=== PATIENT | female | born 1970 | race Caucasian/White ===

== ENCOUNTER → 2017-05-31 15:00 | Outpatient (CLI) | payer BC, SELFPAY ==
--- NOTE | 2017-05-31 15:09 | RAD_ITS ---
STUDY: X-RAY - PELVIS AND BILATERAL HIPS REASON FOR EXAM: Bilateral hip pain. TECHNIQUE: Radiological exam, hip, bilateral, with pelvis when performed; minimum of 5 views COMPARISON: None. FINDINGS: There are pelvic phleboliths. There is enthesopathy of the iliac wings bilaterally. Normal bilateral superior and inferior pubic rami. Normal pubic symphysis. Normal bilateral ischial tuberosities. Normal visualized right femoral head. Normal right acetabulum. Normal right hip joint. Normal visualized left femoral head. Normal left acetabulum. Normal left hip joint. RAD/Hips B/L min 2 views w/ Pelvis IMPRESSION: Pelvic enthesopathy. Otherwise, unremarkable x-ray examination of the pelvis and bilateral hips. Electronically Signed: Carlos Bowie MD at 15:22 EDT Tel , Service support ,
== END ==
PROVIDERS: Family Provider Family Medicine; PCP Family Medicine; Visit Provider Family Medicine
DX: M25.551 Pain in right hip (principal); M25.552 Pain in left hip
CPT/HCPCS: 73521

== ENCOUNTER → 2017-06-01 08:55 | Outpatient (CLI) | payer BC, SELFPAY ==
[2017-06-01 10:07] LABS: Anion Gap 7 (5-15); BUN 11 mg/dL (7-18); BUN/Creat Ratio 18.7 RATIO (10-20); Calcium,Total 8.5 mg/dL (8.5-10.1); Chloride 108 mmol/L (98-107); Cholesterol 165 mg/dL (200); Creatinine, Serum 0.59 mg/dL (0.55-1.02); EST Glomerular Filtration Rate 117 mL/min (>60); Est Glom Filt Rate - Afr Amer 141 mL/min (>60); Glucose 94 mg/dL (74-106); High Density Lipoprotein 35 mg/dL; Potassium 4.1 mmol/L (3.5-5.1); Sodium Level 141 mmol/L (136-145); Triglycerides 96 mg/dL; Very Low Density Lipoprotein 19 mg/dL (5-40)
[2017-06-01 10:27] LABS: Microalbumin:Creatinine Ratio 53.6 mg/g CRE (<30 mg/g CRE)
== END ==
PROVIDERS: Family Provider Family Medicine; PCP Family Medicine; Visit Provider Family Medicine
DX: E11.9 Type 2 diabetes mellitus without complications (principal)
CPT/HCPCS: 36415; 80048; 80061; 82043; 82570

== ENCOUNTER → 2017-08-30 15:18 | Outpatient (CLI) | payer BC, SELFPAY ==
[2017-08-30 19:24] LABS: Microalbumin:Creatinine Ratio 156.2 mg/g CRE (<30 mg/g CRE)
[2017-08-30 22:47] LABS: AST(SGOT) 16 U/L (15-37); Alanine Aminotransfer ALT/SGPT 29 U/L (13-56); Albumin, Serum 3.3 g/dL (3.2-5.0); Alkaline Phosphatase 81 U/L (45-117); Anion Gap 9 (5-15); BUN 11 mg/dL (7-18); BUN/Creat Ratio 15.8 RATIO (10-20); Bilirubin, Direct 0.07 mg/dL (0.00-0.30); Calcium,Total 8.8 mg/dL (8.5-10.1); Chloride 106 mmol/L (98-107); Cholesterol 149 mg/dL (200); EST Glomerular Filtration Rate 96 mL/min (>60); Est Glom Filt Rate - Afr Amer 116 mL/min (>60); Globulin 3.8 g/dL (2.2-4.2); Glucose 281 mg/dL (74-106); High Density Lipoprotein 28 mg/dL; Potassium 3.8 mmol/L (3.5-5.1); Protein, Total 7.1 g/dL (6.4-8.2); Sodium Level 139 mmol/L (136-145); Triglycerides 196 mg/dL; Very Low Density Lipoprotein 39 mg/dL (5-40)
== END ==
PROVIDERS: Family Provider Family Medicine; PCP Family Medicine; Visit Provider Family Medicine
DX: E11.9 Type 2 diabetes mellitus without complications (principal)
CPT/HCPCS: 36415; 80048; 80061; 80076; 82043; 82570

== ENCOUNTER 2017-12-13 08:24 | Observation (INO) | payer BC, SELFPAY ==
[2017-12-13] VITALS (13 sets, daily range): BP systolic 126–200; BP diastolic 72–95; PULSE 75–97; RESP 16–28; TEMP 36.6–37.1; O2SAT 96–100; BMI 31.7; BMI 31.6
--- NOTE | 2017-12-13 08:28 | NURSING ---
NO OLD EKGS
--- NOTE | 2017-12-13 08:33 | EKG12_ITS ---
Test Reason : CHEST PAIN Blood Pressure : / mmHG Vent. Rate : 097 BPM Atrial Rate : 097 BPM P-R Int : 148 ms QRS Dur : 100 ms QT Int : 394 ms P-R-T Axes : 076 034 074 degrees QTc Int : 500 ms Normal sinus rhythm Right atrial enlargement Prolonged QT Abnormal ECG Confirmed by GAYLA BRENNER, SADIQ ([id number]), communications editor POLLO BALLARD ([id number]) on 12/20/2017 2:04:40 PM Referred By: EMANUEL Confirmed By:SADIQ SHUKLA MD
--- NOTE | 2017-12-13 08:35 | RAD_ITS ---
STUDY: X-RAY CHEST REASON FOR EXAM: Female, 47 years old. Chest pain. TECHNIQUE: Single AP portable view of the chest. COMPARISON: None. FINDINGS: EKG electrodes are seen. Scattered calcified granuloma. The lungs are clear. There is no demonstrated pleural abnormality. Normal size heart. Normal mediastinum and jonathan. Normal visualized pulmonary arteries. Normal visualized aortic arch and descending thoracic aorta. Normal visualized thoracic spine. Normal visualized ribs, clavicles, and shoulders. There is a 1.6 cm rounded calcification in the right upper quadrant. This may represent a gallstone. RAD/Chest 1 View (Portable) IMPRESSION: Scattered calcified granulomas. The lungs are otherwise clear. Questionable calcified gallstone. Electronically Signed: Lex Haji MD at 8:49 EDT Tel [phone], Service support ,
[2017-12-13] MEDS: Aspirin 81 MG TAB.CHEW 324 MG PO (08:40)
--- NOTE | 2017-12-13 08:40 | ED.VISSUMM ---
- ER Visit Summary Date of Service: 12/13/17 Chief Complaint: Midsternal chest dullness aching with radiation to the left upper extremity associated with nausea and diaphoresis. History of Present Illness: The patient is a 47 F who presents with midsternal chest discomfort with radiation to left upper extremity associated with nausea and diaphoresis. Onset at 0800 while at work. She states she was sitting when this occurred. She denies prior episode. She is a smoker approximate 1 pack/day. 5 years ago she smoked 2 packs/day. She has history of diabetes and hypertension. She does report symptoms consistent with claudication after walking 1.5 blocks. She states she has not shaved her legs for approximately 1 year due to lack of hair growth. She states she is compliant with her hypertensive medication and diabetic medication. She has not been compliant with her antihypertensive because of cost. She denies fever, chills night sweats. She denies headache, anesthesia, paresthesia or motor weakness. She denies ocular, visual auditory symptoms. She denies history of peptic ulcer disease or GERD. She denies black or maroon stool. Physical Examination: Vital signs noted and blood pressure is elevated at 163/86. HEENT exam is remarkable for her being edentulous. Heart is regular without murmur, gallop or rub. Lungs are clear to auscultation with good move air bilaterally. Abdomen is soft nontender with no palpable cell mass or abdominal bruit. Patient has no hair noted on her legs or toes and her DP and PT pulses are absent bilaterally. Neuro exam is nonfocal. Test Results: EKG reveals a sinus rhythm with a ventricular rate of 97. There is evidence of cor pulmonale. QT interval is prolonged. MI interval is normal. QRS duration is 100 luis-seconds. There are no acute ischemic changes noted. Single view portable chest x-ray interpreted by me as negative for acute pathology. Cardiac silhouette normal. Mid sternum normal. There are chronic changes noted lung parenchyma. Osseous structures are normal. CBC is normal. Basic metabolic panel is remarkable for a glucose of 335 with a normal CO2 and anion gap. First troponin is less than 0.015. Emergency Department Course and Treatment: Concern patient's chest discomfort represents cardiac etiology. She was treated with aspirin and nitroglycerin sublingual since she is currently having substernal discomfort. EKG was obtained, chest x-ray and appropriate blood work. Will speak with cardiology regarding patient. Patient was reassessed at 0920. Patient reports she has minimal discomfort if any at this time. She reported marked improvement with the nitroglycerin. Dr. Dominguez has been paged to discuss case and determine if patient to be admitted to his service or hospitalist and if patient should have a cardiac cath versus stress test. Treatment Plan: Pending discussion with Dr. Dominguez Disposition: PCU Impression: 1. Midsternal chest pain 2. Hyperglycemia and type II diabetic new 3. Hypertension in patient with hypertension 4. Claudication after 1.5 blocks 5. Tobacco use This note was generated with [employer] dictation software. It may contain incorrect words, spelling, and punctuation that were not noted in review of the chart prior to signing ED Disposition - Plan for ED Patient: Chief Complaint: Chest Pain Referrals: Panfilo Mirza MD [Primary Care Provider] -
[2017-12-13 08:45] LABS: Absolute Lymphocyte Count 2.65 X10^3/ul (0.83-4.51); Basophil# 0.03 X10^3/uL; Basophil% 0.4 % (0-1); Eosinophil# 0.14 X10^3/uL; Eosinophils% 1.9 % (0-5); Lymphocyte # 2.65 X10^3/ul (4.0); Mean Corp Hgb Conc 34.1 g/gl (32-36); Mean Corpuscular Hgb 29.5 pg (27.0-32.0); Mean Corpuscular Volume 86.4 fL (81-99); Mean Platelet Vol. 11.6 fl (6.2-12.0); Monocyte# 0.59 X10^3/uL; Neutrophil # 3.95 X10^3/uL (2.7-7.7); Neutrophil % 53.6 % (47-70); POSITIVE COUNT NO; POSITIVE DIFFERENTIAL NO; POSITIVE MORPHOLOGY NO; Platelet Count 175 K/mm3 (150-450); RBC Distribution Width CV 12.9 % (11.6-14.6); RBC Distribution Width SD 39.8 fl (35.1-43.9); Red Blood Count 5.09 M/mm3 (4.2-5.4); White Blood Count 7.4 K/mm3 (4.4-11.0)
[2017-12-13 09:04] LABS: Anion Gap 9 (5-15); BUN 8 mg/dL (7-18); BUN/Creat Ratio 10.9 RATIO (10-20); Calcium,Total 8.7 mg/dL (8.5-10.1); Chloride 100 mmol/L (98-107); Creatinine, Serum 0.74 mg/dL (0.55-1.02); EST Glomerular Filtration Rate 90 mL/min (>60); Est Glom Filt Rate - Afr Amer 108 mL/min (>60); Estimated Creatinine Clearance 81.16 ml/min; Glucose 335 mg/dL (74-106); Potassium 3.6 mmol/L (3.5-5.1); Sodium Level 135 mmol/L (136-145)
--- NOTE | 2017-12-13 09:59 | NURSING ---
PCU OBS DAMIAN CP, HYPERGLYCEMIA, HYPERTENSION
--- NOTE | 2017-12-13 10:32 | EKG12_ITS ---
Test Reason : AM EKG Blood Pressure : / mmHG Vent. Rate : 075 BPM Atrial Rate : 075 BPM P-R Int : 170 ms QRS Dur : 104 ms QT Int : 436 ms P-R-T Axes : 070 027 051 degrees QTc Int : 486 ms Normal sinus rhythm Prolonged QT Abnormal ECG When compared with ECG of 13-DEC-2017 11:09, MANUAL COMPARISON REQUIRED, DATA IS UNCONFIRMED Confirmed by GAYLA BRENNER, SADIQ ([id number]), assignment desk editor POLLO BALLARD ([id number]) on 12/20/2017 2:32:35 PM Referred By: DAMIAN Confirmed By:SADIQ SHUKLA MD
--- NOTE | 2017-12-13 11:10 | PCM.HP.STD ---
Problem List (1) Chest pain Status: Acute Qualifiers: Chest pain type: chest pain due to myocardial ischemia Ischemic chest pain type: unstable angina pectoris Qualified Code(s): I20.0 - Unstable angina History of Present Illness Date of Admission: 12/13/17 Chief Complaint: chest pain The patient is a 47 year old F who was at work today in her normal state of both. 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 Chest pain was across her chest but radiated to her shoulders, down her left arm. It was associated with diaphoresis and headache, nausea and shortness of breath. Patient presented to the emergency room and received nitroglycerin that seemed to have abated the vast majority of this pain and discomfort. Patient is never had anything like this before. Patient being brought in for further chest pain evaluation. 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 Denies: Edema Respiratory: Reports: Shortness of Breath. Denies: Cough Gastrointestinal: Reports: Nausea. Denies: Vomiting Genitourinary: Denies: Dysuria Gynecological: Reports: - - LMP 1 month ago Musculoskeletal: Reports: Arm Pain - left arm, Shoulder Pain Skin: Denies: Rash, Wounds Neurological: Denies: Blurred vision, Double vision, Focal weakness, Numbness, Tingling Psychiatric: Reports: Depression. Denies: Anxiety Endocrine: Denies: Change in Body Habitus, Heat/ Cold Intolerance Hematologic/ Lymphatic: Denies: Easy Bruising, Easy Bleeding, Hx of blood clot VTE Information - Inpt Only VTE Present on Admission: No VTE Pharm Prophylaxis ordered?: Yes Patient Problems: Active and Suspected Problems (Last Updated 12/13/17 @ 11:21 by Boom Hansen DO) Chest pain (Acute) - Physical Exam General: Alert, Cooperative, No apparent distress HEENT: Atraumatic, Normocephalic Oral: Moist Mucosa, No Gingival or Mucosal Lesions/ Ulcerations Neck: No Nodes, Thyroid Normal Size and Texture Lungs: Clear to auscultation, Normal air movement, No rhonchi, No wheeze Cardiovascular: Regular rate, Regular Rhythm, Normal S1, Normal S2, No murmurs Abdomen: Bowel Sounds Present, Soft, Non Tender, Non-Distended, No Hepato-splenomegaly Extremities: No edema, No Calf Tenderness Skin: No rashes, No breakdown Musculoskeletal: No Tenderness to Palpation of Joints or Extremities, No Muscle Wasting Neurological: Neuro grossly intact, Sensory exam intact to light touch and pain Psych/Mental Status: Normal Affect, Appropriate Vital Signs Temp Pulse Resp BP Pulse Ox 36.6 C 78 16 126/72 H 100 12/13/17 10:57 12/13/17 10:57 12/13/17 10:57 12/13/17 10:57 12/13/17 10:57 Oxygen Flow Rate (L/min) 2 Oxygen Delivery Method Nasal Cannula Weight: 83.7 kg Body Mass Index (BMI) 31.6 Laboratory Tests Past 24 Hrs 12/13/17 12/13/17 08:36 08:36 WBC 7.4 RBC 5.09 Hgb 15.0 Hct 44.0 MCV 86.4 MCH 29.5 MCHC 34.1 RDW 12.9 RDW Differential 39.8 Plt Count 175 MPV 11.6 Immature Gran % (Auto) 0.100 Neut % (Auto) 53.6 Lymph % (Auto) 36.0 [place] % (Auto) 8.0 Eos % (Auto) 1.9 Baso % (Auto) 0.4 Absolute Neuts (auto) 4.0 Absolute Lymphs (auto) 2.65 Total Counted Not Reportable Sodium 135 L Potassium 3.6 Chloride 100 Carbon Dioxide 26.0 Anion Gap 9 BUN 8 Creatinine 0.74 Estim Creat Clear Calc 81.16 Est GFR (MDRD) Af Amer 108 Est GFR (MDRD) Non-Af 90 BUN/Creatinine Ratio 10.9 Glucose 335 H Calcium 8.7 Troponin I < 0.015 Assessment/Plan All Active Problems (Last Updated 12/13/17 @ 11:21 by Boom Hansen DO) Chest pain (Acute) 1. chest pain YASIR 2 KATE 72 check an additional troponin, if negative, then stress echocardiogram if stress negative, then DC home. If positive, then consult cardiology DW Dr. Dominguez, hold consult unless positive stress test Continue with ASA, PRN NTG 2. DM2 uncontrolled check an A1c SSI for now 3. Depression: continue Buspar 4. HTN stable, continue lisinopril 5. DVT proph: LMWH. Code Visit OBSV E&M: 95465 Initial observation care L3
--- NOTE | 2017-12-13 11:19 | HP.PCM_ITS ---
Problem List (1) Chest pain Status: Acute Qualifiers: Chest pain type: chest pain due to myocardial ischemia Ischemic chest pain type: unstable angina pectoris Qualified Code(s): I20.0 - Unstable angina History of Present Illness Date of Admission: 12/13/17 Chief Complaint: chest pain The patient is a 47 year old F who was at work today in her normal state of both. 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 Chest pain was across her chest but radiated to her shoulders, down her left arm. It was associated with diaphoresis and headache, nausea and shortness of breath. Patient presented to the emergency room and received nitroglycerin that seemed to have abated the vast majority of this pain and discomfort. Patient is never had anything like this before. Patient being brought in for further chest pain evaluation. [] Past Medical History Medical History: Medical History (Last Updated 12/13/17 @ 11:21 by Boom Hansen DO) DM2 (diabetes mellitus, type 2) E11.9 Depression F32.9 HTN (hypertension) I10 Allergies Penicillins [PCN] Allergy (Verified 12/13/17 08:28) Other INTENSIVIES WHAT IT IS SUPPOSED TO BE TREATING Home Medications: Ambulatory Orders Medication Instructions Recorded Bupropion HCl [Bupropion HCl Sr] 150 mg PO BID 12/13/17 Lisinopril [Zestril] 2.5 mg PO DAILY 12/13/17 Psychiatric History: Depression MEDICAID SPECIALIST History: No pertinent MEDICAID SPECIALIST history Smoking Status: Heavy Smoker (>10/day) Tobacco Use: Cigarettes Alcohol: None Drugs: None - *Family History Maternal History Items: Heart Disease Review of Systems Constitutional: Denies: Anorexia, Chills, Fever, Malaise, Weakness Eyes: Denies: Blurred vision, Double vision HEENT: Denies: Head Aches, Sinus Congestion, Sinus Drainage Cardiovascular: Reports: Chest Pain. Denies: Edema Respiratory: Reports: Shortness of Breath. Denies: Cough Gastrointestinal: Reports: Nausea. Denies: Vomiting Genitourinary: Denies: Dysuria Gynecological: Reports: - - LMP 1 month ago Musculoskeletal: Reports: Arm Pain - left arm, Shoulder Pain Skin: Denies: Rash, Wounds Neurological: Denies: Blurred vision, Double vision, Focal weakness, Numbness, Tingling Psychiatric: Reports: Depression. Denies: Anxiety Endocrine: Denies: Change in Body Habitus, Heat/ Cold Intolerance Hematologic/ Lymphatic: Denies: Easy Bruising, Easy Bleeding, Hx of blood clot VTE Information - Inpt Only VTE Present on Admission: No VTE Pharm Prophylaxis ordered?: Yes Patient Problems: Active and Suspected Problems (Last Updated 12/13/17 @ 11:21 by Boom Hansen DO) Chest pain (Acute) - Physical Exam General: Alert, Cooperative, No apparent distress HEENT: Atraumatic, Normocephalic Oral: Moist Mucosa, No Gingival or Mucosal Lesions/ Ulcerations Neck: No Nodes, Thyroid Normal Size and Texture Lungs: Clear to auscultation, Normal air movement, No rhonchi, No wheeze Cardiovascular: Regular rate, Regular Rhythm, Normal S1, Normal S2, No murmurs Abdomen: Bowel Sounds Present, Soft, Non Tender, Non-Distended, No Hepato- splenomegaly Extremities: No edema, No Calf Tenderness Skin: No rashes, No breakdown Musculoskeletal: No Tenderness to Palpation of Joints or Extremities, No Muscle Wasting Neurological: Neuro grossly intact, Sensory exam intact to light touch and pain Psych/Mental Status: Normal Affect, Appropriate Vital Signs Temp Pulse Resp BP Pulse Ox 36.6 C 78 16 126/72 H 100 12/13/17 10:57 12/13/17 10:57 12/13/17 10:57 12/13/17 10:57 12/13/17 10:57 Oxygen Flow Rate (L/min) 2 Oxygen Delivery Method Nasal Cannula Weight: 83.7 kg Body Mass Index (BMI) 31.6 Laboratory Tests Past 24 Hrs 12/13/17 12/13/17 08:36 08:36 WBC 7.4 RBC 5.09 Hgb 15.0 Hct 44.0 MCV 86.4 MCH 29.5 MCHC 34.1 RDW 12.9 RDW Differential 39.8 Plt Count 175 MPV 11.6 Immature Gran % (Auto) 0.100 Neut % (Auto) 53.6 Lymph % (Auto) 36.0 [place] % (Auto) 8.0 Eos % (Auto) 1.9 Baso % (Auto) 0.4 Absolute Neuts (auto) 4.0 Absolute Lymphs (auto) 2.65 Total Counted Not Reportable Sodium 135 L Potassium 3.6 Chloride 100 Carbon Dioxide 26.0 Anion Gap 9 BUN 8 Creatinine 0.74 Estim Creat Clear Calc 81.16 Est GFR (MDRD) Af Amer 108 Est GFR (MDRD) Non-Af 90 BUN/Creatinine Ratio 10.9 Glucose 335 H Calcium 8.7 Troponin I < 0.015 Assessment/Plan All Active Problems (Last Updated 12/13/17 @ 11:21 by Boom Hansen DO) Chest pain (Acute) 1. chest pain * YASIR 2 * KATE 72 * check an additional troponin, if negative, then stress echocardiogram * if stress negative, then DC home. If positive, then consult cardiology * DW Dr. Dominguez, hold consult unless positive stress test * Continue with ASA, PRN NTG 2. DM2 * uncontrolled * check an A1c * SSI for now 3. Depression: * continue Buspar 4. HTN * stable, continue lisinopril 5. DVT proph: LMWH. Code Visit OBSV E&M: 02502 Initial observation care L3
[2017-12-13 11:55] LABS: Bedside Glucose 270 mg/dL (70-110)
[2017-12-13] MEDS: Insulin Lispro 100 UNIT/ML INSULN.PEN SQ ×2 (12:07→15:48)
[2017-12-13 12:56] LABS: Hemoglobin A1c 9.5 % (4.2-6.3)
--- NOTE | 2017-12-13 13:06 | ECHOD_ITS ---
Reason For Study: chest pain Procedure This was a 2D Doppler, Color Flow transthoracic echocardiogram. Exam performed portable in patient room. Left Ventricle Normal size and thickness. Mild concentric left ventricular hypertrophy. Left ventricular systolic function is normal. The estimated ejection fraction is 70 %. Stage 1 diastolic dysfunction. No regional wall motion abnormalities noted. Right Ventricle Normal size and thickness. Normal systolic function. Atria Normal left atrium. Normal right atrium. Mitral Valve Normal mitral valve. Tricuspid Valve Normal tricuspid valve. Mild tricuspid valve insufficiency. Pulmonary artery systolic pressure is 28 mmHg. Aortic Valve Normal aortic valve. Trisinus/trileaflet aortic valve. Pulmonic Valve Normal pulmonic valve. Great Vessels Normal aortic root. The pulmonary artery is normal size. Normal inferior vena cava. Pericardium/Pleural No pericardial effusion. MMode/2D Measurements & Calculations LVIDd: 4.2 cm IVSd: 1.3 cm Ao root diam: 3.0 cm LVIDs: 2.8 cm LVPWd: 1.4 cm RVDd: 2.8 cm FS: 34.0 % LAV(MOD-bp): 45.1 ml LA A4 area: 15.7 cm2 LA dimension(2D): 3.9 cm LAV(MOD-bp) Indexed: 24.2 ml/m2 LAV(MOD-sp2): 43.4 ml LAV(MOD-sp4): 44.5 ml RA A4 area: 12.6 cm2 Doppler Measurements & Calculations MV E max negrito: 71.8 cm/sec Lat Peak E' Negrito: 10.4 cm/sec Med Peak E' Negrito: 6.6 cm/sec MV A max negrito: 85.8 cm/sec E/E' lat: 6.9 E/E' med: 10.8 MV E/A: 0.84 Ao V2 max: 161.0 cm/sec LV V1 max: 122.7 cm/sec PA V2 max: 110.6 cm/sec Ao max P.4 mmHg LV V1 max P.0 mmHg TR max negrito: 239.6 cm/sec TR max P.0 mmHg Interpretation Summary Normal size and thickness. Mild concentric left ventricular hypertrophy. Left ventricular systolic function is normal. The estimated ejection fraction is 70 %. Stage 1 diastolic dysfunction. Ordering Physician: Aditya Dominguez MD Referring Physician: Panfilo Mirza Performed By: Regina Mohan, ALEXANDRE, RVT
[2017-12-13 13:52] LABS: Internal QC Validated? YES +Cl - CLEAR BKGD; Pregnancy, Urine Negative Negative
[2017-12-13] MEDS: Clopidogrel Bisulfate 300 MG Tablet PO (14:57)
[2017-12-13 16:16] LABS: Bedside Glucose 368 mg/dL (70-110)
--- NOTE | 2017-12-13 17:25 | PCM.CONS.C ---
Reason for Consult Date of Consultation: 12/13/17 Reason for Consultation: Chest pressure History of Present Illness: The patient is a 47 year old F with a past medical history significant for hypertension and diabetes mellitus who presented to the emergency room after experiencing chest pressure. She described this as a tightness across her chest associated with nausea or diaphoresis and and vomiting. She presented to the emergency room was evaluated and given sublingual nitroglycerin with improvement in the discomfort. She says that there was associated heaviness in her left arm. It occurred at rest with minimal exertion. She does have a history of tobacco use. An electrocardiogram was done which did not demonstrate any significant abnormalities. Initially we had planned on performing a stress test but his second troponin came back mildly abnormal and therefore it was decided to reevaluate her. 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 Denies: Shortness of Breath, Orthopnea, PND, Peripheral Edema, Palpitations, Lightheadedness, Dizziness, Near Syncope, Syncope Respiratory: Denies: Cough, Sputum Production, Hemoptysis Gastrointestinal: Denies: Abdominal Discomfort, Hematemesis, Hematochezia, Melena Genitourinary: Denies: Dysuria, Hematuria Muscoloskeletal: Denies: Myalgias, Muscle Weakness Skin: Denies: Rash Neurological: Denies: Dizziness Psychiatric: Denies: Anxiety Endocrine: Denies: Heat Intolerance Hematologic/ Lymphatic: Denies: Anemia, Easy Brusing Subjectve: Pleasant lady in no apparent distress at this time Objective: Vital Signs Temp Pulse Resp BP Pulse Ox 98.1 F 87 18 134/78 H 97 12/13/17 16:50 12/13/17 16:50 12/13/17 16:50 12/13/17 16:50 12/13/17 16:50 Oxygen Flow Rate (L/min) 2 Oxygen Delivery Method Room Air Weight: 184 lb 8.43 oz Body Mass Index (BMI) 31.6 Intake and Output for Last 24 Hours 12/11/17 12/12/17 12/13/17 23:59 23:59 23:59 Intake Total 600 / 600 Balance 600 / 600 General: Awake, Alert, Oriented x 3 HEENT: PERRL, EOMI, Sclera Non Icteric Neck: Supple, Good ROM, No Lymph Node Enlargement Lungs: Clear to auscultation Cardiovascular: Regular Rhythm, Normal S1, Normal S2, No Murmurs, No Rubs, No Gallops Vascular: No Carotid Bruits, Normal Femoral Pulses, Normal Radial Pulses, Normal Dorsalis Pedal Pulse, Normal Posterior Tibial Pulses Abdomen: Bowel Sounds Present, Soft, Non Tender, No HSM, No Organomegaly Extremities: No Cyanosis, No Clubbing, No edema Neurological: No Focal Motor or Sensory Deficit 12/13/17 08:36: WBC 7.4, RBC 5.09, Hgb 15.0, Hct 44.0, MCV 86.4, MCH 29.5, MCHC 34.1, RDW 12.9, RDW Differential 39.8, Plt Count 175, MPV 11.6, Immature Gran % (Auto) 0.100, Neut % (Auto) 53.6, Lymph % (Auto) 36.0, [place] % (Auto) 8.0, Eos % (Auto) 1.9, Baso % (Auto) 0.4, Absolute Neuts (auto) 4.0, Total Counted Not Reportable 12/13/17 08:36: Sodium 135 L, Potassium 3.6, Chloride 100, Carbon Dioxide 26.0, Anion Gap 9, BUN 8, Creatinine 0.74, Est GFR (MDRD) Af Amer 108, Est GFR (MDRD) Non-Af 90, BUN/Creatinine Ratio 10.9, Glucose 335 H, Calcium 8.7, Troponin I < 0.015 12/13/17 11:55: Hemoglobin A1c 9.5 H 12/13/17 11:55: Troponin I 0.027 10/31/18 14:25: Troponin I 0.045 Rhythm: EKG: Normal sinus rhythm with no acute changes ECHO: Pending Assessment/Plan 1. Chest pain Patient presents with chest and arm pain which is somewhat concerning for angina. In light of the mildly abnormal troponin my recommendation would be for us to proceed with a left heart catheterization. The risk benefits and alternatives have been explained to her she understands and agrees to proceed. In the meantime we would institute the following medications. Aspirin 81 mg a day Metoprolol 25 mg twice a day Clopidogrel 300 mg now and 75 mg daily High intensity statin 2. Hypertension Pressure appears to be under decent control and will continue current medical therapy as noted above. Thank you for allowing me to participate in the care of your patient. Please don't hesitate to call if any issues arise
--- NOTE | 2017-12-13 17:29 | CON.PCM_ITS ---
Reason for Consult Date of Consultation: 12/13/17 Reason for Consultation: Chest pressure History of Present Illness: The patient is a 47 year old F with a past medical history significant for hypertension and diabetes mellitus who presented to the emergency room after experiencing chest pressure. She described this as a tightness across her chest associated with nausea or diaphoresis and and vomiting. She presented to the emergency room was evaluated and given sublingual nitroglycerin with improvement in the discomfort. She says that there was associated heaviness in her left arm. It occurred at rest with minimal exertion. She does have a history of tobacco use. An electrocardiogram was done which did not demonstrate any significant abnormalities. Initially we had planned on performing a stress test but his second troponin came back mildly abnormal and therefore it was decided to reevaluate her. 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 Denies: Shortness of Breath, Orthopnea, PND, Peripheral Edema, Palpitations, Lightheadedness, Dizziness, Near Syncope, Syncope Respiratory: Denies: Cough, Sputum Production, Hemoptysis Gastrointestinal: Denies: Abdominal Discomfort, Hematemesis, Hematochezia, Melena Genitourinary: Denies: Dysuria, Hematuria Muscoloskeletal: Denies: Myalgias, Muscle Weakness Skin: Denies: Rash Neurological: Denies: Dizziness Psychiatric: Denies: Anxiety Endocrine: Denies: Heat Intolerance Hematologic/ Lymphatic: Denies: Anemia, Easy Brusing Subjectve: Pleasant lady in no apparent distress at this time Objective: Vital Signs Temp Pulse Resp BP Pulse Ox 98.1 F 87 18 134/78 H 97 12/13/17 16:50 12/13/17 16:50 12/13/17 16:50 12/13/17 16:50 12/13/17 16:50 Oxygen Flow Rate (L/min) 2 Oxygen Delivery Method Room Air Weight: 184 lb 8.43 oz Body Mass Index (BMI) 31.6 Intake and Output for Last 24 Hours 12/11/17 12/12/17 12/13/17 23:59 23:59 23:59 Intake Total 600 / 600 Balance 600 / 600 General: Awake, Alert, Oriented x 3 HEENT: PERRL, EOMI, Sclera Non Icteric Neck: Supple, Good ROM, No Lymph Node Enlargement Lungs: Clear to auscultation Cardiovascular: Regular Rhythm, Normal S1, Normal S2, No Murmurs, No Rubs, No Gallops Vascular: No Carotid Bruits, Normal Femoral Pulses, Normal Radial Pulses, Normal Dorsalis Pedal Pulse, Normal Posterior Tibial Pulses Abdomen: Bowel Sounds Present, Soft, Non Tender, No HSM, No Organomegaly Extremities: No Cyanosis, No Clubbing, No edema Neurological: No Focal Motor or Sensory Deficit 12/13/17 08:36: WBC 7.4, RBC 5.09, Hgb 15.0, Hct 44.0, MCV 86.4, MCH 29.5, MCHC 34.1, RDW 12.9, RDW Differential 39.8, Plt Count 175, MPV 11.6, Immature Gran % (Auto) 0.100, Neut % (Auto) 53.6, Lymph % (Auto) 36.0, [place] % (Auto) 8.0, Eos % (Auto) 1.9, Baso % (Auto) 0.4, Absolute Neuts (auto) 4.0, Total Counted Not Reportable 12/13/17 08:36: Sodium 135 L, Potassium 3.6, Chloride 100, Carbon Dioxide 26.0, Anion Gap 9, BUN 8, Creatinine 0.74, Est GFR (MDRD) Af Amer 108, Est GFR (MDRD) Non-Af 90, BUN/Creatinine Ratio 10.9, Glucose 335 H, Calcium 8.7, Troponin I < 0.015 12/13/17 11:55: Hemoglobin A1c 9.5 H 12/13/17 11:55: Troponin I 0.027 12/13/17 14:25: Troponin I 0.045 Rhythm: EKG: Normal sinus rhythm with no acute changes ECHO: Pending Assessment/Plan 1. Chest pain * Patient presents with chest and arm pain which is somewhat concerning for angina. In light of the mildly abnormal troponin my recommendation would be for us to proceed with a left heart catheterization. The risk benefits and alternatives have been explained to her she understands and agrees to proceed. In the meantime we would institute the following medications. * Aspirin 81 mg a day * Metoprolol 25 mg twice a day * Clopidogrel 300 mg now and 75 mg daily * High intensity statin * 2. Hypertension * Pressure appears to be under decent control and will continue current medical therapy as noted above. * * Thank you for allowing me to participate in the care of your patient. Please don't hesitate to call if any issues arise
[2017-12-13] MEDS: Metoprolol Tartrate 25 MG Tablet PO (22:35)
[2017-12-13] MEDS: buPROPion (SR) 150 MG Tablet.SA PO (22:36)
[2017-12-13 22:46] LABS: Bedside Glucose 265 mg/dL (70-110)
[2017-12-14] VITALS (38 sets, daily range): BP systolic 104–204; BP diastolic 52–90; PULSE 62–106; RESP 10–29; TEMP 36.4–36.8; O2SAT 94–100
[2017-12-14] MEDS: Aspirin E.C. 81 MG Tablet PO (05:18)
--- NOTE | 2017-12-14 05:30 | EKG12_ITS ---
Test Reason : CP REPEAT Blood Pressure : / mmHG Vent. Rate : 072 BPM Atrial Rate : 072 BPM P-R Int : 146 ms QRS Dur : 100 ms QT Int : 442 ms P-R-T Axes : 062 045 069 degrees QTc Int : 483 ms Normal sinus rhythm Prolonged QT Abnormal ECG When compared with ECG of 13-DEC-2017 08:30, MANUAL COMPARISON REQUIRED, DATA IS UNCONFIRMED Confirmed by GAYLA BRENNER, SADIQ ([id number]), editor managing director POLLO BALLARD ([id number]) on 12/20/2017 2:33:53 PM Referred By: CLARISSE Confirmed By:SADIQ SHUKLA MD
[2017-12-14 06:48] LABS: Hematocrit 39.5 % (37-47); Hemoglobin 13.5 g/dl (12.0-15.0); Mean Corp Hgb Conc 34.2 g/gl (32-36); Mean Corpuscular Hgb 29.8 pg (27.0-32.0); Mean Corpuscular Volume 87.2 fL (81-99); Mean Platelet Vol. 12.2 fl (6.2-12.0); Platelet Count 171 K/mm3 (150-450); RBC Distribution Width CV 12.9 % (11.6-14.6); RBC Distribution Width SD 39.9 fl (35.1-43.9); Red Blood Count 4.53 M/mm3 (4.2-5.4); White Blood Count 8.4 K/mm3 (4.4-11.0)
[2017-12-14 06:54] LABS: Prothrombin Time (Protime)PT. 13.5 SECONDS (11.7-14.9)
[2017-12-14 06:55] LABS: Partial Thromboplast Time 27.3 Seconds (24.1-36.2)
[2017-12-14 07:08] LABS: BUN 12 mg/dL (7-18); Creatinine, Serum 0.56 mg/dL (0.55-1.02); Estimated Creatinine Clearance 107.24 ml/min; Glucose 274 mg/dL (74-106)
[2017-12-14 07:09] LABS: Anion Gap 8 (5-15); BUN/Creat Ratio 21.5 RATIO (10-20); Calcium,Total 8.4 mg/dL (8.5-10.1); Chloride 106 mmol/L (98-107); EST Glomerular Filtration Rate 123 mL/min (>60); Est Glom Filt Rate - Afr Amer 149 mL/min (>60); Potassium 3.9 mmol/L (3.5-5.1); Sodium Level 137 mmol/L (136-145)
[2017-12-14 07:11] LABS: Scan Indicated on CBC? Y/N NO
[2017-12-14 07:20] LABS: Bedside Glucose 271 mg/dL (70-110)
[2017-12-14] MEDS: Clopidogrel Bisulfate 75 MG Tablet PO (07:31)
[2017-12-14] MEDS: Metoprolol Tartrate 25 MG Tablet PO ×2 (07:31→21:30)
[2017-12-14] MEDS: Lisinopril 2.5 MG Tablet PO (07:31)
[2017-12-14] MEDS: Insulin Lispro 100 UNIT/ML INSULN.PEN SQ ×3 (07:33→18:06)
[2017-12-14 08:07] LABS: Cholesterol 149 mg/dL (200); High Density Lipoprotein 27 mg/dL; Triglycerides 161 mg/dL; Very Low Density Lipoprotein 32 mg/dL (5-40)
--- NOTE | 2017-12-14 09:04 | PN.CARD_ITS ---
Subjectve: Patient seen and evaluated. Objective: Vital Signs Temp Pulse Resp BP Pulse Ox 98.2 F 73 20 H 140/76 H 96 12/14/17 07:26 12/14/17 07:31 12/14/17 07:26 12/14/17 07:31 12/14/17 07:26 Oxygen Flow Rate (L/min) 2 Oxygen Delivery Method Room Air Weight: 184 lb 8.43 oz Body Mass Index (BMI) 31.6 Intake and Output for Last 24 Hours 12/12/17 12/13/17 12/14/17 23:59 23:59 23:59 Intake Total 720 / 720 50 / 50 Balance 720 / 720 50 / 50 General: Awake, Alert, Oriented x 3 HEENT: PERRL, EOMI, Sclera Non Icteric Neck: Supple, Good ROM, No Lymph Node Enlargement Lungs: Clear to auscultation Cardiovascular: Regular Rhythm, Normal S1, Normal S2, No Murmurs, No Rubs, No Gallops Vascular: No Carotid Bruits, Normal Femoral Pulses, Normal Radial Pulses, Normal Dorsalis Pedal Pulse, Normal Posterior Tibial Pulses Abdomen: Bowel Sounds Present, Soft, Non Tender, No HSM, No Organomegaly Extremities: No Cyanosis, No Clubbing, No edema Neurological: No Focal Motor or Sensory Deficit 12/13/17 08:36: Sodium 135 L, Potassium 3.6, Chloride 100, Carbon Dioxide 26.0, Anion Gap 9, BUN 8, Creatinine 0.74, Est GFR (MDRD) Af Amer 108, Est GFR (MDRD) Non-Af 90, BUN/Creatinine Ratio 10.9, Glucose 335 H, Calcium 8.7, Troponin I < 0.015 12/13/17 11:55: Hemoglobin A1c 9.5 H 12/13/17 11:55: Troponin I 0.027 12/13/17 14:25: Troponin I 0.045 12/14/17 06:12: Triglycerides 161, Cholesterol 149, LDL Cholesterol 90, VLDL Cholesterol 32, HDL Cholesterol 27 L 12/14/17 06:12: WBC 8.4, RBC 4.53, Hgb 13.5, Hct 39.5, MCV 87.2, MCH 29.8, MCHC 34.2, RDW 12.9, RDW Differential 39.9, Plt Count 171, MPV 12.2 H 12/14/17 06:12: PT 13.5, INR 1.0, APTT 27.3 12/14/17 06:12: Sodium 137, Potassium 3.9, Chloride 106, Carbon Dioxide 23.0, Anion Gap 8, BUN 12, Creatinine 0.56, Est GFR (MDRD) Af Amer 149, Est GFR (MDRD) Non-Af 123, BUN/Creatinine Ratio 21.5 H, Glucose 274 H, Calcium 8.4 L Rhythm: EKG: ECHO: Stress Test: Cardiac Cath: PCI: CT Surgery: Holter monitor: EPS: PPM: CXR: Chest CT Scan: Medical Necessity - Tobacco Use Smoking Status: Heavy Smoker (>10/day) Tobacco Use: Cigarettes Assessment/Plan 1. Chest pain * Patient presents with chest and arm pain which is somewhat concerning for angina. In light of the mildly abnormal troponin my recommendation would be for us to proceed with a left heart catheterization. * She underwent a cardiac catheterization today which demonstrated the following: Normal left main coronary artery. Left anterior descending artery with no significant disease. Left circumflex artery which is codominant with no significant stenosis. First obtuse marginal branch with proximal 50% stenosis. Codominant right coronary artery with ostial 95% stenosis. Preserved left ventricular systolic function. Based on the above angiographic findings the patient will be considered for angioplasty of the right coronary artery. * 2. Hypertension * Pressure appears to be under decent control and will continue current medical therapy as noted above. * * Thank you for allowing me to participate in the care of your patient. Please don't hesitate to call if any issues arise
--- NOTE | 2017-12-14 09:10 | CL.D_ITS ---
Patient Name: WILDER BALDERAS Study Date: 12/14/2017 Performing: Aditya Dominguez MD Ht: 64.17 inches 163 cm : 1970 Wt: 185.19 lbs 84 kg Age: 47 Gender: female BSA: 1.9 PROCEDURE(S) PERFORMED OC95-FVM/COR/LV CLINICAL PROFILE AND INDICATIONS Indications: ACS <= 24 hrs Heart Failure: None Stress/Imaging Stress/Image Study Performed: No Angina Classification Anginal Classification w/in 2 Weeks: CCS III CAD Presentations: Unstable angina. CONCLUSIONS ostial RCA stenosis 95% RECOMMENDATIONS Referred for immediate PCI DESCRIPTION OF PROCEDURE The patient arrived to the procedure lab. The risks and benefits of the procedure as well as a full d escription of our services here and current unavailability of surgical backup were fully explained to the patient and/or their significant other prior to the catheterization. The Timeout was completed, verifying the correct patient and procedure. The patient's procedural site was prepped and draped in the usual fashion. Local anesthetic was given subcutaneously to right radial region with Lidocaine 2% . Using a modified Seldinger technique, arterial access was obtained via the right radial artery, a 6 Fr sheath was inserted. Right Coronary Artery selective angiography was then performed in multiple v iews using a 5 Fr. 4.0 Van Wert catheter. Left Coronary Artery selective angiography was performed in mu ltiple views using a 5 Fr. 4.0 [place] Wert catheter. Left Ventriculography was performed in MATTHEWS projection using a 5 Fr. Pigtail catheter. LV to AO pullback pressures were then recorded. CORONARY ANGIOGRAPHY DOMINANCE: Co- Dominant LEFT HEART ASSESSMENT Left Ventricular Ejection Fraction: by LV Gram 55 % Normal Left Ventricular systolic function LEFT MAIN: Angiographically normal LEFT ANTERIOR DECENDING ARTERY: Mild luminal irregularities CIRCUMFLEX ARTERY: Mild luminal irregularities OM 1: Ostial - Moderate luminal irregularities up to 50% RIGHT CORONARY ARTERY: Mild luminal irregularities OSTIAL RCA: 95 % Stenosis COMPLICATIONS PROCEDURE MEDICATIONS Fentanyl 50 mcg IV Versed 1 mg IV Versed 1 mg IV Oxygen: 2 L/min via nasal cannula Heparin diluted in 23cc Heparinized saline. Patient given 10cc IA of this solution. 12/14/2017 08:04: 36 Heparin 7000 unit(s) IV 12/14/2017 08:55:37 Heparin 2000 unit(s) IV 12/14/2017 09:09:11 Nitro 200 mcg IC 12/14/2017 09:05:31 Verapamil 2.5mg, Ntg 100mcgs, 2000 units of Heparin diluted in 23cc Heparinized saline. Patient give n 10cc IA of this solution. 12/14/2017 08:04:36 IV Bolus: .9 NaCl 250 ml total 12/14/2017 08:08:07 IV Bolus: .9 NaCl 500 ml total 12/14/2017 09:05:57 IV Fluids: .9 NaCl IV started @ 150 ml/hr 12/14/2017 08:23:12 SUMMARY OF HEMODYNAMIC DATA Time AIR REST ECG 07:48:31 AO 107/65 (83) SA 08:06:18 AO 91/58 (73) 08:08:15 LV 135/-2, 5 08:25:57 LV 118/0, 8 08:26:03 LV 144/-12, 10 08:27:18 LVp 149/-12, 11 08:27:23 AOp 152/58 (92) 08:27:28 AO 163/78 (109) 09:03:22 Signed By Aditya Dominguez MD On 12/14/2017 09:09:54 Aditya Dominguez MD
--- NOTE | 2017-12-14 09:30 | EKG12_ITS ---
Test Reason : POST PCI Blood Pressure : / mmHG Vent. Rate : 064 BPM Atrial Rate : 064 BPM P-R Int : 158 ms QRS Dur : 108 ms QT Int : 456 ms P-R-T Axes : 058 035 059 degrees QTc Int : 470 ms Normal sinus rhythm Normal ECG When compared with ECG of 14-DEC-2017 04:03, MANUAL COMPARISON REQUIRED, DATA IS UNCONFIRMED Confirmed by GAYLA BRENNER, SADIQ ([id number]), editor news POLLO BALLARD ([id number]) on 12/21/2017 4:15:22 PM Referred By: KUNAL Confirmed By:SADIQ SHUKLA MD
--- NOTE | 2017-12-14 10:01 | CRPHASE1 ---
Patient Data/Charges Phase II Referral:: [facility] Start Phase II:: FOLLOWING CARDIOLOGY OFFICE VISIT Risk Factors/Lifestyle Smoking Status: Heavy Smoker (>10/day) Hx Hypertension: Yes Hx Diabetes Mellitus Type 2: Yes Hx Metabolic Disorders: Yes Hx Dyslipidemia: Yes Hx Obesity: Yes Height: 5 ft 4 in - BMI 31.7 Post-Menopausal: No Stress: Home/Family Risk Factor for Sedentary Lifestyle: Moderate Risk Laboratory Values: Cardiac Rehab Phase I Labs Hemoglobin A1c 9.5 % (4.2-6.3) H 12/13/17 11:55 Triglycerides 161 mg/dL (-199) 12/14/17 06:12 Cholesterol 149 mg/dL (200) 12/14/17 06:12 LDL Cholesterol 90 mg/dL (0-130) 12/14/17 06:12 HDL Cholesterol 27 mg/dL (40-) L 12/14/17 06:12 Phase I Education Given On:: [place], Nutrition, Antiplatelet medication, Smoking cessation, Diabetes - Type II Issues Affecting Care:: None Knowledge of Condition:: Yes Learning Preferences: Verbal, Written Hospital Course Presenting Symptoms:: CHEST PAIN Medical/Surgical History [place]:: No Diabetes Type II:: Yes - a1c 9.5 Hypertension:: Yes Dyslipidemia:: Yes Discharge/Home/Social Eval Discharge Disposition: Home
--- NOTE | 2017-12-14 10:04 | CRPHASE1_ITS ---
Patient Data/Charges Phase II Referral:: [facility] Start Phase II:: FOLLOWING CARDIOLOGY OFFICE VISIT Risk Factors/Lifestyle Smoking Status: Heavy Smoker (>10/day) Hx Hypertension: Yes Hx Diabetes Mellitus Type 2: Yes Hx Metabolic Disorders: Yes Hx Dyslipidemia: Yes Hx Obesity: Yes Height: 5 ft 4 in - BMI 31.7 Post-Menopausal: No Stress: Home/Family Risk Factor for Sedentary Lifestyle: Moderate Risk Laboratory Values: Cardiac Rehab Phase I Labs Hemoglobin A1c 9.5 % (4.2-6.3) H 12/13/17 11:55 Triglycerides 161 mg/dL (-199) 12/14/17 06:12 Cholesterol 149 mg/dL (200) 12/14/17 06:12 LDL Cholesterol 90 mg/dL (0-130) 12/14/17 06:12 HDL Cholesterol 27 mg/dL (40-) L 12/14/17 06:12 Phase I Education Given On:: [place], Nutrition, Antiplatelet medication, Smoking cessation, Diabetes - Type II Issues Affecting Care:: None Knowledge of Condition:: Yes Learning Preferences: Verbal, Written Hospital Course Presenting Symptoms:: CHEST PAIN Medical/Surgical History [place]:: No Diabetes Type II:: Yes - a1c 9.5 Hypertension:: Yes Dyslipidemia:: Yes Discharge/Home/Social Eval Discharge Disposition: Home
--- NOTE | 2017-12-14 10:04 | CRPH1.INSTRU ---
General Education CAD and cardiac anatomy and function:: Patient communicates acknowledgment Explanation of diagnoses and procedures:: Patient communicates acknowledgment Sign/Symptoms of [place]:: Patient communicates acknowledgment Antiplatelet therapy: Patient communicates acknowledgment Proper use of NTG-SL: Patient communicates acknowledgment Emergency procedures and activation of EMS: Patient communicates acknowledgment Compliance of all prescribed medications: Patient communicates acknowledgment Smoking Patient Nicotine/Smoking Risk Factors Are:: Cigarettes Recommendations Include:: Second-hand smoke recommendation, Participation in a smoking cessation program Nicotine/Smoking Response Code:: Patient communicates acknowledgment Dyslipidemia Patient Dyslipidemia Risk Factors Are:: Total Cholesterol, Triglycerides, HDL, LDL Recommendations Include:: Lipid profile provided, Reviewed NCEP/ATP guidelines, Therapeutic Lifestyle Change dietary guidelines Dyslipidemia Response Code:: Patient communicates acknowledgment Overweight/Obesity Patient Overweight/Obesity Risk Factors Are:: Obesity - > or = 30 Recommendations Include:: Weight loss of 5-10%, Reduced calorie diet, Exercise 5-7 times/week Overweight/Obesity:: Patient communicates acknowledgment Hypertension Recommendations Include:: BP <130/80 if diabetic, DASH dietary guidelines, Decrease/maintain normal body weight, Moderation of ETOH Hypertension:: Patient communicates acknowledgment Diabetes Patient Diabetes Risk Factors Are:: Elevated blood sugars Recommendations Include:: Maintain fasting blood sugars 70-110 md/dL, Maintain HgbA1c of 6% or less, Monitor blood sugar as prescribed, Diabetic dietary guidelines, Decrease/maintain body weight Diabetes:: Patient communicates acknowledgment Metabolic Syndrome Patient Metabolic Syndrome Risk Factors Are [3 of 5]:: Fasting blood sugar > 100 mg/dL, Waist circumference > 35 [female] or 40 [male], High triglyceride >150, Hypertension, Low HDL <40 [male] or < 50 [female] Recommendations Include:: Reinforce compliance to risk factor modifications, Patient is diabetic, Encouraged follow-up with Primary Care Physician Metabolic Syndrome Response Code:: Patient communicates acknowledgment Sedentary Patient Sedentary Risk Factors Are:: Lack of regular exercise Recommendations Include:: Aerobic exercise 5-7 times/week for 20-30 minutes continuously, Benefits of regular exercise, Discussed home walking program, Monitored Outpatient Cardiac Rehab Sedentary Response Code:: Patient communicates acknowledgment Stress Recommendations Include:: Identification of stressors, and assessment of coping skills, Stress management techniques Stress Response Code:: Patient communicates acknowledgment
[2017-12-14] MEDS: 0.9% Normal Saline 1,000 ML 100 ML IV (10:25)
[2017-12-14] MEDS: buPROPion (SR) 150 MG Tablet.SA PO ×2 (10:26→21:31)
[2017-12-14 10:56] LABS: ACT Activated Clotting Time 224 sec (74-137)
[2017-12-14 10:56] LABS: ACT Activated Clotting Time 202 sec (74-137)
--- NOTE | 2017-12-14 11:06 | CL.I_ITS ---
Patient Name: WILDER BALDERAS Study Date: 12/14/2017 Performing: Alisa Martinez MD Ht: 64.17 inches 163 cm : 1970 Wt: 185.19 lbs 84 kg Age: 47 Gender: female BSA: 1.9 PROCEDURE(S) PERFORMED [id number] W OR WO PTCA, SINGLE CORONARY ARTERY CLINICAL PROFILE AND CO-MORBIDITIES Indications: ACS <= 24 hrs Heart Failure: None Stress/Imaging Stress/Image Study Performed: No Angina Classification Anginal Classification w/in 2 Weeks: CCS III CAD Presentations: Unstable angina. CONCLUSIONS Successful PTCA/SUHAIL ostial RCA using Resolute Integrity 2.5x8 mm, post-dilated using 2.75 mm balloon RECOMMENDATIONS ASA Indefinitley Plavix for at least 12 months INTERVENTION INFORMATION LESION SITE: RCA (Ostial) Lesion Complexity: Non-High/Non-C, culprit lesion: Yes Pre Stenosis: 95 % Pre intervention YASIR flow: 3 PROCEDURE: Drug Eluting Stent with pre and post dilatation Post Stenosis: 0 % Post intervention YASIR flow: 3 Lesion Devices: Cordis 6 Fr JR4 100cm Guide Catheter Terumo .014 Runthrough Extra Floppy 180cm straight [employer] EMERGE MR 2.50x12 BALLOON [employer] Resolute RX SUHAIL 2.5x08 [employer] [place] EMERGE MR 2.75x08 [place]ALL[place] COMPLICATIONS No Complications PROCEDURE MEDICATIONS Fentanyl 50 mcg IV Versed 1 mg IV Versed 1 mg IV Oxygen: 2 L/min via nasal cannula Heparin diluted in 23cc Heparinized saline. Patient given 10cc IA of this solution. 12/14/2017 08:04: 36 Heparin 7000 unit(s) IV 12/14/2017 08:55:37 Heparin 2000 unit(s) IV 12/14/2017 09:09:11 Heparin 2000 unit(s) IV 12/14/2017 09:31:12 Nitro 200 mcg IC 12/14/2017 09:05:31 Nitro 200 mcg IC 12/14/2017 09:05:31 Verapamil 2.5mg, Ntg 100mcgs, 2000 units of Heparin diluted in 23cc Heparinized saline. Patient give n 10cc IA of this solution. 12/14/2017 08:04:36 IV Bolus: .9 NaCl 250 ml total 12/14/2017 08:08:07 IV Bolus: .9 NaCl 500 ml total 12/14/2017 09:05:57 IV Fluids: .9 NaCl IV started @ 150 ml/hr 12/14/2017 08:23:12 SUMMARY OF HEMODYNAMIC DATA Time AIR REST ECG 07:48:31 AO 107/65 (83) SA 08:06:18 AO 91/58 (73) 08:08:15 LV 135/-2, 5 08:25:57 LV 118/0, 8 08:26:03 LV 144/-12, 10 08:27:18 LVp 149/-12, 11 08:27:23 AOp 152/58 (92) 08:27:28 AO 163/78 (109) 09:03:22 Signed By Alisa Martinez MD On 12/14/2017 11:06:03 AM Alisa Martinez MD
[2017-12-14 11:45] LABS: Bedside Glucose 233 mg/dL (70-110)
--- NOTE | 2017-12-14 13:22 | PCM.PN.HOSP ---
Patient Problems: Active and Suspected Problems (Last Updated 12/13/17 @ 11:21 by Boom Hansen DO) Chest pain (Acute) Subjective: Some wrist pain, post cath. Vitals/I&O's: Vital Signs Temp Pulse Resp BP Pulse Ox 36.7 C 70 24 H 140/69 H 99 12/14/17 12:00 12/14/17 12:00 12/14/17 12:00 12/14/17 12:00 12/14/17 12:00 Oxygen Flow Rate (L/min) 2 Oxygen Delivery Method Room Air Weight: 83.7 kg Body Mass Index (BMI) 31.6 Intake and Output for Last 24 Hours 12/12/17 12/13/17 12/14/17 23:59 23:59 23:59 Intake Total 720 / 720 250 / 250 Balance 720 / 720 250 / 250 General: Alert, No apparent distress HEENT: Atraumatic, Normocephalic Oral: Moist Mucosa, No Gingival or Mucosal Lesions/ Ulcerations Neck: No Nodes, Thyroid Normal Size and Texture Lungs: Clear to auscultation, Normal air movement, No rhonchi, No wheeze Cardiovascular: Regular rate, Regular Rhythm, Normal S1, Normal S2, No murmurs Abdomen: Bowel Sounds Present, Soft, Non Tender, Non-Distended, No Hepato-splenomegaly Extremities: No edema, No Calf Tenderness Skin: No rashes, No breakdown Psych/Mental Status: Normal Affect, Appropriate Laboratory Results 12/13/17 13:38: Urine Test Negative 12/13/17 14:25: Troponin I 0.045 12/13/17 15:46: POC Glucose 368 H 12/13/17 22:32: POC Glucose 265 H 12/14/17 06:12: Triglycerides 161, Cholesterol 149, LDL Cholesterol 90, VLDL Cholesterol 32, HDL Cholesterol 27 L 12/14/17 06:12: WBC 8.4, RBC 4.53, Hgb 13.5, Hct 39.5, MCV 87.2, MCH 29.8, MCHC 34.2, RDW 12.9, RDW Differential 39.9, Plt Count 171, MPV 12.2 H 12/14/17 06:12: PT 13.5, INR 1.0, APTT 27.3 12/14/17 06:12: Sodium 137, Potassium 3.9, Chloride 106, Carbon Dioxide 23.0, Anion Gap 8, BUN 12, Creatinine 0.56, Estim Creat Clear Calc 107.24, Est GFR (MDRD) Af Amer 149, Est GFR (MDRD) Non-Af 123, BUN/Creatinine Ratio 21.5 H, Glucose 274 H, Calcium 8.4 L 12/14/17 07:03: POC Glucose 271 H 12/14/17 09:01: Activated Clotting Time 224 H 12/14/17 09:27: Activated Clotting Time 202 H 12/14/17 11:35: POC Glucose 233 H Current Medications Acetaminophen (Tylenol) 650 mg PO Q6H PRN PRN PRN Reason: Mild Pain (1-3)/Temp > 100.7 F Aspirin (Ecotrin) 81 mg PO DAILY@0800 [facility] Last Admin: 12/14/17 05:18 Dose: 81 mg Atropine Sulfate () 0.5 mg IV UD PRN PRN Reason: HR <50 bpm Bupropion HCl (Wellbutrin Sr (150mg Tablets)) 150 mg PO BID [facility] Last Admin: 12/14/17 10:26 Dose: 150 mg Clopidogrel Bisulfate (Plavix) 75 mg PO DAILY [facility] Last Admin: 12/14/17 07:31 Dose: 75 mg Dextrose (D50w Syringe) 0 gm IV X1 PRN; Protocol PRN Reason: Hypoglycemia Enoxaparin Sodium (Lovenox) 40 mg SC DAILY@1000 [facility] Last Admin: 12/14/17 10:26 Dose: Not Given Glucagon () 1 mg IM .X1 PRN PRN Reason: Hypoglycemia Sodium Chloride () 1,000 mls @ 100 mls/hr IV .Q10H [facility] Stop: 12/14/17 19:27 Last Admin: 12/14/17 10:25 Dose: 100 mls/hr Insulin Human Lispro (Humalog Kwikpen (Bkc)) 0 unit SQ TIDAC [facility]; Protocol Last Admin: 12/14/17 11:39 Dose: 3 u Lisinopril (Zestril) 2.5 mg PO DAILY [facility] Last Admin: 12/14/17 07:31 Dose: 2.5 mg Magnesium Hydroxide (Milk Of Magnesia) 30 ml PO DAILY PRN PRN Reason: Constipation Metoprolol Tartrate (Lopressor (Beta Chinyere)) 25 mg PO BID [facility] Last Admin: 12/14/17 07:31 Dose: 25 mg Nitroglycerin (Nitrostat) 0.4 mg SUBLINGUAL Q5M PRN PRN Reason: CHEST PAIN Nystatin (Mycostatin Powder) 1 applic TOPICAL TID [facility]; Protocol Last Admin: 12/14/17 05:16 Dose: Not Given Ondansetron HCl (Zofran) 4 mg IV Q8H PRN PRN PRN Reason: NAUSEA Oxycodone HCl (Oxyir) 5 - 10 mg PO Q4H PRN PRN PRN Reason: MOD-SEVERE PAIN (4-10/10) Sodium Chloride () 5 - 30 ml IV UD PRN PRN Reason: SALINE FLUSH Sodium Chloride () 500 ml IV BOLUS PRN PRN Reason: VASO-VAGAL PROTOCOL Medical Necessity - Tobacco Use Smoking Status: Heavy Smoker (>10/day) Tobacco Use: Cigarettes Assessment/Plan All Active Problems (Last Updated 12/13/17 @ 11:21 by Boom Hansen DO) Chest pain (Acute) 1. unstable angina YASIR 2 KATE 72 s/p PCI to RCA check an additional troponin, if negative, then stress echocardiogram on DAPT, high intensity statin 2. DM2 uncontrolled check an A1c SSI for now resume glimepiride 3. Depression: continue Buspar 4. HTN stable, continue lisinopril 5. DVT proph: LMWH. Code Visit Inpatient E&M: 75486 Subs Hosp L2
--- NOTE | 2017-12-14 13:34 | PN_ITS ---
Patient Problems: Active and Suspected Problems (Last Updated 12/13/17 @ 11:21 by Boom Hansen DO) Chest pain (Acute) Subjective: Some wrist pain, post cath. Vitals/I&O's: Vital Signs Temp Pulse Resp BP Pulse Ox 36.7 C 70 24 H 140/69 H 99 12/14/17 12:00 12/14/17 12:00 12/14/17 12:00 12/14/17 12:00 12/14/17 12:00 Oxygen Flow Rate (L/min) 2 Oxygen Delivery Method Room Air Weight: 83.7 kg Body Mass Index (BMI) 31.6 Intake and Output for Last 24 Hours 12/12/17 12/13/17 12/14/17 23:59 23:59 23:59 Intake Total 720 / 720 250 / 250 Balance 720 / 720 250 / 250 General: Alert, No apparent distress HEENT: Atraumatic, Normocephalic Oral: Moist Mucosa, No Gingival or Mucosal Lesions/ Ulcerations Neck: No Nodes, Thyroid Normal Size and Texture Lungs: Clear to auscultation, Normal air movement, No rhonchi, No wheeze Cardiovascular: Regular rate, Regular Rhythm, Normal S1, Normal S2, No murmurs Abdomen: Bowel Sounds Present, Soft, Non Tender, Non-Distended, No Hepato- splenomegaly Extremities: No edema, No Calf Tenderness Skin: No rashes, No breakdown Psych/Mental Status: Normal Affect, Appropriate Laboratory Results 12/13/17 13:38: Urine Test Negative 12/13/17 14:25: Troponin I 0.045 12/13/17 15:46: POC Glucose 368 H 12/13/17 22:32: POC Glucose 265 H 12/14/17 06:12: Triglycerides 161, Cholesterol 149, LDL Cholesterol 90, VLDL Cholesterol 32, HDL Cholesterol 27 L 12/14/17 06:12: WBC 8.4, RBC 4.53, Hgb 13.5, Hct 39.5, MCV 87.2, MCH 29.8, MCHC 34.2, RDW 12.9, RDW Differential 39.9, Plt Count 171, MPV 12.2 H 12/14/17 06:12: PT 13.5, INR 1.0, APTT 27.3 12/14/17 06:12: Sodium 137, Potassium 3.9, Chloride 106, Carbon Dioxide 23.0, Anion Gap 8, BUN 12, Creatinine 0.56, Estim Creat Clear Calc 107.24, Est GFR (MDRD) Af Amer 149, Est GFR (MDRD) Non-Af 123, BUN/Creatinine Ratio 21.5 H, Glucose 274 H, Calcium 8.4 L 12/14/17 07:03: POC Glucose 271 H 12/14/17 09:01: Activated Clotting Time 224 H 12/14/17 09:27: Activated Clotting Time 202 H 12/14/17 11:35: POC Glucose 233 H Current Medications Acetaminophen (Tylenol) 650 mg PO Q6H PRN PRN PRN Reason: Mild Pain (1-3)/Temp > 100.7 F Aspirin (Ecotrin) 81 mg PO DAILY@0800 [facility] Last Admin: 12/14/17 05:18 Dose: 81 mg Atropine Sulfate () 0.5 mg IV UD PRN PRN Reason: HR <50 bpm Bupropion HCl (Wellbutrin Sr (150mg Tablets)) 150 mg PO BID [facility] Last Admin: 12/14/17 10:26 Dose: 150 mg Clopidogrel Bisulfate (Plavix) 75 mg PO DAILY [facility] Last Admin: 12/14/17 07:31 Dose: 75 mg Dextrose (D50w Syringe) 0 gm IV X1 PRN; Protocol PRN Reason: Hypoglycemia Enoxaparin Sodium (Lovenox) 40 mg SC DAILY@1000 [facility] Last Admin: 12/14/17 10:26 Dose: Not Given Glucagon () 1 mg IM .X1 PRN PRN Reason: Hypoglycemia Sodium Chloride () 1,000 mls @ 100 mls/hr IV .Q10H [facility] Stop: 12/14/17 19:27 Last Admin: 12/14/17 10:25 Dose: 100 mls/hr Insulin Human Lispro (Humalog Kwikpen (Bkc)) 0 unit SQ TIDAC [facility]; Protocol Last Admin: 12/14/17 11:39 Dose: 3 u Lisinopril (Zestril) 2.5 mg PO DAILY [facility] Last Admin: 12/14/17 07:31 Dose: 2.5 mg Magnesium Hydroxide (Milk Of Magnesia) 30 ml PO DAILY PRN PRN Reason: Constipation Metoprolol Tartrate (Lopressor (Beta Chinyere)) 25 mg PO BID [facility] Last Admin: 12/14/17 07:31 Dose: 25 mg Nitroglycerin (Nitrostat) 0.4 mg SUBLINGUAL Q5M PRN PRN Reason: CHEST PAIN Nystatin (Mycostatin Powder) 1 applic TOPICAL TID [facility]; Protocol Last Admin: 12/14/17 05:16 Dose: Not Given Ondansetron HCl (Zofran) 4 mg IV Q8H PRN PRN PRN Reason: NAUSEA Oxycodone HCl (Oxyir) 5 - 10 mg PO Q4H PRN PRN PRN Reason: MOD-SEVERE PAIN (4-10/10) Sodium Chloride () 5 - 30 ml IV UD PRN PRN Reason: SALINE FLUSH Sodium Chloride () 500 ml IV BOLUS PRN PRN Reason: VASO-VAGAL PROTOCOL Medical Necessity - Tobacco Use Smoking Status: Heavy Smoker (>10/day) Tobacco Use: Cigarettes Assessment/Plan All Active Problems (Last Updated 12/13/17 @ 11:21 by Boom Hansen DO) Chest pain (Acute) 1. unstable angina * YASIR 2 * KATE 72 * s/p PCI to RCA check an additional troponin, if negative, then stress echocardiogram * on DAPT, high intensity statin 2. DM2 * uncontrolled * check an A1c * SSI for now * resume glimepiride 3. Depression: * continue Buspar 4. HTN * stable, continue lisinopril 5. DVT proph: LMWH. Code Visit Inpatient E&M: 20591 Subs Hosp L2
[2017-12-14] MEDS: Glimepiride 4 MG Tablet PO (14:13)
[2017-12-14 16:25] LABS: Bedside Glucose 240 mg/dL (70-110)
[2017-12-14] MEDS: amLODIPine 10 MG Tablet PO (18:05)
[2017-12-14] MEDS: oxyCODONE 5 MG Tablet PO (18:08)
--- NOTE | 2017-12-14 18:12 | NURSING ---
dr garcia here aware of elevated bp orders received, also updated on rt radial cath site tr band remains intact
[2017-12-14] MEDS: Ondansetron 4 MG/2 ML Vial IV (19:21)
[2017-12-14] MEDS: Atorvastatin Calcium 80 MG Tablet PO (21:31)
[2017-12-15] VITALS (16 sets, daily range): BP systolic 114–158; BP diastolic 46–79; PULSE 63–75; RESP 13–22; TEMP 36.3–36.6; O2SAT 92–98
[2017-12-15] MEDS: 0.9% NaCl Peripheral Flush Adult/Peds IV (04:19)
[2017-12-15 04:34] LABS: Hematocrit 38.1 % (37-47); Hemoglobin 12.6 g/dl (12.0-15.0); Mean Corp Hgb Conc 33.1 g/gl (32-36); Mean Corpuscular Volume 87.8 fL (81-99); Mean Platelet Vol. 11.3 fl (6.2-12.0); Platelet Count 161 K/mm3 (150-450); RBC Distribution Width CV 12.9 % (11.6-14.6); RBC Distribution Width SD 41.7 fl (35.1-43.9); Red Blood Count 4.34 M/mm3 (4.2-5.4); White Blood Count 8.3 K/mm3 (4.4-11.0)
[2017-12-15 04:44] LABS: Scan Indicated on CBC? Y/N NO
[2017-12-15 04:54] LABS: Anion Gap 7 (5-15); BUN 10 mg/dL (7-18); BUN/Creat Ratio 19.9 RATIO (10-20); Calcium,Total 7.9 mg/dL (8.5-10.1); Chloride 109 mmol/L (98-107); EST Glomerular Filtration Rate 139 mL/min (>60); Est Glom Filt Rate - Afr Amer 168 mL/min (>60); Estimated Creatinine Clearance 120.11 ml/min; Glucose 193 mg/dL (74-106); Sodium Level 139 mmol/L (136-145)
[2017-12-15 06:41] LABS: Bedside Glucose 206 mg/dL (70-110)
--- NOTE | 2017-12-15 07:25 | PN.CARD_ITS ---
Subjectve: Patient seen and evaluated. Appears to be doing well. Had uneventful night. Objective: Vital Signs Temp Pulse Resp BP Pulse Ox 97.4 F L 68 14 138/69 H 98 12/15/17 04:00 12/15/17 07:00 12/15/17 07:00 12/15/17 07:00 12/15/17 07:00 Oxygen Flow Rate (L/min) 2 Oxygen Delivery Method Room Air Weight: 184 lb 8.43 oz Body Mass Index (BMI) 31.6 Intake and Output for Last 24 Hours 12/13/17 12/14/17 12/15/17 23:59 23:59 23:59 Intake Total 720 / 720 1563 / 1563 542 / 542 Output Total 550 / 550 500 / 500 Balance 720 / 720 1013 / 1013 42 / 42 General: Awake, Alert, Oriented x 3 HEENT: PERRL, EOMI, Sclera Non Icteric Neck: Supple, Good ROM, No Lymph Node Enlargement Lungs: Clear to auscultation Cardiovascular: Regular Rhythm, Normal S1, Normal S2, No Murmurs, No Rubs, No Gallops Vascular: No Carotid Bruits, Normal Femoral Pulses, Normal Radial Pulses, Normal Dorsalis Pedal Pulse, Normal Posterior Tibial Pulses Abdomen: Bowel Sounds Present, Soft, Non Tender, No HSM, No Organomegaly Extremities: No Cyanosis, No Clubbing, No edema Neurological: No Focal Motor or Sensory Deficit 12/14/17 06:12: Triglycerides 161, Cholesterol 149, LDL Cholesterol 90, VLDL Cholesterol 32, HDL Cholesterol 27 L 12/15/17 04:25: WBC 8.3, RBC 4.34, Hgb 12.6, Hct 38.1, MCV 87.8, MCH 29.0, MCHC 33.1, RDW 12.9, RDW Differential 41.7, Plt Count 161, MPV 11.3 12/15/17 04:25: Sodium 139, Potassium 4.0, Chloride 109 H, Carbon Dioxide 23.0, Anion Gap 7, BUN 10, Creatinine 0.50 L, Est GFR (MDRD) Af Amer 168, Est GFR (MDRD) Non-Af 139, BUN/Creatinine Ratio 19.9, Glucose 193 H, Calcium 7.9 L Rhythm: EKG: ECHO: Stress Test: Cardiac Cath: PCI: CT Surgery: Holter monitor: EPS: PPM: CXR: Chest CT Scan: Medical Necessity - Tobacco Use Smoking Status: Heavy Smoker (>10/day) Tobacco Use: Cigarettes Assessment/Plan 1. Chest pain * Patient presented with chest and arm pain which was somewhat concerning for angina. * She underwent a cardiac catheterization which demonstrated the following: Normal left main coronary artery. Left anterior descending artery with no significant disease. Left circumflex artery which is codominant with no significant stenosis. First obtuse marginal branch with proximal 50% stenosis. Codominant right coronary artery with ostial 95% stenosis. Preserved left ventricular systolic function. Based on the above angiographic findings the patient underwent a successful angioplasty of the right coronary artery. EKG this morning is unremarkable. * 2. Hypertension * Pressure appears to be under decent control and will continue current medical therapy as noted above. * Will recommend increasing her lisinopril to 20 mg a day. * Thank you for allowing me to participate in the care of your patient. Please don't hesitate to call if any issues arise * Will recommend discharge today for outpatient follow-up in my office in 2-4 weeks.
[2017-12-15] MEDS: Aspirin E.C. 81 MG Tablet PO (08:13)
[2017-12-15] MEDS: Glimepiride 4 MG Tablet PO (08:13)
[2017-12-15] MEDS: Insulin Lispro 100 UNIT/ML INSULN.PEN SQ (08:13)
[2017-12-15 08:21] LABS: Bedside Glucose 219 mg/dL (70-110)
--- NOTE | 2017-12-15 09:10 | PCM.DC ---
- Discharge Diagnoses Current Active Problems: Current Active and Chronic Problems (Last Updated 12/13/17 @ 11:21 by Boom Hansen DO) Chest pain (Acute) You will use the following diet at home:: Calorie/Carbohydrate Controlled (specify 1200, 1400, etc) - 1800 kcal/day Your food should be the consistency of: Regular Your liquids should be the consistency of: Regular/Thin Discharge Activity: Return to Normal Activity Return to work on:: 12/18/17 May resume sexual activity in: No Restrictions Call your doctor if you observe: Fever of 101 or Higher, Shortness of breath, Chest pain Instructions: ED Chest Pain NonCardiac, What Is Angina?, What Is Type 2 Diabetes?, How to Check Your Blood Sugar, Oral Medications for Type 2 Diabetes, Eating Out When You Have Diabetes, Diabetes: Keeping Feet Healthy, Diabetes: Sick-Day Plan, Recognizing a Heart Attack or Angina, Diabetes: Getting Started with Exercise, Discharge Instructions for Angina, Understanding Type 2 Diabetes, Warning Signs of a Heart Attack Allergies/Adverse Reactions: Allergies Penicillins [PCN] Allergy (Verified 12/13/17 08:28) Other INTENSIVIES WHAT IT IS SUPPOSED TO BE TREATING Medications to take at Discharge Bupropion HCl [Bupropion HCl Sr] 150 mg PO BID 12/13/17 Fluoxetine HCl 60 mg PO DAILY 12/13/17 Glimepiride [Amaryl] 4 mg PO DAILY 12/13/17 Aspirin E.C. [Ecotrin] 81 mg PO DAILY@0800 tablet 12/15/17 Atorvastatin Calcium [Lipitor] 80 mg PO QHS #30 tablet 12/15/17 Clopidogrel Bisulfate [Plavix] 75 mg PO DAILY #30 tablet 12/15/17 Lancets/Blood Glucose Strips [Fora [id number] Strp-Lnct] 1 each MC DAILY #100 combo..pkg 12/15/17 Lisinopril [Zestril] 20 mg PO DAILY #30 tablet 12/15/17 Metoprolol Tartrate [Lopressor (beta kiel)] 25 mg PO BID #60 tablet 12/15/17 Sitagliptin Phosphate [Januvia] 100 mg PO DAILY #30 tablet 12/15/17 The following prescriptions were given: Atorvastatin Calcium [Lipitor] 80 mg PO QHS #30 tablet Clopidogrel Bisulfate [Plavix] 75 mg PO DAILY #30 tablet Lancets/Blood Glucose Strips [Fora [id number] [facility]-Lnct] 1 each MC DAILY #100 combo..pkg Lisinopril [Zestril] 20 mg PO DAILY #30 tablet Sitagliptin Phosphate [Januvia] 100 mg PO DAILY #30 tablet Metoprolol Tartrate [Lopressor (beta kiel)] 25 mg PO BID #60 tablet Primary Care Physician: Panfilo Mirza MD [Primary Care Provider] - Within 2 Weeks Test Results: Test results from this visit will be discussed in further detail at your follow-up appointment, if applicable. Please Follow Up With: Aditya Dominguez MD When: 2-4 weeks Proposed Discharge Date: 12/15/17
--- NOTE | 2017-12-15 09:13 | DCINST_ITS ---
- Discharge Diagnoses Current Active Problems: Current Active and Chronic Problems (Last Updated 12/13/17 @ 11:21 by Boom Hansen DO) Chest pain (Acute) You will use the following diet at home:: Calorie/Carbohydrate Controlled (specify 1200, 1400, etc) - 1800 kcal/day Your food should be the consistency of: Regular Your liquids should be the consistency of: Regular/Thin Discharge Activity: Return to Normal Activity Return to work on:: 12/18/17 May resume sexual activity in: No Restrictions Call your doctor if you observe: Fever of 101 or Higher, Shortness of breath, Chest pain Instructions: ED Chest Pain NonCardiac, What Is Angina?, What Is Type 2 Diabetes?, How to Check Your Blood Sugar, Oral Medications for Type 2 Diabetes, Eating Out When You Have Diabetes, Diabetes: Keeping Feet Healthy, Diabetes: Sick-Day Plan, Recognizing a Heart Attack or Angina, Diabetes: Getting Started with Exercise, Discharge Instructions for Angina, Understanding Type 2 Diabetes, Warning Signs of a Heart Attack Allergies/Adverse Reactions: Allergies Penicillins [PCN] Allergy (Verified 12/13/17 08:28) Other INTENSIVIES WHAT IT IS SUPPOSED TO BE TREATING Medications to take at Discharge Bupropion HCl [Bupropion HCl Sr] 150 mg PO BID 12/13/17 Fluoxetine HCl 60 mg PO DAILY 12/13/17 Glimepiride [Amaryl] 4 mg PO DAILY 12/13/17 Aspirin E.C. [Ecotrin] 81 mg PO DAILY@0800 tablet 12/15/17 Atorvastatin Calcium [Lipitor] 80 mg PO QHS #30 tablet 12/15/17 Clopidogrel Bisulfate [Plavix] 75 mg PO DAILY #30 tablet 12/15/17 Lancets/Blood Glucose Strips [Fora [id number] Strp-Lnct] 1 each MC DAILY #100 combo..pkg 12/15/17 Lisinopril [Zestril] 20 mg PO DAILY #30 tablet 12/15/17 Metoprolol Tartrate [Lopressor (beta kiel)] 25 mg PO BID #60 tablet 12/15/17 Sitagliptin Phosphate [Januvia] 100 mg PO DAILY #30 tablet 12/15/17 The following prescriptions were given: Atorvastatin Calcium [Lipitor] 80 mg PO QHS #30 tablet Clopidogrel Bisulfate [Plavix] 75 mg PO DAILY #30 tablet Lancets/Blood Glucose Strips [Fora [id number] [facility]-Lnct] 1 each MC DAILY #100 combo..pkg Lisinopril [Zestril] 20 mg PO DAILY #30 tablet Sitagliptin Phosphate [Januvia] 100 mg PO DAILY #30 tablet Metoprolol Tartrate [Lopressor (beta kiel)] 25 mg PO BID #60 tablet Primary Care Physician: Panfilo Mirza MD [Primary Care Provider] - Within 2 Weeks Test Results: Test results from this visit will be discussed in further detail at your follow- up appointment, if applicable. Please Follow Up With: Aditya Dominguez MD When: 2-4 weeks Proposed Discharge Date: 12/15/17
--- NOTE | 2017-12-15 09:13 | PCM.DC.SUM ---
Discharge Date and Diagnosis - Problem List Patient Problems: Active and Suspected Problems (Last Updated 12/13/17 @ 11:21 by Boom Hansen DO) Stented coronary artery (Acute) CAD (coronary artery disease) (Acute) Unstable angina (Acute) Date of Admission: 12/13/17 Date of Discharge: 12/15/17 - Primary Discharge Diagnosis Active and Suspected Problems (Last Updated 12/13/17 @ 11:21 by Boom Hansen DO) Stented coronary artery (Acute) CAD (coronary artery disease) (Acute) Unstable angina (Acute) 1. unstable angina YASIR 2 KATE 72 s/p PCI to RCA check an additional troponin, if negative, then stress echocardiogram on DAPT, high intensity statin 2. DM2 uncontrolled check an A1c SSI for now resume glimepiride add Januvia GI upset with metformin patient will need to check MBS daily states she needs a refill on testing strips and lancets. 3. Depression: continue Buspar 4. HTN stable, continue lisinopril - Secondary Discharge Diagnosis Chronic Problems (Last Updated 12/13/17 @ 11:21 by Boom Hansen DO) DM2 (diabetes mellitus, type 2) (Chronic) Hospital Course and Treatment Imaging Results: Clinical Impression(s) from Imaging Studies Chest X-Ray 12/13/17 08:35 IMPRESSION: Scattered calcified granulomas. The lungs are otherwise clear. Questionable calcified gallstone. Electronically Signed: Lex Haji MD at 8:49 EDT Tel [phone], Service support , Aditya Dominguez MD--Cardiology. Operations: None Procedures: Cardiac catheterization Summary of Care Provided: The patient is a 47 year old F is with chest pain while at work. Patient's troponins remain normal but did go up slightly so patient was taken to left heart catheterization on December 14. Patient underwent via radial approach, left heart catheterization and was noted to have 95% stenosis of the right coronary artery. Patient received a drug-eluting stent. Patient is on dual antiplatelet therapy with Plavix and aspirin plus a high intensity statin with atorvastatin. Patient also started on metoprolol as well as lisinopril. Patient does have risk factors, including smoking, which she has been advised to quit. Also diabetes. Diabetes has been uncontrolled with blood sugars in the 200s this is with her being on her glimepiride, which she takes at home. Patient will be started on Januvia to help with diabetes control. Patient has tried metformin in the past but had GI upset with that. [] Patient Problems: Active and Suspected Problems (Last Updated 12/13/17 @ 11:21 by Boom Hansen DO) Stented coronary artery (Acute) CAD (coronary artery disease) (Acute) Unstable angina (Acute) - Physical Exam General: Alert, Cooperative, No apparent distress HEENT: Atraumatic, Normocephalic Oral: Moist Mucosa, No Gingival or Mucosal Lesions/ Ulcerations Extremities: No clubbing, No cyanosis, - - right fingers with normal cap refil. Neurological: - - right fingers with normal sensation. Vital Signs Temp Pulse Resp BP Pulse Ox 36.3 C L 70 16 158/60 H 96 12/15/17 08:00 12/15/17 08:00 12/15/17 08:00 12/15/17 08:00 12/15/17 08:00 Oxygen Flow Rate (L/min) 2 Oxygen Delivery Method Room Air Weight: 83.7 kg Body Mass Index (BMI) 31.6 Intake and Output for Last 24 Hours 12/13/17 12/14/17 12/15/17 23:59 23:59 23:59 Intake Total 720 / 720 1563 / 1563 542 / 542 Output Total 550 / 550 500 / 500 Balance 720 / 720 1013 / 1013 42 / 42 Laboratory Tests Past 24 Hrs 12/14/17 12/14/17 12/15/17 09:01 09:27 04:25 WBC 8.3 RBC 4.34 Hgb 12.6 Hct 38.1 MCV 87.8 MCH 29.0 MCHC 33.1 RDW 12.9 RDW Differential 41.7 Plt Count 161 MPV 11.3 Activated Clotting Time 224 H 202 H Sodium Potassium Chloride Carbon Dioxide Anion Gap BUN Creatinine Estim Creat Clear Calc Est GFR (MDRD) Af Amer Est GFR (MDRD) Non-Af BUN/Creatinine Ratio Glucose Calcium 12/15/17 04:25 WBC RBC Hgb Hct MCV MCH MCHC RDW RDW Differential Plt Count MPV Activated Clotting Time Sodium 139 Potassium 4.0 Chloride 109 H Carbon Dioxide 23.0 Anion Gap 7 BUN 10 Creatinine 0.50 L Estim Creat Clear Calc 120.11 Est GFR (MDRD) Af Amer 168 Est GFR (MDRD) Non-Af 139 BUN/Creatinine Ratio 19.9 Glucose 193 H Calcium 7.9 L POC Glucose 12/15/17 12/15/17 12/14/17 08:10 06:32 16:22 POC Glucose 219 H 206 H 240 H 12/14/17 11:35 POC Glucose 233 H Discharge Diet: Low fat/ Low Cholesterol, 1800 Calorie Control Diet Discharge Activity: Return to Normal Activity Return to work on:: 12/18/17 May resume sexual activity in: No Restrictions Call your doctor if you observe: Fever of 101 or Higher, Shortness of breath, Chest pain Home Medications: Medications to take at Discharge Bupropion HCl [Bupropion HCl Sr] 150 mg PO BID 12/13/17 Fluoxetine HCl 60 mg PO DAILY 12/13/17 Glimepiride [Amaryl] 4 mg PO DAILY 12/13/17 Aspirin E.C. [Ecotrin] 81 mg PO DAILY@0800 tablet 12/15/17 Atorvastatin Calcium [Lipitor] 80 mg PO QHS #30 tablet 12/15/17 Clopidogrel Bisulfate [Plavix] 75 mg PO DAILY #30 tablet 12/15/17 Lancets/Blood Glucose Strips [Fora [id number] Strp-Lnct] 1 each MC DAILY #100 combo..pkg 12/15/17 Lisinopril [Zestril] 20 mg PO DAILY #30 tablet 12/15/17 Metoprolol Tartrate [Lopressor (beta kiel)] 25 mg PO BID #60 tablet 12/15/17 Sitagliptin Phosphate [Januvia] 100 mg PO DAILY #30 tablet 12/15/17 Following Prescrptions Were Given to Patient: Atorvastatin Calcium [Lipitor] 80 mg PO QHS #30 tablet Clopidogrel Bisulfate [Plavix] 75 mg PO DAILY #30 tablet Lancets/Blood Glucose Strips [Fora [id number] Strp-Lnct] 1 each MC DAILY #100 combo..pkg Lisinopril [Zestril] 20 mg PO DAILY #30 tablet Sitagliptin Phosphate [Januvia] 100 mg PO DAILY #30 tablet Metoprolol Tartrate [Lopressor (beta kiel)] 25 mg PO BID #60 tablet Primary Care Physician: Panfilo Mirza MD [Primary Care Provider] - Within 2 Weeks Please Follow Up With: Aditya Dominguez MD When: 2-4 weeks Patient Instructions: What Is Angina?, What Is Type 2 Diabetes?, How to Check Your Blood Sugar, Oral Medications for Type 2 Diabetes, Eating Out When You Have Diabetes, Diabetes: Keeping Feet Healthy, Diabetes: Sick-Day Plan, Recognizing a Heart Attack or Angina, Diabetes: Getting Started with Exercise, Discharge Instructions for Angina, Understanding Type 2 Diabetes, Warning Signs of a Heart Attack, ED Chest Pain NonCardiac Disposition: Home Minutes spent on discharge:: 35 Patient Condition:: Good Medical Necessity - Tobacco Use Smoking Status: Heavy Smoker (>10/day) Tobacco Use: Cigarettes Meaningful Use Info Meaningful Use Diagnoses (Choose all that apply): None applicable Code Visit Inpatient E&M: 75759 Disch Hosp
--- NOTE | 2017-12-15 09:17 | DS.PCM_ITS ---
Discharge Date and Diagnosis - Problem List Patient Problems: Active and Suspected Problems (Last Updated 12/13/17 @ 11:21 by Boom Hansen DO) Stented coronary artery (Acute) CAD (coronary artery disease) (Acute) Unstable angina (Acute) Date of Admission: 12/13/17 Date of Discharge: 12/15/17 - Primary Discharge Diagnosis Active and Suspected Problems (Last Updated 12/13/17 @ 11:21 by Boom Hansen DO) Stented coronary artery (Acute) CAD (coronary artery disease) (Acute) Unstable angina (Acute) 1. unstable angina * YASIR 2 * KATE 72 * s/p PCI to RCA check an additional troponin, if negative, then stress echocardiogram * on DAPT, high intensity statin 2. DM2 * uncontrolled * check an A1c * SSI for now * resume glimepiride * add Januvia * GI upset with metformin * patient will need to check MBS daily * states she needs a refill on testing strips and lancets. 3. Depression: * continue Buspar 4. HTN * stable, continue lisinopril - Secondary Discharge Diagnosis Chronic Problems (Last Updated 12/13/17 @ 11:21 by Boom Hansen DO) DM2 (diabetes mellitus, type 2) (Chronic) Hospital Course and Treatment Imaging Results: Clinical Impression(s) from Imaging Studies Chest X-Ray 12/13/17 08:35 IMPRESSION: Scattered calcified granulomas. The lungs are otherwise clear. Questionable calcified gallstone. Electronically Signed: Lex Haji MD at 8:49 EDT Tel [phone], Service support , Aditya Dominguez MD--Cardiology. Operations: None Procedures: Cardiac catheterization Summary of Care Provided: The patient is a 47 year old F is with chest pain while at work. Patient's troponins remain normal but did go up slightly so patient was taken to left heart catheterization on December 14. Patient underwent via radial approach, left heart catheterization and was noted to have 95% stenosis of the right coronary artery. Patient received a drug-eluting stent. Patient is on dual antiplatelet therapy with Plavix and aspirin plus a high intensity statin with atorvastatin. Patient also started on metoprolol as well as lisinopril. Patient does have risk factors, including smoking, which she has been advised to quit. Also diabetes. Diabetes has been uncontrolled with blood sugars in the 200s this is with her being on her glimepiride, which she takes at home. Patient will be started on Januvia to help with diabetes control. Patient has tried metformin in the past but had GI upset with that. [] Patient Problems: Active and Suspected Problems (Last Updated 12/13/17 @ 11:21 by Boom Hansen DO) Stented coronary artery (Acute) CAD (coronary artery disease) (Acute) Unstable angina (Acute) - Physical Exam General: Alert, Cooperative, No apparent distress HEENT: Atraumatic, Normocephalic Oral: Moist Mucosa, No Gingival or Mucosal Lesions/ Ulcerations Extremities: No clubbing, No cyanosis, - - right fingers with normal cap refil. Neurological: - - right fingers with normal sensation. Vital Signs Temp Pulse Resp BP Pulse Ox 36.3 C L 70 16 158/60 H 96 12/15/17 08:00 12/15/17 08:00 12/15/17 08:00 12/15/17 08:00 12/15/17 08:00 Oxygen Flow Rate (L/min) 2 Oxygen Delivery Method Room Air Weight: 83.7 kg Body Mass Index (BMI) 31.6 Intake and Output for Last 24 Hours 12/13/17 12/14/17 12/15/17 23:59 23:59 23:59 Intake Total 720 / 720 1563 / 1563 542 / 542 Output Total 550 / 550 500 / 500 Balance 720 / 720 1013 / 1013 42 / 42 Laboratory Tests Past 24 Hrs 12/14/17 12/14/17 12/15/17 09:01 09:27 04:25 WBC 8.3 RBC 4.34 Hgb 12.6 Hct 38.1 MCV 87.8 MCH 29.0 MCHC 33.1 RDW 12.9 RDW Differential 41.7 Plt Count 161 MPV 11.3 Activated Clotting Time 224 H 202 H Sodium Potassium Chloride Carbon Dioxide Anion Gap BUN Creatinine Estim Creat Clear Calc Est GFR (MDRD) Af Amer Est GFR (MDRD) Non-Af BUN/Creatinine Ratio Glucose Calcium 12/15/17 04:25 WBC RBC Hgb Hct MCV MCH MCHC RDW RDW Differential Plt Count MPV Activated Clotting Time Sodium 139 Potassium 4.0 Chloride 109 H Carbon Dioxide 23.0 Anion Gap 7 BUN 10 Creatinine 0.50 L Estim Creat Clear Calc 120.11 Est GFR (MDRD) Af Amer 168 Est GFR (MDRD) Non-Af 139 BUN/Creatinine Ratio 19.9 Glucose 193 H Calcium 7.9 L POC Glucose 12/15/17 12/15/17 12/14/17 08:10 06:32 16:22 POC Glucose 219 H 206 H 240 H 12/14/17 11:35 POC Glucose 233 H Discharge Diet: Low fat/ Low Cholesterol, 1800 Calorie Control Diet Discharge Activity: Return to Normal Activity Return to work on:: 12/18/17 May resume sexual activity in: No Restrictions Call your doctor if you observe: Fever of 101 or Higher, Shortness of breath, Chest pain Home Medications: Medications to take at Discharge Bupropion HCl [Bupropion HCl Sr] 150 mg PO BID 12/13/17 Fluoxetine HCl 60 mg PO DAILY 12/13/17 Glimepiride [Amaryl] 4 mg PO DAILY 12/13/17 Aspirin E.C. [Ecotrin] 81 mg PO DAILY@0800 tablet 12/15/17 Atorvastatin Calcium [Lipitor] 80 mg PO QHS #30 tablet 12/15/17 Clopidogrel Bisulfate [Plavix] 75 mg PO DAILY #30 tablet 12/15/17 Lancets/Blood Glucose Strips [Fora [id number] Strp-Lnct] 1 each MC DAILY #100 combo..pkg 12/15/17 Lisinopril [Zestril] 20 mg PO DAILY #30 tablet 12/15/17 Metoprolol Tartrate [Lopressor (beta kiel)] 25 mg PO BID #60 tablet 12/15/17 Sitagliptin Phosphate [Januvia] 100 mg PO DAILY #30 tablet 12/15/17 Following Prescrptions Were Given to Patient: Atorvastatin Calcium [Lipitor] 80 mg PO QHS #30 tablet Clopidogrel Bisulfate [Plavix] 75 mg PO DAILY #30 tablet Lancets/Blood Glucose Strips [Fora [id number] Strp-Lnct] 1 each MC DAILY #100 combo..pkg Lisinopril [Zestril] 20 mg PO DAILY #30 tablet Sitagliptin Phosphate [Januvia] 100 mg PO DAILY #30 tablet Metoprolol Tartrate [Lopressor (beta kiel)] 25 mg PO BID #60 tablet Primary Care Physician: Panfilo Mirza MD [Primary Care Provider] - Within 2 Weeks Please Follow Up With: Aditya Dominguez MD When: 2-4 weeks Patient Instructions: What Is Angina?, What Is Type 2 Diabetes?, How to Check Your Blood Sugar, Oral Medications for Type 2 Diabetes, Eating Out When You Have Diabetes, Diabetes: Keeping Feet Healthy, Diabetes: Sick-Day Plan, Recognizing a Heart Attack or Angina, Diabetes: Getting Started with Exercise, Discharge Instructions for Angina, Understanding Type 2 Diabetes, Warning Signs of a Heart Attack, ED Chest Pain NonCardiac Disposition: Home Minutes spent on discharge:: 35 Patient Condition:: Good Medical Necessity - Tobacco Use Smoking Status: Heavy Smoker (>10/day) Tobacco Use: Cigarettes Meaningful Use Info Meaningful Use Diagnoses (Choose all that apply): None applicable Code Visit Inpatient E&M: 93203 Disch Hosp
--- NOTE | 2017-12-15 09:30 | EKG12_ITS ---
Test Reason : AM EKG Blood Pressure : / mmHG Vent. Rate : 070 BPM Atrial Rate : 070 BPM P-R Int : 178 ms QRS Dur : 108 ms QT Int : 428 ms P-R-T Axes : 073 032 063 degrees QTc Int : 462 ms Normal sinus rhythm Normal ECG When compared with ECG of 14-DEC-2017 09:50, MANUAL COMPARISON REQUIRED, DATA IS UNCONFIRMED Confirmed by GAYLA BRENNER, SADIQ ([id number]), technical editor POLLO BALLARD ([id number]) on 12/21/2017 4:14:45 PM Referred By: DAMIAN Confirmed By:SADIQ SHUKLA MD
[2017-12-15] MEDS: buPROPion (SR) 150 MG Tablet.SA PO (10:10)
[2017-12-15] MEDS: Clopidogrel Bisulfate 75 MG Tablet PO (10:10)
[2017-12-15] MEDS: Metoprolol Tartrate 25 MG Tablet PO (10:10)
[2017-12-15] MEDS: Lisinopril 20 MG Tablet PO (10:13)
== END 2017-12-15 11:35 | disposition home or self-care (01) ==
LOC: ED 09:24 → PCU 10:08 → ICU 12-14 08:52
PROVIDERS: Internal Medicine Cardiovascular Disease; Emergency Provider Emergency Medicine; Family Provider Family Medicine; PCP Family Medicine
DX: I25.110 Atherosclerotic heart disease of native coronary artery with unstable angina pectoris (principal); Z91.14 Patient's other noncompliance with medication regimen; I10 Essential (primary) hypertension; E11.65 Type 2 diabetes mellitus with hyperglycemia; Z23 Encounter for immunization; Z79.899 Other long term (current) drug therapy; F32.9 Major depressive disorder, single episode, unspecified; F17.210 Nicotine dependence, cigarettes, uncomplicated
CPT/HCPCS: 36415; 71045; 80048; 80061; 81025; 82962; 83036; 84484; 85025; 85027; 85347; 85610; 85730; 92928; 93005; 93306; 93458; 96361; 96374; 99152; 99153; 99218; 99283; 99406; J7030; J7040; Q9967; 90686; A4216; C1725; C1769; C1874; C1887; C1894; C9600; G0378; J2405

== ENCOUNTER → 2018-06-19 | Outpatient (CLI) | payer OTHER, SELFPAY ==
[2018-06-05 15:59] VITALS: BMI 30.1
--- NOTE | 2018-06-19 07:59 | ART_ITS ---
Reason For Study: Claudication Procedure A bilateral lower extremity continuous wave Doppler with analog waveform analysis,segmental pressures,and ankle brachial indexes without exercise. Left Segmental Pressures Left brachial= 133mmHg. Left thigh = 132mmHg. Left calf = 93mmHg. Left posterior tibial artery = 81mmHg. Left dorsalis pedis artery = 74mmHg. Left digit = 38 mmHg. The left dorsalis pedis waveforms are monophasic. The left posterior tibial artery waveforms are monophasic. Right Segmental Pressures Right brachial= 127mmHg. Right thigh = 68mmHg. Right calf = 73mmHg. Right posterior tibial artery = 70mmHg. Right dorsalis pedis artery = 63mmHg. Right digit = 25 mmHg. The right dorsalis pedis waveforms are monophasic. The right posterior tibial artery waveforms are monophasic. Indices The right ankle brachial index by the dorsalis pedis is 0.47. The right ankle brachial index by the posterior tibial artery is 0.53. The right digital-brachial index is 0.19. The left ankle brachial index by the dorsalis pedis is 0.56. The left ankle brachial index by the posterior tibial artery is 0.61. The left digital-brachial index is 0.29. Interpretation Summary 1. Right monophasic flow at ankle and TALIA 0.53. Suggestive iliofemoral disease. 2. Left femoral occlussive disease wth TALIA 0.61 3. Small vessel diseae with dbi 0.19/0.29. Ordering Physician: Aneesh Odonnell Referring Physician: Panfilo Mirza Performed By: Amanda Luna RVT
== END | disposition home or self-care (01) ==
LOC: CVS 07:55
PROVIDERS: Family Provider Family Medicine; PCP Family Medicine; Referring Provider Nurse Practitioner Family; Visit Provider Nurse Practitioner Family
DX: I25.10 Atherosclerotic heart disease of native coronary artery without angina pectoris (principal); I73.9 Peripheral vascular disease, unspecified; F17.210 Nicotine dependence, cigarettes, uncomplicated; E78.5 Hyperlipidemia, unspecified
CPT/HCPCS: 93923

== ENCOUNTER 2019-10-04 08:37 | Emergency (ER) | payer OTHER, SELFPAY ==
[2019-07-23 08:38] VITALS: BMI 28.1
[2019-10-04 08:38] VITALS: BP 84/59; PULSE 71; RESP 14; RESP 16; TEMP 36.1; O2SAT 98; BMI 29.5
[2019-10-04 09:00] VITALS: BP 87/61; PULSE 68; RESP 16; O2SAT 98
--- NOTE | 2019-10-04 09:12 | EKG12_ITS ---
Test Reason : CP Blood Pressure : / mmHG Vent. Rate : 071 BPM Atrial Rate : 071 BPM P-R Int : 174 ms QRS Dur : 106 ms QT Int : 458 ms P-R-T Axes : 059 006 062 degrees QTc Int : 497 ms Normal sinus rhythm Inferior infarct , age undetermined Anterolateral infarct , age undetermined Abnormal ECG Confirmed by LINA BRENNER, MELISSA ([id number]), deputy editor in chief JOO SUERO ([id number]) on 10/11/2019 11:20:40 A M Referred By: DANUTA Confirmed By:ROSA MILLS MD
--- NOTE | 2019-10-04 09:13 | CT_ITS ---
STUDY: CT ABDOMEN AND PELVIS WITHOUT CONTRAST REASON FOR EXAM: Female, 49 years old. EPIGASTRIC PAIN WITH NAUSEA AND VOMITING. TUBIAL LIGATION RADIATION DOSAGE (If Supplied By Facility): CTDIvol = ( 17.05 ) mGy, DLP = ( 1005.26 ) mGycm TECHNIQUE: Transaxial images were obtained from the dome of the diaphragm to the symphysis pubis without oral contrast, and without intravenous contrast. Sagittal and coronal images were reconstructed. Individualized dose optimization techniques were used for this CT. COMPARISON: None. FINDINGS: The visualized lung bases are unremarkable. The visualized portions of the heart are within normal limits. There is borderline enlarged lymph node in the right cardiophrenic angle most likely represent reactive lymphoid hyperplasia. Normal liver. There are multiple gallstones. There is moderate thickening of the gallbladder wall now present chronic cholecystitis or neoplastic process. Normal spleen. Normal pancreas. Normal bilateral adrenal glands. There are bilateral kidney stones the largest measures 3 mm there is no hydronephrosis. Bilateral renal cysts are noted the largest measures 2 cm is in the left kidney. There is scarring in the left kidney. Normal visualized stomach. Normal small intestine. Normal colon. The appendix is visualized and appears normal. There is diffuse atherosclerotic calcification of the abdominal aorta, without a demonstrated aneurysm. Normal inferior vena cava. Normal retroperitoneum. Normal urinary bladder. Normal abdominal wall. Normal osseous structures. CT/Abdomen/Pelvis W IV Cont ONLY IMPRESSION: There are multiple gallstones. There is moderate thickening of the gallbladder wall now present chronic cholecystitis or neoplastic process. Bilateral kidney stones the largest measures 3 mm there is no hydronephrosis. Electronically Signed: Lupillo Swartz, at 10:56 EDT Tel , Service support ,
--- NOTE | 2019-10-04 09:15 | ED.VIS.GEN ---
History of Present Illness <Kye Romero - Last Filed: 10/04/19 15:02> Informant: Patient Onset: Today Context: Sudden Onset Timing: Continuous Quality: Sharp Location: Abdomen diffusely Current Severity: Mild Maximum Severity: Severe Worsened by: Nothing Relieved by: Nothing Associated Symptoms: Lightheadedness Narrative: 49-year-old female with a history of coronary artery disease presents to the emergency department complaining of abdominal pain by squad. Patient was at work. She was standing talking to a coworker. Sudden onset of sharp diffuse abdominal pain that doubled her over. She also felt lightheaded. She was not diaphoretic she was nauseated she did not have any chest pain or shortness of breath she denies any weakness or paresthesias of her upper or lower extremities or back pain. Prior similar symptoms: No Recent Illness/Hospitalization: No <Skyler Cueto - Last Filed: 10/04/19 15:51> Chief Complaint: General Illness Past Medical History - Family History Maternal Family History: Family History (Last Reviewed 03/21/19 @ 16:[address] Aditya Dominguez MD) Mother Heart disease <Kye Romero - Last Filed: 10/04/19 15:02> Prior records reviewed: Yes Past Medical History: - - Coronary artery disease Surgical History: angioplasty Smoking Status: Current every day smoker Alcohol: Occasional Drugs: None - Family History Maternal Family History: Family History (Last Reviewed 03/21/19 @ 16:[address] Aditya Dominguez MD) Mother Heart disease Family History: Reports: Heart Disease <Skyler Cueto - Last Filed: 10/04/19 15:51> - Allergies and Home Meds Allergies/Adverse Reactions: Allergies Penicillins [PCN] Allergy (Verified 10/04/19 08:38) Other INTENSIVIES WHAT IT IS SUPPOSED TO BE TREATING Primary Care Physician: Care Physician,No Primary [Primary Care Provider] - Review of Systems All systems negative except as indicated General: Denies: Chills, Fever, Sweats Eyes: Denies: Visual changes - bilaterally, Blurred Vision - bilaterally, Diplopia ENT: Denies: Rhinorrhea, Sore throat Cardiovascular: Denies: Chest pain, Palpitations Respiratory: Denies: Dyspnea, Cough, Dyspnea on exertion Gastrointestinal: Reports: Abdominal pain, Nausea. Denies: Vomiting, Diarrhea, Constipation, Melena, Hematochezia Genitourinary: Denies: Dysuria, Hematuria, Frequency Musculoskeletal: Denies: Back pain, Extremity Pain Skin: Denies: Rash, Wounds Neurological: Denies: Headache, Weakness, Parasthesia, Numbness Allergy: Denies: Uticaria, Swelling of the mouth, Swelling of the tongue <Skyler Cueto - Last Filed: 10/04/19 15:51> Physical Exam Vital Signs/Narrative: Vital Signs Temp Pulse Resp BP Pulse Ox 10/04/19 12:06 97.9 F 86 13 116/75 97 10/04/19 10:43 76 16 102/67 98 <Kye Romero - Last Filed: 10/04/19 15:02> Vital Signs/Narrative: Vital Signs Temp Pulse Resp BP Pulse Ox 10/04/19 09:00 68 16 87/61 L 98 10/04/19 08:38 96.9 F L 71 14 84/59 L 98 Inital Vital Signs reviewed: Yes General: Well nourished, Well developed, No Acute Distress Head: Normocephalic, Atraumatic Eyes: Perrl, EOMI ENT: Moist mucous membranes, No rhinorrhea Neck: Supple, Nontender Cardiovascular: Regular rate, Regular rhythm, No murmurs Respiratory: No distress, CTA bilaterally, Chest nontender Abdomen: Soft, Nondistended, Normal bowel sounds, Tender. Negative for: Guarding, Rebound tenderness Back: Nontender, Normal Inspection. Negative for: CVA tenderness Extremities: Nontender, No edema, - - Normal active range of motion of all 4 extremities. Normal palpable peripheral pulses of all 4 extremities that are symmetrical. . Negative for: Tenderness, Edema, Calf Tenderness Skin: Normal color, No rash Neurological: Alert, Oriented x3, Cranial nerves II-XII grossly intact, Normal Strength, Normal Sensation Psychological: Normal affect, Normal Mood <Skyler Cueto - Last Filed: 10/04/19 15:51> Diagnostic/Tx/Re-eval - Medical Decision Making I performed a history and physical examination of the patient and discussed management plan with the physician malt specifications control assistant. I reviewed the physician malt specifications control assistant's note and agree with the documented findings and plan of care. It with a near apparent vasovagal syncope due to abdominal pains while at work this morning. Patient states she has been having some upper abdominal pain intermittently. CT was concerning for gallbladder disease. Basic labs are normal. Gallbladder ultrasound demonstrates cholelithiasis and wall thickening. Patient continues to have pain in the upper abdomen. Dr. James is on for surgery and will be down to evaluate the patient. After evaluating the patient and looking at imaging surgery feels this is a potential high risk procedure. There is concerned that calcification may be enveloping the bile duct. He recommends transfer to tertiary care. Patient's been accepted to [facility]. Kye Romero DO, <Kye Romero - Last Filed: 10/04/19 15:02> Chest X-Ray - ED: 2 View, Read by ED Physician, Read by Radiologist - Rhythm Strip Rhythm Strip: Sinus Rhythm Rate: 70 Ectopy: None - EKG Initial EKG Interpretation: Sinus Rhythm, No Acute Injury Pattern Prior: Unchanged <Skyler Cueto - Last Filed: 10/04/19 15:51> ED Disposition <Kye Romero - Last Filed: 10/04/19 15:02> <Skyler Cueto - Last Filed: 10/04/19 15:51> - Plan for ED Patient: Disposition: [facility] Diagnosis: Acute abdominal pain, Vasovagal near syncope, Acute cholecystitis Referrals: Care Physician,No Primary [Primary Care Provider] -
[2019-10-04 09:18] LABS: Absolute Lymphocyte Count 2.02 X10^3/uL (0.83-4.51); Absolute Neutrophil Count 5.3 X10^3/uL (2.0-7.7); Basophil# 0.04 X10^3/uL; Basophil% 0.5 % (0-1); Eosinophils% 2.4 % (0-5); Hematocrit 38.3 % (37-47); Hemoglobin 12.9 g/dL (12.0-15.0); Lymphocyte # 2.02 X10^3/ul (4.0); Lymphocyte % 24.6 % (19-41); Mean Corp Hgb Conc 33.7 g/dL (32-36); Mean Corpuscular Hgb 29.9 pg (27.0-32.0); Mean Corpuscular Volume 88.9 fL (81-99); Mean Platelet Vol. 11.5 fl (6.2-12.0); Monocyte# 0.65 X10^3/uL; Monocyte% 7.9 % (0-10); NRBC Flagged by Analyzer 0 % (0-5); Neutrophil # 5.25 X10^3/uL (2.7-7.7); Neutrophil % 64.1 % (47-70); Platelet Count 196 K/mm3 (150-450); RBC Distribution Width CV 12.5 % (11.6-14.6); RBC Distribution Width SD 39.8 fl (35.1-43.9); Red Blood Count 4.31 M/mm3 (4.2-5.4); White Blood Count 8.2 K/mm3 (4.4-11.0)
[2019-10-04] MEDS: 0.9% Normal Saline 1,000 ML 1000 ML IV (09:21)
[2019-10-04 09:46] LABS: ALB/GLOB Ratio 0.9 RATIO (0.9-2.4); AST(SGOT) 11 U/L (15-37); Alanine Aminotransfer ALT/SGPT 18 U/L (13-56); Alkaline Phosphatase 76 U/L (45-117); Anion Gap 5 (5-15); BUN 10 mg/dL (7-18); BUN/Creat Ratio 11.5 RATIO (10-20); Chloride 106 mmol/L (98-107); Creatinine, Serum 0.87 mg/dL (0.55-1.02); EST Glomerular Filtration Rate 74 mL/min (>60); Est Glom Filt Rate - Afr Amer 89 mL/min (>60); Estimated Creatinine Clearance 67.55 ml/min; Globulin 3.2 g/dL (2.2-4.2); Glucose 346 mg/dL (74-106); Lipase 120 U/L (73-393); Potassium 4.2 mmol/L (3.5-5.1); Protein, Total 6.2 g/dL (6.4-8.2); Sodium Level 136 mmol/L (136-145)
[2019-10-04 09:50] LABS: Bacteria 0 SEEN /hpf (None Seen); Mucous, Urine 0 SEEN /hpf (<or=2+); Red Blood Cells-Urine 0 SEEN /hpf (0-5)
--- NOTE | 2019-10-04 10:02 | RAD_ITS ---
STUDY: X-RAY CHEST REASON FOR EXAM: Female, 49 years old. GENERAL ILLNESS AND LIGHTHEADED. ABDOMEN PAINS AND INTERMITTENT CHEST PAINS BELOW LEFT BREAST. TECHNIQUE: Frontal and lateral views of the chest. COMPARISON: None. FINDINGS: The lungs are clear and expanded. There is no demonstrated pleural abnormality. Normal size heart. Normal mediastinum and jonathan. Normal visualized pulmonary arteries. Normal visualized aortic arch and descending thoracic aorta. Normal visualized thoracic spine. Normal visualized ribs, clavicles, and shoulders. There is no demonstrated abnormality of the visualized soft tissue structures of the upper abdomen. RAD/Chest PA and Lateral IMPRESSION: Normal x-ray examination of the chest. Electronically Signed: Lupillo Swartz, at 10:43 EDT Tel , Service support ,
[2019-10-04 10:17] LABS: Color, Urine Yellow (Yellow); Glucose, Dipstick 1000 mg/dl (Normal); Ketone-Dipstick 5 mg/dl (Negative); Leukocyte Esterase-Dipstick 25 /ul (Negative); Nitrite-Dipstick Negative (Negative); Occult Blood-Urine 10 /ul (Negative); Protein-Dipstick 100 mg/dl (Negative); Specific Gravity, Urine 1.015 (1.002-1.030); Urine Bilirubin Dipstick Negative (Negative); Urine Clarity Clear (Clear); Urine Urobilinogen Normal (Normal)
[2019-10-04 10:20] LABS: Hyaline Cast 0-5 SEEN /lpf (0-5); Squamous Epithelial Cells - UA 0-5 SEEN /hpf (5-10); White Blood Cells 0-5 SEEN /hpf (0-5)
[2019-10-04 10:43] VITALS: BP 102/67; PULSE 76; RESP 16; O2SAT 98
--- NOTE | 2019-10-04 10:59 | US_ITS ---
STUDY: ULTRASOUND GALLBLADDER REASON FOR VISIT: Female, 49 years old. ABD PAIN, NAUSEA, VOMITING X TODAY TECHNIQUE: Ultrasound evaluation of the gallbladder was performed with real-time and static cody-scale imaging. TECHNICAL QUALITY: Adequate. COMPARISON: None. FINDINGS: Gallbladder: Normal distended gallbladder. The gallbladder wall measures 6 mm. There is a negative sonographic Olson''s sign. There is no pericholecystic fluid. There are multiple echogenic structures within the gallbladder, consistent with multiple gallstones. There is irregular thickening of the gallbladder wall maybe due to chronic cholecystitis or neoplastic process. Common Bile Duct (C.B.D.): The common bile duct measures 6 mm. US/Gallbladder IMPRESSION: Cholelithiasis. There is irregular thickening of the gallbladder wall maybe due to chronic cholecystitis or neoplastic process. Electronically Signed: Lupillo Swartz, at 12:13 EDT Tel , Service support ,
[2019-10-04 12:06] VITALS: BP 116/75; PULSE 86; RESP 13; TEMP 36.6; O2SAT 97
[2019-10-04] MEDS: Morphine 4 MG/ML Syringe IV (12:24)
[2019-10-04] MEDS: Ondansetron 4 MG/2 ML Vial IV (12:24)
--- NOTE | 2019-10-04 14:19 | PCM.CONS.GEN ---
Problem List (1) Thickening of wall of gallbladder Status: Acute Reason for Consult Date of Consultation: 10/04/19 History of Present Illness: The patient is a 49 year old F who presents with vasovagal symptoms as well as pain. Patient reports that this morning she felt very dizzy and her eyes begin dim and she had pain on the left side of her neck. Patient reports her pain is umbilical and radiates down toward her suprapubic region. She denies any nausea or vomiting. Past Medical History Past Medical History (Chronic Problems): Chronic Problems (Last Reviewed 03/21/19 @ 16:[address] Aditya Dominguez MD) Atherosclerosis of coronary artery of [place] heart without angina pectoris (Chronic) HSS-PLY-Ssrkaw RCA w/ 2.5 x 8 mm Resolute Integrity Stent 12/14/17 History of coronary artery stent placement (Chronic 12/14/17) RSA-EMG-Uewspt RCA w/ 2.5 x 8 mm Resolute Integrity Stent 12/14/17 Essential (primary) hypertension (Chronic) Hyperlipidemia (Chronic) Claudication (Chronic) Nicotine dependence (Chronic) Medical History: Medical History (Last Reviewed 03/21/19 @ 16:[address] Aditya Dominguez MD) Atherosclerosis of coronary artery of [place] heart without angina pectoris (Chronic) I25.10 SAL-STY-Guwftp RCA w/ 2.5 x 8 mm Resolute Integrity Stent 12/14/17 Essential (primary) hypertension (Chronic) I10 Hyperlipidemia (Chronic) E78.5 Claudication (Chronic) I73.9 Nicotine dependence (Chronic) F17.200 Depression F32.9 Type 2 diabetes mellitus E11.9 Allergies Penicillins [PCN] Allergy (Verified 10/04/19 08:38) Other INTENSIVIES WHAT IT IS SUPPOSED TO BE TREATING Home Medications: Ambulatory Orders Medication Instructions Recorded Aspirin E.C. [Ecotrin] 81 mg PO DAILY@0800 tab 12/15/17 atorvastatin 80 mg tablet 80 mg PO QHS #90 tab 07/23/19 clopidogrel 75 mg tablet 75 mg PO DAILY #90 tab 07/23/19 lisinopril 20 mg tablet 20 mg PO DAILY #90 tab 07/23/19 metoprolol tartrate 25 mg tablet 25 mg PO BID #180 tab 07/23/19 isosorbide mononitrate 60 mg 60 mg PO DAILY #90 tab 08/05/19 tablet,extended release 24 hr Surgical History: Surgical History (Last Reviewed 03/21/19 @ 16:[address] 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 Aditya Dominguez MD) Mother Heart disease History Items: Heart Disease Review of Systems Constitutional: Denies: Anorexia, Fever Eyes: Reports: Vision Change HEENT: Denies: Difficulty Swallowing Cardiovascular: Denies: Chest Pain Respiratory: Denies: Cough, Shortness of Breath Gastrointestinal: Reports: Abdominal Pain. Denies: Nausea, Vomiting Musculoskeletal: Denies: Joint Tenderness Skin: Denies: Jaundice Neurological: Denies: Balance problems Hematologic/ Lymphatic: Denies: Anemia Patient Problems: Active and Suspected Problems (Last Reviewed 03/21/19 @ 16:[address] Aditya Dominguez MD) Thickening of wall of gallbladder (Acute) - Physical Exam Vitals/I&O's: Vital Signs Temp Pulse Resp BP Pulse Ox 97.9 F 86 13 116/75 97 10/04/19 12:06 10/04/19 12:06 10/04/19 12:06 10/04/19 12:06 10/04/19 12:06 Oxygen Delivery Method Room Air Weight: 171 lb 15.369 oz Body Mass Index (BMI) 29.5 Intake and Output for Last 24 Hours 10/02/19 10/03/19 10/04/19 23:59 23:59 23:59 Intake Total 1000 / 1000 Balance 1000 / 1000 General: Alert, Oriented x3 Neck: No JVD Lungs: Normal air movement Cardiovascular: Regular rate, Regular Rhythm Abdomen: Soft, Non-Distended, Tender - Tender in the right lower abdomen Extremities: No clubbing Musculoskeletal: No Muscle Wasting Neurological: Cranial nerves II-XII grossly intact Psych/Mental Status: Normal Affect Laboratory Results 10/04/19 08:52: WBC 8.2, RBC 4.31, Hgb 12.9, Hct 38.3, MCV 88.9, MCH 29.9, MCHC 33.7, RDW Std Deviation 39.8, RDW Coeff of Maria R 12.5, Plt Count 196, MPV 11.5, Immature Gran % (Auto) 0.500, Neut % (Auto) 64.1, Lymph % (Auto) 24.6, [facility] % (Auto) 7.9, Eos % (Auto) 2.4, Baso % (Auto) 0.5, Absolute Neuts (auto) 5.3, Absolute Lymphs (auto) 2.02, Nucleated RBC % 0 10/04/19 08:52: Sodium 136, Potassium 4.2, Chloride 106, Carbon Dioxide 25.0, Anion Gap 5, BUN 10, Creatinine 0.87, Estim Creat Clear Calc 67.55, Est GFR (MDRD) Af Amer 89, Est GFR (MDRD) Non-Af 74, BUN/Creatinine Ratio 11.5, Glucose 346 H, Calcium 8.0 L, Total Bilirubin 0.40, AST 11 L, ALT 18, Alkaline Phosphatase 76, Troponin I < 0.015, Total Protein 6.2 L, Albumin 3.0 L, Globulin 3.2, Albumin/Globulin Ratio 0.9, Lipase 120 10/04/19 09:45: Urine Color Yellow, Urine Clarity Clear, Urine pH 6.0, Ur Specific [place] 1.015, Urine Protein 100 H, Urine Glucose (UA) 1000 H, Urine Ketones 5 H, Urine Occult Blood 10 H, Urine Nitrite Negative, Urine Bilirubin Negative, Urine Urobilinogen Normal, Ur Leukocyte Esterase 25 H, Urine RBC 0 SEEN, Urine WBC 0-5 SEEN, Ur Squamous Epith Cells 0-5 SEEN, Urine Bacteria 0 SEEN, Hyaline Casts 0-5 SEEN, Urine Mucus 0 SEEN Clinical Impression(s) from Imaging Studies Abdomen/Pelvis CT 10/04/19 09:13 IMPRESSION: There are multiple gallstones. There is moderate thickening of the gallbladder wall now present chronic cholecystitis or neoplastic process. Bilateral kidney stones the largest measures 3 mm there is no hydronephrosis. Electronically Signed: Lupillo Swartz, at 10:56 EDT Tel , Service support , Chest X-Ray 10/04/19 10:02 IMPRESSION: Normal x-ray examination of the chest. Electronically Signed: Lupillo Swartz, at 10:43 EDT Tel , Service support , Gallbladder Ultrasound 10/04/19 10:59 IMPRESSION: Cholelithiasis. There is irregular thickening of the gallbladder wall maybe due to chronic cholecystitis or neoplastic process. Electronically Signed: Lupillo Swartz, at 12:13 EDT Tel , Service support , Assessment/Plan All Active Problems (Last Reviewed 03/21/19 @ 16:[address] Aditya Dominguez MD) Thickening of wall of gallbladder (Acute) Exertional angina (Acute) Chest pain (Resolved) Unstable angina (Resolved) 49-year-old female with thickening of gallbladder wall 1. The patient has a large calcified area in the gallbladder. Unsure if this is malignancy or a large irregular gallstone. It appears contour around the common bile duct. Patient also has irregular thickening of the gallbladder wall which is chronic cholecystitis versus malignancy. With this large calcified area very close to the common bile duct and even contour around it I believe there is a very high risk of common bile duct injury associated with surgery. I would recommend the patient be transferred to a tertiary care center with a biliary surgeon available. I discussed this with the patient and she is in agreement. Skyler James MD Pager: [facility] [address] [place] [address], [address] [place] [address] Office:
[2019-10-04 14:21] VITALS: BP 120/71; PULSE 70; RESP 13; O2SAT 98
[2019-10-04] MEDS: metroNIDAZOLE 500 MG/100 ML BAG 100 MG IV (16:20)
[2019-10-04 16:34] VITALS: BP 102/67; PULSE 76; RESP 16; O2SAT 98
== END 2019-10-04 18:07 | disposition short-term general hospital (02) ==
PROVIDERS: Emergency Provider Physician Assistant Medical
DX: K80.00 Calculus of gallbladder with acute cholecystitis without obstruction (principal); R55 Syncope and collapse; I25.10 Atherosclerotic heart disease of native coronary artery without angina pectoris; E11.51 Type 2 diabetes mellitus with diabetic peripheral angiopathy without gangrene; I10 Essential (primary) hypertension; E78.5 Hyperlipidemia, unspecified; F32.9 Major depressive disorder, single episode, unspecified; F17.200 Nicotine dependence, unspecified, uncomplicated; Z79.82 Long term (current) use of aspirin; Z95.5 Presence of coronary angioplasty implant and graft
CPT/HCPCS: 71046; 74177; 76705; 80053; 81001; 83690; 84484; 85025; 93005; 96361; 96365; 96366; 96375; 99285; J7050; Q9967; A4216; J2405

== ENCOUNTER 2020-03-18 18:12 | Inpatient (IN) | payer OTHER, SELFPAY ==
[2020-03-18] VITALS (17 sets, daily range): BP systolic 82–138; BP diastolic 46–89; PULSE 79–101; RESP 10–22; TEMP 36.4–36.8; O2SAT 93–100; BMI 28.1; BMI 27.6
--- NOTE | 2020-03-18 18:36 | EKG12_ITS ---
Test Reason : CHEST PAIN Blood Pressure : / mmHG Vent. Rate : 092 BPM Atrial Rate : 092 BPM P-R Int : 156 ms QRS Dur : 106 ms QT Int : 462 ms P-R-T Axes : 071 021 102 degrees QTc Int : 571 ms AGE AND GENDER SPECIFIC ECG ANALYSIS Normal sinus rhythm Right atrial enlargement Inferior infarct , possibly acute Anterolateral infarct , age undetermined Prolonged QT ACUTE AL / STEMI Consider right ventricular involvement in acute inferior infarct Abnormal ECG Confirmed by MORENA BRENNER, JOSE ([id number]), marketing editor KINZA THIBODEAUX ([id number]) on 03/20/2020 11:10:01 AM Referred By: ES Confirmed By:JOSE BERG MD
[2020-03-18] MEDS: TICAGRELOR 90 MG TABLET 180 MG PO (18:39)
[2020-03-18] MEDS: Aspirin 81 MG TAB.CHEW 324 MG PO (18:40)
--- NOTE | 2020-03-18 18:42 | ED.DCSUM_ITS ---
- ER Visit Summary Date of Service: 03/18/20 Chief Complaint: Chest pain History of Present Illness: The patient is a 50 F who presents with chest pain that began yesterday. Patient states her pain feels like a heaviness across her chest. Patient states it radiates into her back. Patient admits to some nausea but denies any vomiting. Patient admits to some shortness of breath. Patient states nothing makes it worse and nothing makes it better. Patient denies any fevers or chills. Patient denies any cough. Patient denies any lightheadedness. Patient admits to some diaphoresis when the pain began yesterday but denies any further episodes of diaphoresis. Physical Examination: Vital signs are stable. Patient is afebrile. Patient is in no acute distress. Oral mucosa is pink and moist. Neck is supple. Trachea is midline. There is no JVD noted. Heart was regular rate and rhythm. Lungs are clear and equal bilaterally. Abdomen is soft. Bowel sounds are normal. There is no tenderness. There is no rebound or guarding noted. Skin is warm dry. Cranial nerves II through XII are intact. There are no focal motor or sensory deficits noted. Extremities are intact. There is no calf tenderness or edema. Test Results: EKG was obtained. On my interpretation, there is normal sinus rhythm with a rate of 92. There is ST elevation in leads V2 through V5. There is T wave inversion in those leads as well. There are Q waves in the inferior leads. Portable 1 view chest x-ray was obtained. On my interpretation, lung wise are clear. There is normal cardiac silhouette. Bony thorax is normal. There is no acute process noted. Radiologist also interpreted the x-ray and agrees. Emergency Department Course and Treatment: STEMI alert was called. Patient was given aspirin, heparin, Brilinta, and morphine. Case was discussed with Dr. Wolfe, STEMI in flight technician. He will take the patient to the Senior Clinical Project Manager. Case was discussed with the hospitalist, Dr. Saravia. She will admit the patient to her s ervice. Patient understood and was agreeable with the plan. All questions were answered. Disposition: Transfer to Senior Clinical Project Manager, admit to hospital Impression: 1. Acute STEMI Critical care time: 30 minutes. This was time spent obtaining history, performing physical examination, documenting, interpreting test results, discussion with consultants, and determining disposition. This note was generated with [employer] dictation software. It may contain incorrect words, spelling, and punctuation that were not noted in review of the chart prior to signing ED Disposition - Plan for ED Patient: Disposition: Acute Care Hospital [facility] Diagnosis: Acute ST elevation myocardial infarction (STEMI)
--- NOTE | 2020-03-18 18:42 | RAD_ITS ---
STUDY: X-RAY CHEST REASON FOR EXAM: Female, 50 years old. STEMI. CP since yesterday, radiates across chest, back, shoulders, and armpits. also reports N/V/D. TECHNIQUE: Frontal view COMPARISON: 10/04/2019 FINDINGS: The lungs are clear and expanded. There is no demonstrated pleural abnormality. Normal size heart. Normal mediastinum and jonathan. Normal visualized pulmonary arteries. Normal visualized aortic arch and descending thoracic aorta. Normal visualized thoracic spine. Normal visualized ribs, clavicles, and shoulders. There is no demonstrated abnormality of the visualized soft tissue structures of the upper abdomen. RAD/Chest 1 View (Portable) IMPRESSION: Normal x-ray examination of the chest. Electronically Signed: Dionicio Del Angel DO at 19:01 EST Tel [phone], Service support ,
[2020-03-18] MEDS: Heparin Injection (Vial) 5,000 UNIT/ML VIAL 4000 UNIT IV (18:44)
[2020-03-18 18:46] LABS: Absolute Lymphocyte Count 3.88 X10^3/uL (0.83-4.51); Absolute Neutrophil Count 3.8 X10^3/uL (2.0-7.7); Basophil# 0.05 X10^3/uL; Basophil% 0.6 % (0-1); Eosinophil# 0.14 X10^3/uL; Eosinophils% 1.6 % (0-5); Hematocrit 41.7 % (37-47); Hemoglobin 14.2 g/dL (12.0-15.0); Lymphocyte # 3.88 X10^3/ul (4.0); Mean Corp Hgb Conc 34.1 g/dL (32-36); Mean Corpuscular Hgb 28.6 pg (27.0-32.0); Mean Corpuscular Volume 83.9 fL (81-99); Mean Platelet Vol. 11.8 fl (6.2-12.0); Monocyte# 0.69 X10^3/uL; NRBC Flagged by Analyzer 0 % (0-5); Neutrophil # 3.84 X10^3/uL (2.7-7.7); Neutrophil % 44.5 % (47-70); Platelet Count 224 K/mm3 (150-450); RBC Distribution Width CV 12.9 % (11.6-14.6); Red Blood Count 4.97 M/mm3 (4.2-5.4); White Blood Count 8.6 K/mm3 (4.4-11.0)
--- NOTE | 2020-03-18 18:47 | ED.RN ---
This nurse spoke with the patient's aunt Malik to give her an update per the patient request.
--- NOTE | 2020-03-18 18:48 | CM.ED ---
SOCIAL WORK STEMI Alert Responded to STEMI alert. No family present. Nursing has called to update patient's auntMalik per patient's request. This worker to remain available for needs. Juan Steel, STORE RECEIVER, EXTRACTIONS TECHNICIAN
[2020-03-18] MEDS: Morphine 2 MG/ML Syringe IV (18:50)
--- NOTE | 2020-03-18 18:50 | HP.PCM_ITS ---
Problem List (1) STEMI (ST elevation myocardial infarction) Status: Acute History of Present Illness Date of Admission: 03/18/20 Ms Palumbo is a 50 year old WF with a PMH of CAD status post PCI with SUHAIL to ostial RCA in 2018, HTN, HPL, DM-2, and nicotine dependence who presented to the emergency department at [facility] on 03/18/2020 complaining of chest pain. Her EKG showed ST elevations in the inferior leads reciprocal depression and a STEMI alert was called but upon review with program scheduler the patient had already had Q waves present in a STEMI call was canceled, but cardiac catheterization was performed. Per the patient her symptoms have started yesterday and have been waxing and waning in intensity but never were completely gone. She states she comes today after her aunt urged her to present. She drove herself to the emergency department. She states that yesterday she had some nausea with an emesis. She has had pain radiating bilateral arms and into her neck and chest pressure centrally that radiates to her back. Past Medical History Past Medical History (Chronic Problems): Chronic Problems (Last Reviewed 03/21/19 @ 16:[address] Aditya Dominguez MD) Atherosclerosis of coronary artery of [place] heart without angina pectoris (Chronic) WYT-UZK-Hxktfc RCA w/ 2.5 x 8 mm Resolute Integrity Stent 12/14/17 History of coronary artery stent placement (Chronic 12/14/17) YWW-XCH-Yeufaj RCA w/ 2.5 x 8 mm Resolute Integrity Stent 12/14/17 Essential (primary) hypertension (Chronic) Hyperlipidemia (Chronic) Claudication (Chronic) Nicotine dependence (Chronic) Medical History: Medical History (Last Reviewed 03/18/20 @ 19:[address] Elana Saravia DO) Atherosclerosis of coronary artery of [place] heart without angina pectoris (Chronic) I25.10 FNV-VXV-Pndeio RCA w/ 2.5 x 8 mm Resolute Integrity Stent 12/14/17 Essential (primary) hypertension (Chronic) I10 Hyperlipidemia (Chronic) E78.5 Claudication (Chronic) I73.9 Nicotine dependence (Chronic) F17.200 Depression F32.9 Type 2 diabetes mellitus E11.9 Allergies Penicillins [PCN] Allergy (Verified 10/04/19 08:38) Other INTENSIVIES WHAT IT IS SUPPOSED TO BE TREATING Home Medications: Ambulatory Orders Medication Instructions Recorded Aspirin E.C. [Ecotrin] 81 mg PO DAILY@0800 tab 12/15/17 atorvastatin 80 mg tablet 80 mg PO QHS #90 tab 07/23/19 clopidogrel 75 mg tablet 75 mg PO DAILY #90 tab 07/23/19 lisinopril 20 mg tablet 20 mg PO DAILY #90 tab 07/23/19 metoprolol tartrate 25 mg tablet 25 mg PO BID #180 tab 07/23/19 isosorbide mononitrate 60 mg 60 mg PO DAILY #90 tab 08/05/19 tablet,extended release 24 hr Surgical History: Surgical History (Last Reviewed 03/18/20 @ 19:[address] 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 Elana Saravia DO) Mother Heart disease History Items: Heart Disease Review of Systems Constitutional: Reports: Fatigue. Denies: Anorexia, Chills, Fever, Night Sweats, Malaise, Weakness, Weight Change Eyes: Denies: Blurred vision, Cataracts, Conjunctivae Inflammation, Double vision, Drainage, Eyelid Inflammation, Pain, Redness, Vision Change HEENT: Denies: Difficulty Hearing, Difficulty Swallowing, Ear Pain, Eye Pain, Head Aches, Nasal Congestion, Post Nasal Drip, Sinus Congestion, Sinus Drainage, Sore Throat, Visual Changes Cardiovascular: Reports: Chest Pain, Chest Pressure, Chest Tightness, Heaviness. Denies: Claudication, Edema, Light Headedness, Orthopnea, Palpitations, Paroxysmal Noc. Dyspnea, Syncope Respiratory: Reports: Shortness of Breath, Shortness of breath at rest, Shortness of breath upon exertion. Denies: Cough, Hemoptysis, Pleuritic Pain, Sputum production, Wheezing Gastrointestinal: Reports: Nausea, Vomiting. Denies: Abdominal Pain, Constipation, Diarrhea, Dyspepsia, Hematemesis, Hematochezia, Melena Genitourinary: Denies: Dysuria, Frequency, Hematuria, Hesitancy, Incontinence, Nocturia, Retention, Urgency Musculoskeletal: Reports: Arm Pain, Back Pain, Neck Pain - Lateral, Shoulder Pain - Bilateral lateral. Denies: Joint Pain, Joint stiffness, Joint swelling, Joint Tenderness Skin: Denies: Dryness, Jaundice, Lesions, Pruritis, Rash, Skin Changes, Wounds Neurological: Denies: Balance problems, Blurred vision, Double vision, Change in Speech, Slurred speech, Confusion, Difficulty swallowing, Focal weakness, Headaches, Incoordination, Numbness, Tingling, Tremor, Seizures Psychiatric: Denies: Anxiety, Depression Endocrine: Denies: Change in Body Habitus, Heat/ Cold Intolerance, Polydipsia, Polyuria Hematologic/ Lymphatic: Denies: Adenopathy, Anemia, Easy Bruising, Easy Bleeding, Petechiae, Purpura VTE Information - Inpt Only VTE Present on Admission: No VTE Mechan Device Prophylaxis: None VTE Pharm Prophylaxis ordered?: Yes - Physical Exam Vitals/I&O's: Vital Signs Temp Pulse Resp BP Pulse Ox 98.2 F 98 18 101/77 100 03/18/20 18:45 03/18/20 18:45 03/18/20 18:45 03/18/20 18:45 03/18/20 18:45 Oxygen Flow Rate (L/min) 2 Oxygen Delivery Method Nasal Cannula Weight: 74.4 kg Body Mass Index (BMI) 28.1 General: Alert, Oriented x3, Cooperative, No apparent distress, Well developed, Well nourished, - - Middle-aged white female who appears older than stated age, lying in bed, nontoxic-appearing HEENT: Atraumatic, PERRLA, EOMI, Normocephalic, EAC Clear Oral: Moist Mucosa, No Gingival or Mucosal Lesions/ Ulcerations, - - Dentition, Mallampati 2 Neck: Supple, No JVD, Negative Carotid Bruits, Negative Hepatojugular Reflux, No Nodes, No Nuchal Rigidity, Trachea Midline, Thyroid Normal Size and Texture Lungs: No rhonchi - Loosely, No wheeze, No rales, Diminished Cardiovascular: Regular rate, Regular Rhythm, Normal S1, Normal S2, No murmurs, No rub noted, No Gallop, - - Few ectopic beats Abdomen: Bowel Sounds Present, Soft, Non Tender, Non-Distended, Obese Extremities: No clubbing, No cyanosis, No edema, Capillary Refill Less than 3 Se conds, Peripheral Pulses Normal Skin: No rashes, No breakdown, - - Pale, tattoo present on dorsum of left foot Musculoskeletal: No Tenderness to Palpation of Joints or Extremities, No Muscle Wasting, - Lymphatic: No Cervical, Supraclavicular, or Inguinal Adenopathy Neurological: Cranial nerves II-XII grossly intact, Deep Tendon Reflexes 2+/4 and Symmetrical, Neuro grossly intact, Muscle tone normal, Sensory exam intact to light touch and pain, Coordination normal Psych/Mental Status: Normal Affect, Appropriate Laboratory Results 03/18/20 18:30: WBC 8.6, RBC 4.97, Hgb 14.2, Hct 41.7, MCV 83.9, MCH 28.6, MCHC 34.1, RDW Std Deviation 39.0, RDW Coeff of Maria R 12.9, Plt Count 224, MPV 11.8, Immature Gran % (Auto) 0.300, Neut % (Auto) 44.5 L, Lymph % (Auto) 45.0 H, Placer % (Auto) 8.0, Eos % (Auto) 1.6, Baso % (Auto) 0.6, Absolute Neuts (auto) 3.8, Absolute Lymphs (auto) 3.88, Nucleated RBC % 0 03/18/20 18:30: PT Pending, INR Pending, APTT Pending 03/18/20 18:30: Sodium Pending, Potassium Pending, Chloride Pending, Carbon Dioxide Pending, Anion Gap Pending, BUN Pending, Creatinine Pending, Est GFR (MDRD) Af Amer Pending, Est GFR (MDRD) Non-Af Pending, BUN/Creatinine Ratio Pending, Glucose Pending, Calcium Pending, Troponin I Pending Assessment/Plan All Active Problems (Last Reviewed 03/21/19 @ 16:[address] Aditya Dominguez MD) Thickening of wall of gallbladder (Acute) STEMI (ST elevation myocardial infarction) (Acute) Exertional angina (Acute) Chest pain (Resolved) Unstable angina (Resolved) Acute inferior myocardial infarction -Patient was given aspirin 324 mg and Brilinta ED -EKG showed ST depression in the inferior leads with reciprocal depression but Q waves were present already I suspect this is because her acute STEMI happened yesterday -Troponin on arrival was 4.890 -Patient was taken to the Bridal Stylist Sales Consultant -Check a.m. lipids -Check A1c -Continue baby aspirin -Cardiology following Hypertension -BP was stable in the emergency department -Hold isosorbide mononitrate 60 mg daily and lisinopril 20 mg -Use lisinopril 10 mg -Continue metoprolol 25 mg twice daily -Blood pressures and restart home medications as able Hyperlipidemia -Check lipids in a.m. -Continue atorvastatin 80 mg nightly DM-2 -Check A1c -SSI -BG T before meals and at bedtime -Cardiac/carb controlled diet Nicotine dependence -Recommend smoking cessation -Nicotine patch if okay with cardiology DVT prophylaxis -Lovenox 40 mg daily CODE STATUS -Full code Inpatient E&M: 14912 Init Hosp L3
[2020-03-18 18:51] LABS: Prothrombin Time (Protime)PT. 13.1 SECONDS (11.7-14.9)
[2020-03-18 18:52] LABS: Partial Thromboplast Time 26.7 Seconds (24.1-36.2)
[2020-03-18 19:07] LABS: Anion Gap 6 (5-15); BUN 11 mg/dL (7-18); BUN/Creat Ratio 16.3 RATIO (10-20); Calcium,Total 9.1 mg/dL (8.5-10.1); Chloride 107 mmol/L (98-107); Creatinine, Serum 0.67 mg/dL (0.55-1.02); EST Glomerular Filtration Rate 98 mL/min (>60); Est Glom Filt Rate - Afr Amer 119 mL/min (>60); Estimated Creatinine Clearance 86.74 ml/min; Glucose 287 mg/dL (74-106); Potassium 3.5 mmol/L (3.5-5.1); Sodium Level 137 mmol/L (136-145)
--- NOTE | 2020-03-18 20:00 | EKG12_ITS ---
Test Reason : POST STEMI Blood Pressure : / mmHG Vent. Rate : 079 BPM Atrial Rate : 079 BPM P-R Int : 168 ms QRS Dur : 110 ms QT Int : 484 ms P-R-T Axes : 061 021 111 degrees QTc Int : 554 ms AGE AND GENDER SPECIFIC ECG ANALYSIS Normal sinus rhythm Inferior infarct , possibly acute Anterolateral infarct , age undetermined Prolonged QT * ACUTE HI Abnormal ECG Confirmed by MORENA BRENNER, JOSE ([id number]), acquisition editor KINZA THIBODEAUX ([id number]) on 03/20/2020 10:49:53 AM Referred By: ARCHANA Confirmed By:JOSE BERG MD
--- NOTE | 2020-03-18 20:07 | PCI.CARDCATH ---
PCI Cardiac Cath Report PCI Report: Procedure performed; 1. Moderate sedation using intravenous Versed intravenous fentanyl 2. Left heart catheterization, LVEDP measurement. 3. Successful percutaneous coronary intervention of the culprit lesion, pre-PCI occluded LAD with YASIR 0 flow preprocedure Post PCI successful placement of drug-eluting stent 2.5 x 3 mm Synergy stent/drug-eluting stent with 0% stenosis and YASIR-3 flow in the LAD 4. 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 She lives by herself and she had a history of diabetes and currently she is a smoker, she had ongoing symptoms of retrosternal chest pain for the last 2 to 3 days which radiated to the back, her symptoms got worse this evening and she drove herself to the ER where an electrocardiogram was obtained by the ER physician. The electrocardiographic finding revealed clear evidence of old inferior HI with Q waves noted in the inferior lead and also showed recent anterior -lateral HI With clear evidence of Q waves noted in the anterior and lateral leads. Patient was given aspirin, Brilinta, heparin 4000 in the emergency department and was brought over here as an emergency to the Underground Distribution [employer]. The clinical diagnosis is acute coronary syndrome, with non-ST elevation myocardial infarction, she had mildly elevated troponin 4.3 and I review her her current lab which includes a CBC renal function normal. Consent, obtained with explanation of risk and benefit of the procedure. Diagnostic catheter used, we used JL 3.55 [place]e and 5 Senegalese JR4 catheter, regular J-wire. Access obtained from the right radial artery and 6 [place]e sheath placed in the right radial artery a cocktail of 3000 heparin, nitro and 2.5 verapamil was given. Then we proceed with a diagnostic catheter 3.5 JL4 selective angiographic view of the left coronary system were obtained and angiographic views were obtained Following discussed the change for JR4 catheter and noted occlusion of the RCA stent proximally. Following this all angiographic views were restarted and the culprit identified as occluded mid LAD which is recent at least 2 days according to her symptoms and the change in the EKG. Interventional plan and equipment; We used 3.0 EBU guide 6 [place]e, run-through wire x2, regular 2 x 15 mm wire balloon, drug-eluting stent Synergy 2.5 x 32 mm, NC balloon 2.75 x 20. Under fluoroscopic guidance we will proceed with the EBU guide catheter, patient has separate ostia for the LAD and the left circumflex artery We will proceed with the guidewire, run-through across the lesion and the wire placed in the diagonal branch and use another wire which was placed in the LAD, we predilated the lesion using 2 x 15 mm balloon and identified the culprit occluded mid LAD with YASIR 0 flow, will place 2.5 x 32 mm drug-eluting stent Synergy into the mid LAD and postdilated with 2.75 x 20 mm NC balloon and achieved 0% stenosis with YASIR-3 flow in the LAD. Following this we will proceed with JR4 across aortic valve and placed the catheter in the mid ventricle and LVEDP measured. Findings, hemodynamic; LVEDP measured 34 mmHg Patient was given 4 mg of IV Lasix. Findings of coronary angiography; Separate ostia of the LAD with occluded LAD at the midportion, LAD is a large vessel reach all the way to the apex had a very diagonal which is diffusely diseased Abundant septal branches were noted, 30 septal branch is large and following the procedure LAD has no significant atherosclerosis distally. Left circumflex is a large vessel, OM1 at ostial 80% stenosis, distal left circumflex had 90% stenosis. Collaterals were noted from the left circumflex to the distal RCA/posterolateral branch RCA occluded proximally/occluded RCA stent. Conclusion and plan; 1. Patient presented with acute coronary syndrome with non-ST elevation HI in the LAD distribution with occluded LAD and successful PCI as described 2. Patient has significant elevated LVEDP and will be monitored in the intensive care unit and was given Lasix IV. 3. Patient has occluded proximal RCA stent with collaterals from the circumflex to the distal RCA 4. Patient has significant atherosclerosis of the ostial OM1 and the mid to distal left circumflex Recommendation; 1. We will continue on dual antiplatelet low-dose aspirin 81 mg/Brilinta 90 mg twice daily for 1 year and low-dose aspirin indefinitely. 2. Beta-kiel preference will be carvedilol 3.125 mg twice daily 3. ODALIS inhibitor low-dose lisinopril as tolerated 4. Patient to be admitted to the hospitalist with a cardiology consultation statin atorvastatin 40 mg once a day 5. 2D echocardiogram in the morning #6 cardiac rehabilitation program phase 1. 7. Patient will follow-up with the cardiology outpatient for continued of cardiac care plan and to discuss plan of elective PCI of the left circumflex and OM1. Jocelynn Wolfe MD, FACC, [facility] asset manager
--- NOTE | 2020-03-18 20:31 | CON.PCM_ITS ---
Reason for Consult Date of Consultation: 03/18/20 History of Present Illness: The patient is a 50 year old F, patient known to have history of coronary artery disease with prior inferior HI 2 years ago Had a PCI and stent of the RCA at that time. She presented with symptoms of retrosternal chest pain with radiation to the back, this has been ongoing for the last 2 to 3 days and evidently she drove herself to the ER today as her symptoms get worse. When she was seen by the ER physician and showed change in the EKG with old inferior HI and a Q-wave in the inferior lead and she had a recent anterior HI with T wave inversion in the anterior lead and a Q-wave in the lateral leads As well she had clear evidence of acute coronary syndrome with elevated troponins 4.3. Patient was treated in the ER she was given aspirin, Brilinta, heparin and morphine and her symptoms improve gradually and was taken to the [employer] as an emergency as she continues to have symptoms of chest pain With a clinical diagnosis of CAD, non-ST elevation myocardial infarction Cardiac exam essentially S1-S2 regular she been in normal sinus rhythm. Chest exam is clear to auscultation She was alert orientated and was complaining of chest pain is still in the [facility] [employer] [facility]. We will proceed with urgent cardiac catheterization, identified the culprit lesion which is occluded mid LAD underwent successful percutaneous core intervention and placement of a drug-eluting stent 2.5 x 32 mm Synergy stent postdilated with 2.75 and achievement of excellent result with YASIR-3 flow in the LAD Patient had extensive coronary atherosclerosis with occluded RCA proximally/occluded stent with collaterals from the left circumflex to the posterolateral branch of the RCA which is a large and dominant vessel The LAD also is large vessel reaching all the way to the apex and occluded proximally Also patient underwent evaluation by measurement of LVEDP elevated up to 34 mmHg and patient was given Lasix 40 mg. She was given heparin a total of 7000. In addition to the Brilinta on a low- dose aspirin Assessment and plan; We reviewed all her current medication patient will be on dual antiplatelet including Brilinta aspirin She was not starting atorvastatin 40 mg once a day Beta-kiel carvedilol 3.125 twice daily Lisinopril low-dose as tolerated 2.5 mg Also patient will start on cardiac rehab program phase 1 on discharge. Patient advised cessation of smoking and also compliance with dual antiplatelet therapy Echocardiogram will be performed in the morning to assess LV function and to evaluate her valves. [] Past Medical History Allergies/Adverse Reactions: Allergies Penicillins [PCN] Allergy (Verified 10/04/19 08:38) Other INTENSIVIES WHAT IT IS SUPPOSED TO BE TREATING Home Medications: Ambulatory Orders Medication Instructions Recorded Aspirin E.C. [Ecotrin] 81 mg PO DAILY@0800 tab 12/15/17 atorvastatin 80 mg tablet 80 mg PO QHS #90 tab 07/23/19 clopidogrel 75 mg tablet 75 mg PO DAILY #90 tab 07/23/19 lisinopril 20 mg tablet 20 mg PO DAILY #90 tab 07/23/19 metoprolol tartrate 25 mg tablet 25 mg PO BID #180 tab 07/23/19 isosorbide mononitrate 60 mg 60 mg PO DAILY #90 tab 08/05/19 tablet,extended release 24 hr Past Medical History (Chronic Problems): Chronic Problems (Last Reviewed 03/18/20 @ 19:[address] 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 Elana Saravia DO) Mother Heart disease History Items: Heart Disease Lives: With Family Smoking Status: Current every day smoker Tobacco Use: Cigarettes Alcohol: Occasional Drugs: None Objective: Vital Signs Temp Pulse Resp BP Pulse Ox 98.2 F 98 18 101/77 100 03/18/20 18:45 03/18/20 18:45 03/18/20 18:45 03/18/20 18:45 03/18/20 18:45 Oxygen Flow Rate (L/min) 2 Oxygen Delivery Method Nasal Cannula Weight: 164 lb 0.383 oz Body Mass Index (BMI) 28.1 03/18/20 18:30: WBC 8.6, RBC 4.97, Hgb 14.2, Hct 41.7, MCV 83.9, MCH 28.6, MCHC 34.1, Plt Count 224, MPV 11.8, Immature Gran % (Auto) 0.300, Neut % (Auto) 44.5 L, Lymph % (Auto) 45.0 H, D[place] % (Auto) 8.0, Eos % (Auto) 1.6, Baso % (Auto) 0.6, Absolute Neuts (auto) 3.8, Nucleated RBC % 0 03/18/20 18:30: PT 13.1, INR 1.0, APTT 26.7 03/18/20 18:30: Sodium 137, Potassium 3.5, Chloride 107, Carbon Dioxide 24.0, Anion Gap 6, BUN 11, Creatinine 0.67, Est GFR (MDRD) Af Amer 119, Est GFR (MDRD) Non-Af 98, BUN/Creatinine Ratio 16.3, Glucose 287 H, Calcium 9.1, Troponin I 4.890 H* Rhythm: EKG: ECHO: Stress Test: Cardiac Cath: PCI: CT Surgery: Holter monitor: EPS: PPM: CXR: Chest CT Scan:
[2020-03-18] MEDS: 0.9% Normal Saline 1,000 ML 75 ML IV (21:13)
[2020-03-18] MEDS: Ondansetron 4 MG/2 ML Vial IV (21:13)
[2020-03-18] MEDS: Insulin Lispro 100 UNIT/ML INSULN.PEN SC (21:29)
[2020-03-18] MEDS: Atorvastatin Calcium 80 MG Tablet PO (23:00)
[2020-03-18 23:05] LABS: Bedside Glucose 309 mg/dL (70-110)
[2020-03-19] VITALS (25 sets, daily range): BP systolic 87–122; BP diastolic 50–85; PULSE 73–95; RESP 12–20; TEMP 36.2–37.2; O2SAT 95–99
[2020-03-19 04:33] LABS: Hematocrit 37.6 % (37-47); Hemoglobin 12.7 g/dL (12.0-15.0); Mean Corp Hgb Conc 33.8 g/dL (32-36); Mean Corpuscular Hgb 28.5 pg (27.0-32.0); Mean Corpuscular Volume 84.5 fL (81-99); Mean Platelet Vol. 11.5 fl (6.2-12.0); Platelet Count 178 K/mm3 (150-450); RBC Distribution Width SD 39.8 fl (35.1-43.9); Red Blood Count 4.45 M/mm3 (4.2-5.4)
[2020-03-19 05:07] LABS: ALB/GLOB Ratio 0.9 RATIO (0.9-2.4); AST(SGOT) 57 U/L (15-37); Alanine Aminotransfer ALT/SGPT 21 U/L (13-56); Alkaline Phosphatase 68 U/L (45-117); Anion Gap 6 (5-15); BUN 9 mg/dL (7-18); BUN/Creat Ratio 15.5 RATIO (10-20); Calcium,Total 8.6 mg/dL (8.5-10.1); Chloride 108 mmol/L (98-107); Cholesterol 142 mg/dL (200); Creatinine, Serum 0.58 mg/dL (0.55-1.02); EST Glomerular Filtration Rate 117 mL/min (>60); Est Glom Filt Rate - Afr Amer 142 mL/min (>60); Globulin 3.2 g/dL (2.2-4.2); Glucose 281 mg/dL (74-106); High Density Lipoprotein 29 mg/dL; Magnesium 1.7 mg/dL (1.6-2.6); Phosphorus 3.2 mg/dL (2.5-4.9); Potassium 3.4 mmol/L (3.5-5.1); Protein, Total 6.2 g/dL (6.4-8.2); Sodium Level 139 mmol/L (136-145); Thyroid Stim Hormone (TSH) 0.75 uIU/mL (0.358-3.74); Triglycerides 149 mg/dL; Very Low Density Lipoprotein 30 mg/dL (5-40)
--- NOTE | 2020-03-19 05:55 | EKG12_ITS ---
Test Reason : POST PCI Blood Pressure : / mmHG Vent. Rate : 079 BPM Atrial Rate : 079 BPM P-R Int : 164 ms QRS Dur : 112 ms QT Int : 504 ms P-R-T Axes : 066 022 112 degrees QTc Int : 577 ms AGE AND GENDER SPECIFIC ECG ANALYSIS Normal sinus rhythm Inferior infarct , possibly acute Anterolateral infarct , age undetermined Prolonged QT * ACUTE [place] Abnormal ECG Confirmed by MORENA BRENNER, JOSE ([id number]), graphic editor KINZA THIBODEAUX ([id number]) on 03/20/2020 10:51:17 AM Referred By: LINCOLN Confirmed By:JOSE BERG MD
[2020-03-19 07:27] LABS: Hemoglobin A1c 11.1 % (3.8-5.6)
[2020-03-19 07:51] LABS: Bedside Glucose 229 mg/dL (70-110)
[2020-03-19] MEDS: Insulin Lispro 100 UNIT/ML INSULN.PEN SC ×4 (07:53→21:06)
--- NOTE | 2020-03-19 08:00 | ECHOD_ITS ---
Reason For Study: STEMI, LAD stent. Procedure This was a 2D Doppler, Color Flow transthoracic echocardiogram. Exam performed portable in ICU/CCU. Left Ventricle Moderately dilated left ventricle. The estimated ejection fraction is 35-40 %. Septal [place] : Hypokinetic. Right Ventricle Normal right ventricle. Normal systolic function. Atria Normal left atrium. Normal right atrium. Normal atrial septum. Mitral Valve The mitral valve is structurally normal. No prolapse or stenosis seen. Trivial mitral valve insufficiency. Tricuspid Valve Normal tricuspid valve. Unable to estimate RV systolic pressure due to insufficient tricuspid regurgitant envelope. Aortic Valve Normal aortic valve. Pulmonic Valve The pulmonic valve is not well visualized. Great Vessels Normal aortic root. Normal arch. Pericardium/Pleural No pericardial effusion. MMode/2D Measurements & Calculations LVIDd: 4.6 cm IVSd: 1.2 cm Ao root diam: 2.8 cm LVIDs: 3.5 cm LVPWd: 1.2 cm RVDd: 2.7 cm FS: 23.4 % LAV(MOD-bp): 53.3 ml LA A4 area: 16.5 cm2 LA dimension(2D): 3.7 cm LAV(MOD-bp) Indexed: 29.8 ml/m2 LAV(MOD-sp2): 50.6 ml LAV(MOD-sp4): 52.4 ml RA A4 area: 9.6 cm2 Time Measurements MV dec time: 0.20 sec Doppler Measurements & Calculations MV E max negrito: 68.6 cm/sec Lat Peak E' Negrito: 7.7 cm/sec Med Peak E' Negrito: 4.6 cm/sec MV A max negrito: 115.2 cm/sec E/E' lat: 8.9 E/E' med: 15.0 MV E/A: 0.60 Ao V2 max: 129.1 cm/sec LV V1 max: 121.5 cm/sec PA V2 max: 104.8 cm/sec Ao max P.7 mmHg LV V1 max P.9 mmHg Interpretation Summary The estimated ejection fraction is 35-40 %. Moderately dilated left ventricle. Septal [place] : Hypokinetic Trivial mitral valve insufficiency. Unable to estimate RV systolic pressure due to insufficient tricuspid regurgitant envelope. Ordering Physician: Yaneth^Jocelynn^^^ Referring Physician: NO PCP Performed By: Regina Mohan, ALEXANDRE, RVT
[2020-03-19] MEDS: TICAGRELOR 90 MG TABLET PO ×2 (09:19→21:06)
[2020-03-19] MEDS: Aspirin E.C. 81 MG Tablet PO (09:19)
--- NOTE | 2020-03-19 09:36 | CRPHASE1_ITS ---
Patient Communication Former Patient:: Phase I PHII Cardiac Rehab Discussed with Patient:: Yes Guide to Cardiac Rehab Given to Patient:: Yes Cardiac Rehab Facility Choice List Given to Patient:: Yes Choice Program [facility] CR PHII:: Communication Given to CR Choice Program Other:: Communication Given to CR Crm Analyst:: Jocelynn Wolfe Phase II Cardiac Rehab:: Yes Sessions:: 36 sessions - 3 days/wk, 12 weeks Risk Factors/Lifestyle Smoking Status: Current every day smoker Hx Hypertension: Yes Hx Diabetes Mellitus Type 1: No Hx Diabetes Mellitus Type 2: Yes Hx Dyslipidemia: Yes Hx Obesity: No ETOH: No Caffeine: No Family History: Family History (Last Reviewed 03/18/20 @ 19:[address] Elana Saravia, DO) Mother Heart disease Laboratory Values: Cardiac Rehab Phase I Labs Hemoglobin A1c 11.1 % (3.8-5.6) H 03/19/20 04:25 Triglycerides 149 mg/dL (-199) 03/19/20 04:25 Cholesterol 142 mg/dL (200) 03/19/20 04:25 LDL Cholesterol 83 mg/dL (0-130) 03/19/20 04:25 HDL Cholesterol 29 mg/dL (40-) L 03/19/20 04:25 Cardiac Rehabilitation Info Cardiac Rehabilitation Program Information: Cardiac Rehabilitation is important for patients like you who are recovering from a heart problem. Cardiac rehabilitation programs are recognized as integral to the continued care of the patient with coronary heart disease. The cardiac rehabilitation program is designed to optimize a patient's physical, psychological, and social functioning. Health acute care physical therapist work in cardiac rehabilitation programs and assist you with getting the treatments you need to get stronger and healthier - like exercise, healthy eating habits, and medications. Cardiac rehabilitation has been show to help people with heart problems live longer and have better life enjoyment than people who do not go to cardiac rehabilitation. Please contact the Cardiac Rehabilitation Program at [facility] at in two weeks if you have not heard from them.
--- NOTE | 2020-03-19 09:38 | CRPH1.INSTRU ---
General Education CAD and cardiac anatomy and function:: Patient communicates acknowledgment Explanation of diagnoses and procedures:: Patient communicates acknowledgment Sign/Symptoms of [place]:: Patient communicates acknowledgment Antiplatelet therapy: Patient communicates acknowledgment Smoking Patient Nicotine/Smoking Risk Factors Are:: Cigarettes Recommendations Include:: Smoking cessation strategies/Smoking packet, Participation in a smoking cessation program Nicotine/Smoking Response Code:: Patient communicates acknowledgment Dyslipidemia Patient Dyslipidemia Risk Factors Are:: Total Cholesterol, Triglycerides, HDL, LDL Recommendations Include:: Lipid profile provided, Reviewed NCEP/ATP guidelines, Therapeutic Lifestyle Change dietary guidelines Dyslipidemia Response Code:: Patient communicates acknowledgment Overweight/Obesity Patient Overweight/Obesity Risk Factors Are:: Overweight = 26-29 Recommendations Include:: Weight loss of 5-10%, Reduced calorie diet, Exercise 5-7 times/week Overweight/Obesity:: Patient communicates acknowledgment Hypertension Recommendations Include:: BP <130/80 if diabetic, DASH dietary guidelines, Decrease/maintain normal body weight, Moderation of ETOH Hypertension:: Patient communicates acknowledgment Diabetes Patient Diabetes Risk Factors Are:: Elevated blood sugars Recommendations Include:: Maintain fasting blood sugars 70-110 md/dL, Maintain HgbA1c of 6% or less, Monitor blood sugar as prescribed, Diabetic dietary guidelines Diabetes:: Patient communicates acknowledgment Sedentary Patient Sedentary Risk Factors Are:: Lack of regular exercise Recommendations Include:: Aerobic exercise 5-7 times/week for 20-30 minutes continuously, Benefits of regular exercise, Discussed home walking program, Monitored Outpatient Cardiac Rehab Sedentary Response Code:: Patient communicates acknowledgment Stress Patient Stress Risk Factors Are:: Patient denies stress as a risk factor
--- NOTE | 2020-03-19 10:17 | CASEMGMT ---
Addendum entered by Suri Diaz 03/19/20 20:34: 1410: Brilinta has been e-scribed to [facility]. Call placed to pharmacy and spoke w/Jacquelin for a ríos check. Brilinta savings card has been applied per Jacquelin and cost for 30-day fill will be $0. Per Jacquelin, refills will be $412.55 d/t pt has approx $5,000 deductible. Call placed to Terri @ [facility]. She was made aware of the above. She states she will notify Dr Dominguez so pt can be placed on an alternative more affordable medication after the 30-days. Pt made aware of above as well and to f/u with Dr Dominguez at her next appt, which pt states has been scheduled for in a couple of weeks. Pt provided with script for Glucometer at this time as well. Pt provided this RN CM with her aunt Malik's contact #. She states wishes for Malik to be listed as her 1st contact and her friend, Theresa, to be listed as secondary. Call placed to Corinne in Registration who states will update demographics. Original Note: RN CM LAUNDRY ROOM ATTENDANT CM to room to meet with patient for initial transition planning/care coordination assessment. RN CM introduced self and role at [facility]. Pt voices understanding and consents to assessment at this time. Pt resting in bed in no distress at this time. Pt is A/O at this time and answers all questions appropriately. Care providers, pharmacy, and demographics verified/updated at this time. PCP: No PCP--Recommended pt get established with PCP and she was provided with a list of local PCP's. Specialists: Dr Dominguez-cardiology Preferred Pharmacy: [facility] Insurance:[employer] Prescription Benefit: Pt stated, I'm not sure. Call placed to [facility] pharmacy (where pt typically gets her prescriptions from) and they confirm pt does have RX benefits. Pt to go home on Brilinta. Pt made aware Brilinta savings card will be applied for the 1st 30-days. RN CM advised pt to talk with Dr Dominguez if refills are not affordable to discuss other options with him. Financial: Pt became tearful when ZEYNEP COLUNGA discussed Brilinta savings card with her and co-pay for refills. She states she has just enough to get by most months financially but sometimes does not have enough money for groceries. Pt made aware SW can come in to provide resources and she is agreeable. Living Will/HPOA: [facility] does not have LW or HCPOA . Interested in more information but states does not want to talk with SW at this time to complete paperwork. Provided information on advanced directives and given Social Service rac card with number to call if chooses in the future to utilize [facility] social work for advanced directive completion. Educated patient that, if patient so chooses, can come back to [facility] and meet with a SW as an outpatient to complete health care advanced directives. Patient expresses understanding. LNOK: Mother is still living but lives out of state and pt states they do not get along well. Has several siblings. [facility] would like to have her aunt, Malik Lopze, contacted for emergencies but she is not sure what her phone number is. She states her phone is charging and she can provide her phone number to staff once it is charged. Living Arrangements: Lives alone in 1st floor apt. One step to enter. Independent w/ADL's and IADL's. Transportation: Pt drives. Pt states is not sure how she will get home @ discharge and that she plans to call her aunt to check with her to see if she will be available. DME: Denies using any DME and denies needs. She states she may be interested in getting a glucometer at some point. HHC/SNF: No history of either. Pt wishes to return home and states has no concerns with going home at time of discharge. CM to follow for any further discharge planning/needs. Pt voices no further concerns/needs at this time. Advised pt to ask for CM if any further questions/concerns/needs arise. Voices understanding. PLAN: Home SW consult for financial concerns Dacia ENGEL RN CM
[2020-03-19] MEDS: Metoprolol Tartrate 25 MG Tablet 12.5 MG PO ×2 (11:28→21:05)
[2020-03-19] MEDS: Enoxaparin 40 MG/0.4 ML Syringe SC (11:29)
[2020-03-19] MEDS: 0.9% Normal Saline 1,000 ML 75 ML IV (12:12)
[2020-03-19] MEDS: Morphine 2 MG/ML Syringe IV (12:15)
[2020-03-19 12:20] LABS: Bedside Glucose 311 mg/dL (70-110)
--- NOTE | 2020-03-19 12:37 | PN_ITS ---
Patient Problems: Active and Suspected Problems (Last Reviewed 03/18/20 @ 19:[address] Elana Saravia DO) STEMI (ST elevation myocardial infarction) (Acute) Subjective: Doing well, her wrist is little bit sore but otherwise her chest pain is resolved Vitals/I&O's: Vital Signs Temp Pulse Resp BP Pulse Ox 97.6 F L 89 20 H 122/77 H 98 03/19/20 04:00 03/19/20 11:28 03/19/20 09:00 03/19/20 11:28 03/19/20 09:00 Oxygen Flow Rate (L/min) 2 Oxygen Delivery Method Room Air Weight: 162 lb 14.746 oz Body Mass Index (BMI) 27.6 Intake and Output for Last 24 Hours 03/17/20 03/18/20 03/19/20 23:59 23:59 23:59 Intake Total 120 / 120 1220 / 1220 Output Total 1800 / 1800 200 / 200 Balance -1680 / -1680 1020 / 1020 General: Alert, Oriented x3, Cooperative, No apparent distress HEENT: Atraumatic, PERRLA, EOMI, Normocephalic Oral: Moist Mucosa Neck: Supple, No JVD Lungs: Clear to auscultation, Normal air movement, No rhonchi, No wheeze, No rales Cardiovascular: Regular rate, Regular Rhythm, Normal S1, Normal S2, No murmurs Abdomen: Soft, Non Tender, Non-Distended, No Hepato-splenomegaly Extremities: No edema, Capillary Refill Less than 3 Seconds Skin: No rashes, No breakdown Neurological: Neuro grossly intact, Sensory exam intact to light touch and pain Psych/Mental Status: Normal Affect, Appropriate Laboratory Results 03/18/20 18:30: WBC 8.6, RBC 4.97, Hgb 14.2, Hct 41.7, MCV 83.9, MCH 28.6, MCHC 34.1, RDW Std Deviation 39.0, RDW Coeff of Maria R 12.9, Plt Count 224, MPV 11.8, Immature Gran % (Auto) 0.300, Neut % (Auto) 44.5 L, Lymph % (Auto) 45.0 H, Mccone % (Auto) 8.0, Eos % (Auto) 1.6, Baso % (Auto) 0.6, Absolute Neuts (auto) 3.8, Absolute Lymphs (auto) 3.88, Nucleated RBC % 0 03/18/20 18:30: PT 13.1, INR 1.0, APTT 26.7 03/18/20 18:30: Sodium 137, Potassium 3.5, Chloride 107, Carbon Dioxide 24.0, Anion Gap 6, BUN 11, Creatinine 0.67, Estim Creat Clear Calc 86.74, Est GFR (MDRD) Af Amer 119, Est GFR (MDRD) Non-Af 98, BUN/Creatinine Ratio 16.3, Glucose 287 H, Calcium 9.1, Troponin I 4.890 H* 03/18/20 21:10: Troponin I 7.060 H* 03/18/20 21:13: POC Glucose 309 H 03/19/20 00:52: Troponin I 12.500 H* 03/19/20 04:25: WBC 6.0, RBC 4.45, Hgb 12.7, Hct 37.6, MCV 84.5, MCH 28.5, MCHC 33.8, RDW Std Deviation 39.8, RDW Coeff of Maria R 13.0, Plt Count 178, MPV 11.5 03/19/20 04:25: Sodium 139, Potassium 3.4 L, Chloride 108 H, Carbon Dioxide 25.0, Anion Gap 6, BUN 9, Creatinine 0.58, Estim Creat Clear Calc 100.20, Est GFR (MDRD) Af Amer 142, Est GFR (MDRD) Non-Af 117, BUN/Creatinine Ratio 15.5, Glucose 281 H, Calcium 8.6, Phosphorus 3.2, Magnesium 1.7, Total Bilirubin 0.60, AST 57 H, ALT 21, Alkaline Phosphatase 68, Total Protein 6.2 L, Albumin 3.0 L, Globulin 3.2, Albumin/Globulin Ratio 0.9, Triglycerides 149, Cholesterol 142, LDL Cholesterol 83, VLDL Cholesterol 30, HDL Cholesterol 29 L, TSH 0.75 03/19/20 04:25: Hemoglobin A1c 11.1 H 03/19/20 07:46: POC Glucose 229 H 03/19/20 12:15: POC Glucose 311 H Current Medications Acetaminophen (Acetaminophen 325 Mg Tablet) 650 mg PO Q6H PRN PRN PRN Reason: Pain Score 1-10/Temp > 100.7 F Al Hydroxide/Mg Hydroxide (Mag Hydrox/Al Hydrox/Simeth 30 Ml Udc) 30 ml PO Q6H PRN PRN PRN Reason: Gastric Burning Albuterol Sulfate (Albuterol 2.5 Mg/3 Ml Vial.Neb.) 2.5 mg INHALATION Q2H PRN PRN PRN Reason: SOB/Wheezing Aspirin (Aspirin E.C. 81 Mg Tablet) 81 mg PO DAILY@0800 [facility] Last Admin: 03/19/20 09:19 Dose: 81 mg Documented by: Atorvastatin Calcium (Atorvastatin Calcium 80 Mg Tablet) 80 mg PO QHS [facility] Last Admin: 03/18/20 23:00 Dose: 80 mg Documented by: Atropine Sulfate (Atropine Sulfate 1 Mg/10 Ml Syringe) 0.5 mg IV UD PRN PRN Reason: HR <50 bpm Enoxaparin Sodium (Enoxaparin 40 Mg/0.4 Ml Syringe) 40 mg SC DAILY [facility] Last Admin: 03/19/20 11:29 Dose: 40 mg Documented by: Heparin Sodium (Beef Lung) (Heparin Lock 500 Unit/5 Ml In 10 Ml Syringe) 500 unit IV UD PRN PRN Reason: HEPARIN FLUSH Sodium Chloride () 1,000 mls @ 15 mls/hr IV .Q48H [facility] Last Admin: 03/18/20 20:58 Dose: Not Given Documented by: Sodium Chloride () 1,000 mls @ 75 mls/hr IV .[id number] [facility] Stop: 03/20/20 01:29 Last Admin: 03/19/20 12:12 Dose: 75 mls/hr Documented by: Insulin Human Lispro (Insulin Lispro 100 Unit/Ml Insuln.Pen) 0 unit SC [facility]; Protocol Last Admin: 03/19/20 12:16 Dose: 5 u Documented by: Labetalol HCl (Labetalol (Prefilled) 20 Mg/4 Ml) 5 mg IV X1 PRN PRN Reason: SBP >160 when pulling sheath Lisinopril (Lisinopril 10 Mg Tablet) 10 mg PO DAILY [facility] Last Admin: 03/19/20 11:16 Dose: Not Given Documented by: Melatonin (Melatonin 3 Mg Tablet) 3 mg PO QHS PRN PRN PRN Reason: INSOMNIA Metoprolol Tartrate (Metoprolol Tartrate 25 Mg Tablet) 12.5 mg PO BID [facility] Last Admin: 03/19/20 11:28 Dose: 12.5 mg Documented by: Nitroglycerin (Nitroglycerin (Inpatient Use) 0.4 Mg Tab.Subl) 0.4 mg SUBLINGUAL Q5M PRN PRN Reason: CARDIAC/CHEST PAIN Ondansetron HCl (Ondansetron 4 Mg/2 Ml Vial) 4 mg IV Q8H PRN PRN PRN Reason: NAUSEA/VOMITING Last Admin: 03/18/20 21:13 Dose: 4 mg Documented by: Senna/Docusate Sodium (Senna/Docusate Sodium 1 Tablet) 2 tablet PO BID PRN PRN Reason: Constipation Sodium Chloride (0.9% Normal Saline 500 Ml Iv.Soln.) 500 ml IV BOLUS PRN PRN Reason: VASO-VAGAL PROTOCOL Ticagrelor (Ticagrelor 90 Mg Tablet) 90 mg PO BID [facility] Last Admin: 03/19/20 09:19 Dose: 90 mg Documented by: STROKE Vital Signs/Narrative: Vital Signs Pulse Resp BP BP Pulse Ox 03/19/20 11:28 89 122/77 H 03/19/20 09:00 92 20 H 98/50 L 98 Medical Necessity - Tobacco Use Smoking Status: Current every day smoker Tobacco Use: Cigarettes Assessment/Plan All Active Problems (Last Reviewed 03/18/20 @ 19:[address] Elana Saravia, DO) Thickening of wall of gallbladder (Acute) STEMI (ST elevation myocardial infarction) (Acute) Exertional angina (Acute) Chest pain (Resolved) Unstable angina (Resolved) 1. Acute inferior STEMI/HTN/HLD/nicotine dependence/ischemic cardiomyopathy -She was taken to the [facility] on admission and had a stent placed in her LAD -Continue with her home blood pressure medications, appreciate cardiology in medical management -Continue with aspirin and Brilinta, will discontinue her Plavix -Continue with Lipitor at 80 mg nightly -Echo with an EF of 35 to 40% -Discussed tobacco cessation 2. DM 2 -Continue with insulin, she does not appear to be on any home medications and her A1c on admission was 11.1. -We will discharge her likely on Metformin with outpatient follow-up DVT: Lovenox Inpatient E&M: [id number] [facility] Hosp L2
--- NOTE | 2020-03-19 12:58 | PN.CARD_ITS ---
Subjectve: This patient seen and evaluated today at bedside. Post recent anteroseptal and lateral CO A cardiac care plan discussed in detail with the nursing staff She had mild symptoms of chest pain with no significant change in the electrocardiogram from previous Cardiac examination essentially normal. Cardiac telemetry reveals underlying normal sinus Review of the cardiac biomarkers/high sensitive troponin showed mild elevation around 12.5. CBC and renal function remained stable. Assessment and plan;. Patient presented with the ongoing symptoms of chest pain and recent anterior CO with the Q waves noted in the anterolateral lead with T wave inversion Also has old inferior CO with Q waves in the inferior lead The cardiac catheterization revealed occluded proximal RCA stent and she had occluded mid LAD with successful PCI and stent using drug-eluting stent Patient had a lesion in the first OM which is large vessel as well as the mid to distal left circumflex On review of the echocardiogram today LV function ejection fraction around 35 to?40% with anteroapical and distal septal hypokinesia There is no pericardial effusion. Current medication discussed in detail patient will be on dual antiplatelet therapy with low-dose aspirin 81/Brilinta 90 mg twice daily Be on a statin atorvastatin 40 mg Rest of the medication will include a beta-kiel metoprolol low-dose decreased to 12.5 twice daily as well will be on lisinopril as tolerated. Patient will be scheduled for cardiac rehab and if she remains stable plan will be to discharge home tomorrow and she will follow-up with Dr. Dominguez her primary assembler product for continuation of cardiac care plan I discussed the plan with Dr. Dominguez in regard to the PCI of the OM1 and left circumflex which can be set up as an outpatient. Objective: Vital Signs Temp Pulse Resp BP Pulse Ox 97.6 F L 89 20 H 122/77 H 98 03/19/20 04:00 03/19/20 11:28 03/19/20 09:00 03/19/20 11:28 03/19/20 09:00 Oxygen Flow Rate (L/min) 2 Oxygen Delivery Method Room Air Weight: 162 lb 14.746 oz Body Mass Index (BMI) 27.6 Intake and Output for Last 24 Hours 03/17/20 03/18/20 03/19/20 23:59 23:59 23:59 Intake Total 120 / 120 1220 / 1220 Output Total 1800 / 1800 200 / 200 Balance -1680 / -1680 1020 / 1020 03/18/20 18:30: WBC 8.6, RBC 4.97, Hgb 14.2, Hct 41.7, MCV 83.9, MCH 28.6, MCHC 34.1, Plt Count 224, MPV 11.8, Immature Gran % (Auto) 0.300, Neut % (Auto) 44.5 L, Lymph % (Auto) 45.0 H, Winn % (Auto) 8.0, Eos % (Auto) 1.6, Baso % (Auto) 0.6, Absolute Neuts (auto) 3.8, Nucleated RBC % 0 03/18/20 18:30: PT 13.1, INR 1.0, APTT 26.7 03/18/20 18:30: Sodium 137, Potassium 3.5, Chloride 107, Carbon Dioxide 24.0, Anion Gap 6, BUN 11, Creatinine 0.67, Est GFR (MDRD) Af Amer 119, Est GFR (MDRD) Non-Af 98, BUN/Creatinine Ratio 16.3, Glucose 287 H, Calcium 9.1, Troponin I 4.890 H* 03/18/20 21:10: Troponin I 7.060 H* 03/19/20 00:52: Troponin I 12.500 H* 03/19/20 04:25: WBC 6.0, RBC 4.45, Hgb 12.7, Hct 37.6, MCV 84.5, MCH 28.5, MCHC 33.8, Plt Count 178, MPV 11.5 03/19/20 04:25: Sodium 139, Potassium 3.4 L, Chloride 108 H, Carbon Dioxide 25.0, Anion Gap 6, BUN 9, Creatinine 0.58, Est GFR (MDRD) Af Amer 142, Est GFR (MDRD) Non-Af 117, BUN/Creatinine Ratio 15.5, Glucose 281 H, Calcium 8.6, Phosphorus 3.2, Magnesium 1.7, Total Bilirubin 0.60, Triglycerides 149, Cholesterol 142, LDL Cholesterol 83, VLDL Cholesterol 30, HDL Cholesterol 29 L 03/19/20 04:25: Hemoglobin A1c 11.1 H Rhythm: Normal sinus rhythm EKG: Old inferior CO and a recent anterior CO ECHO: Anteroapical and distal septal hypokinesia with ejection fraction in the range of 35-40% Trivial mitral regurgitation, no pericardial effusion Medical Necessity - Tobacco Use Smoking Status: Current every day smoker Tobacco Use: Cigarettes
--- NOTE | 2020-03-19 14:48 | CASEMGMT ---
Social Work SW received a referral from RNCM and Fundraising Director that pt was tearful due to financial concerns. SW met with pt in room and introduced self and role of SW. 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 Pt stating that although she does work, she does not have enough money for groceries and medical bills. SW inquired about SW provided resources for [facility], [employer] and a list of food pantries and organizations in [facility] that provide prepared meals throughout the week. SW encouraged pt to contact [employer] for assessment on assistance and pt refuses stating she knows that they will tell her she makes too much money. SW also spoke with pt about PCP. Pt stating she does not have a PCP and cannot afford to go to PCP although she does have medical insurance. SW provided written information on [facility] Financial Assistance Program as well as [facility]. SW reinforced importance to continue with medical care. Pt tearful throughout conversation when talking about finances and pt also opening up about feelings of frustration and disappointment with current life circumstances. YOLIS inquired if pt has ever seen a counselor. Pt confirms that she did go to [facility] for counseling for a short time but did not find this helpful. SW encouraged pt to try again with a different counselor and pt declined. SW offered emotional support. YOLIS will remain available should other needs arise. ADEBAYO Pérez
[2020-03-19] MEDS: Nitroglycerin (INPATIENT USE) 0.4 MG TAB.SUBL SUBLINGUAL (16:19)
[2020-03-19 16:51] LABS: Bedside Glucose 297 mg/dL (70-110)
[2020-03-19] MEDS: Acetaminophen 325 MG Tablet 650 MG PO (18:54)
[2020-03-19] MEDS: Mag Hydrox/Al Hydrox/Simeth 30 ML UDC PO (18:54)
[2020-03-19] MEDS: Atorvastatin Calcium 80 MG Tablet PO (21:06)
[2020-03-19 21:15] LABS: Bedside Glucose 286 mg/dL (70-110)
--- NOTE | 2020-03-19 22:57 | PCS.PANDOC ---
PANDEMIC DOCUMENTATION INITIATED: Date: 03/18/2020 Time: 2029
[2020-03-20] VITALS (15 sets, daily range): BP systolic 105–136; BP diastolic 59–76; PULSE 71–85; RESP 16–18; TEMP 36.3–36.7; O2SAT 95–100
[2020-03-20 06:00] LABS: Anion Gap 5 (5-15); BUN 13 mg/dL (7-18); BUN/Creat Ratio 24.9 RATIO (10-20); Calcium,Total 8.5 mg/dL (8.5-10.1); Chloride 109 mmol/L (98-107); Creatinine, Serum 0.52 mg/dL (0.55-1.02); EST Glomerular Filtration Rate 132 mL/min (>60); Est Glom Filt Rate - Afr Amer 159 mL/min (>60); Estimated Creatinine Clearance 111.77 ml/min; Glucose 232 mg/dL (74-106); Potassium 4.3 mmol/L (3.5-5.1); Sodium Level 137 mmol/L (136-145)
[2020-03-20] MEDS: Insulin Lispro 100 UNIT/ML INSULN.PEN SC ×4 (07:05→21:54)
[2020-03-20 08:46] LABS: Bedside Glucose 195 mg/dL (70-110)
[2020-03-20] MEDS: TICAGRELOR 90 MG TABLET PO ×2 (09:51→21:48)
[2020-03-20] MEDS: Metoprolol Tartrate 25 MG Tablet 12.5 MG PO ×2 (09:51→21:48)
[2020-03-20] MEDS: Aspirin E.C. 81 MG Tablet PO (09:51)
[2020-03-20] MEDS: Lisinopril 10 MG Tablet PO (09:52)
[2020-03-20] MEDS: 0.9% Saline Lock 10 ML Syringe IV (09:52)
[2020-03-20] MEDS: Enoxaparin 40 MG/0.4 ML Syringe SC (09:52)
--- NOTE | 2020-03-20 10:00 | EKG12_ITS ---
Test Reason : AM EKG Blood Pressure : / mmHG Vent. Rate : 069 BPM Atrial Rate : 069 BPM P-R Int : 146 ms QRS Dur : 108 ms QT Int : 476 ms P-R-T Axes : 058 021 099 degrees QTc Int : 510 ms Normal sinus rhythm Inferior infarct , age undetermined Anterolateral infarct , age undetermined Prolonged QT Abnormal ECG Confirmed by MORENA BRENNER, JOSE ([id number]), video news editor KINZA THIBODEAUX ([id number]) on 03/20/2020 10:52:26 AM Referred By: DR ESTES Confirmed By:JOSE BERG MD
--- NOTE | 2020-03-20 10:02 | EKG12_ITS ---
Test Reason : CHEST PAIN Blood Pressure : / mmHG Vent. Rate : 087 BPM Atrial Rate : 087 BPM P-R Int : 132 ms QRS Dur : 110 ms QT Int : 480 ms P-R-T Axes : 072 046 112 degrees QTc Int : 577 ms AGE AND GENDER SPECIFIC ECG ANALYSIS Normal sinus rhythm Inferior infarct , recent Anterolateral infarct , age undetermined Prolonged QT Confirmed by GAYLA BRENNER, SADIQ ([id number]), fan mail editor JOO SUERO ([id number]) on 03/24/2020 8:34:45 AM Referred By: Confirmed By:SADIQ SHUKLA MD
--- NOTE | 2020-03-20 10:14 | EKG12_ITS ---
Test Reason : CHEST PAINS Blood Pressure : / mmHG Vent. Rate : 080 BPM Atrial Rate : 080 BPM P-R Int : 164 ms QRS Dur : 110 ms QT Int : 446 ms P-R-T Axes : 080 058 107 degrees QTc Int : 514 ms AGE AND GENDER SPECIFIC ECG ANALYSIS Normal sinus rhythm Right atrial enlargement Inferior infarct , possibly acute Anterolateral infarct , age undetermined Confirmed by GAYLA BRENNER, SADIQ ([id number]), videotape editor JOO SUERO ([id number]) on 03/24/2020 8:40:59 AM Referred By: Bola ESTES Confirmed By:SADIQ SHULKA MD
[2020-03-20] MEDS: Nitroglycerin (INPATIENT USE) 0.4 MG TAB.SUBL SUBLINGUAL (10:43)
--- NOTE | 2020-03-20 10:50 | DCINST_ITS ---
- Discharge Diagnoses Current Active Problems: Current Active and Chronic Problems (Last Reviewed 03/18/20 @ 19:[address] Elana Saravia DO) STEMI (ST elevation myocardial infarction) (Acute) You will use the following diet at home:: Cardiac Your food should be the consistency of: Regular Your liquids should be the consistency of: Regular/Thin Discharge Activity: Return to Normal Activity Call your doctor if you observe: Fever of 101 or Higher, Shortness of breath, Dizziness, Fainting spells, Swelling in the ankles, Chest pain, Increased palpitations (irregular heartbeat) Allergies/Adverse Reactions: Allergies Penicillins [PCN] Allergy (Verified 10/04/19 08:38) Other INTENSIVIES WHAT IT IS SUPPOSED TO BE TREATING Medications to take at Discharge Aspirin E.C. [Ecotrin] 81 mg PO DAILY@0800 tab 12/15/17 atorvastatin 80 mg tablet 80 mg PO QHS #90 tab 07/23/19 Ticagrelor [Brilinta] 90 mg PO BID #60 tab 03/19/20 Isosorbide Mononitrate [Isosorbide Mononitrate ER] 60 mg PO DAILY #30 tab.er.24h 03/20/20 Lisinopril 10 mg PO DAILY #90 tab 03/20/20 Metoprolol Tartrate 12.5 mg PO BID #180 tab 03/20/20 The following prescriptions were given: Ticagrelor [Brilinta] 90 mg PO BID #60 tab Transmission Status: Received by [facility] Isosorbide Mononitrate [Isosorbide Mononitrate ER] 60 mg PO DAILY #30 tab.er.24h Primary Care Physician: Care Physician,No Primary [Primary Care Provider] - Please follow up with your Primary Care Physician in: 3-5 days Test Results: Test results from this visit will be discussed in further detail at your follow- up appointment, if applicable. Please Follow Up With: Aditya Dominguez MD When: 2 weeks as scheduled
--- NOTE | 2020-03-20 11:07 | PCM.PN.HOSP ---
Patient Problems: Active and Suspected Problems (Last Reviewed 03/18/20 @ 19:[address] Elana Saravia, DO) STEMI (ST elevation myocardial infarction) (Acute) Subjective: Still with some chest pain which is to be expected secondary to her other vessels I will likely need intervention in the future. EKG obtained by nursing staff was unremarkable compared to previous Vitals/I&O's: Vital Signs Temp Pulse Resp BP Pulse Ox 98.0 F 80 18 136/76 H 100 03/20/20 10:40 03/20/20 10:43 03/20/20 10:40 03/20/20 10:43 03/20/20 10:40 Oxygen Flow Rate (L/min) 2 Oxygen Delivery Method Room Air Weight: 168 lb 6.931 oz Body Mass Index (BMI) 27.6 Intake and Output for Last 24 Hours 03/18/20 03/19/20 03/20/20 23:59 23:59 23:59 Intake Total 120 / 120 1580 / 1580 1400 / 1400 Output Total 1800 / 1800 200 / 200 Balance -1680 / -1680 1380 / 1380 1400 / 1400 General: Alert, Oriented x3, Cooperative, No apparent distress HEENT: Atraumatic, PERRLA, EOMI, Normocephalic Oral: Moist Mucosa Neck: Supple, No JVD Lungs: Clear to auscultation, Normal air movement, No rhonchi, No wheeze, No rales Cardiovascular: Regular rate, Regular Rhythm, Normal S1, Normal S2, No murmurs Abdomen: Soft, Non Tender, Non-Distended, No Hepato-splenomegaly Extremities: No edema, Capillary Refill Less than 3 Seconds Skin: No rashes, No breakdown Neurological: Neuro grossly intact, Sensory exam intact to light touch and pain Psych/Mental Status: Normal Affect, Appropriate Laboratory Results 03/19/20 12:15: POC Glucose 311 H 03/19/20 16:45: POC Glucose 297 H 03/19/20 21:03: POC Glucose 286 H 03/20/20 04:44: Sodium 137, Potassium 4.3, Chloride 109 H, Carbon Dioxide 23.0, Anion Gap 5, BUN 13, Creatinine 0.52 L, Estim Creat Clear Calc 111.77, Est GFR (MDRD) Af Amer 159, Est GFR (MDRD) Non-Af 132, BUN/Creatinine Ratio 24.9 H, Glucose 232 H, Calcium 8.5 03/20/20 07:04: POC Glucose 195 H Current Medications Acetaminophen (Acetaminophen 325 Mg Tablet) 650 mg PO Q6H PRN PRN PRN Reason: Pain Score 1-10/Temp > 100.7 F Last Admin: 03/19/20 18:54 Dose: 650 mg Documented by: Al Hydroxide/Mg Hydroxide (Mag Hydrox/Al Hydrox/Simeth 30 Ml Udc) 30 ml PO Q6H PRN PRN PRN Reason: Gastric Burning Last Admin: 03/19/20 18:54 Dose: 30 ml Documented by: Albuterol Sulfate (Albuterol 2.5 Mg/3 Ml Vial.Neb.) 2.5 mg INHALATION Q2H PRN PRN PRN Reason: SOB/Wheezing Aspirin (Aspirin E.C. 81 Mg Tablet) 81 mg PO DAILY@0800 [facility] Last Admin: 03/20/20 09:51 Dose: 81 mg Documented by: Atorvastatin Calcium (Atorvastatin Calcium 80 Mg Tablet) 80 mg PO QHS [facility] Last Admin: 03/19/20 21:06 Dose: 80 mg Documented by: Atropine Sulfate (Atropine Sulfate 1 Mg/10 Ml Syringe) 0.5 mg IV UD PRN PRN Reason: HR <50 bpm Enoxaparin Sodium (Enoxaparin 40 Mg/0.4 Ml Syringe) 40 mg SC DAILY [facility] Last Admin: 03/20/20 09:52 Dose: 40 mg Documented by: Heparin Sodium (Beef Lung) (Heparin Lock 500 Unit/5 Ml In 10 Ml Syringe) 500 unit IV UD PRN PRN Reason: HEPARIN FLUSH Sodium Chloride () 1,000 mls @ 15 mls/hr IV .Q48H [facility] Last Admin: 03/18/20 20:58 Dose: Not Given Documented by: Insulin Human Lispro (Insulin Lispro 100 Unit/Ml Insuln.Pen) [address] [facility]; Protocol Last Admin: 03/20/20 07:05 Dose: 2 u Documented by: Isosorbide Mononitrate (Isosorbide Mononitrate 30 Mg Tablet) 30 mg PO DAILY [facility] Labetalol HCl (Labetalol (Prefilled) 20 Mg/4 Ml) 5 mg IV X1 PRN PRN Reason: SBP >160 when pulling sheath Lisinopril (Lisinopril 10 Mg Tablet) 10 mg PO DAILY [facility] Last Admin: 03/20/20 09:52 Dose: 10 mg Documented by: Melatonin (Melatonin 3 Mg Tablet) 3 mg PO QHS PRN PRN PRN Reason: INSOMNIA Metoprolol Tartrate (Metoprolol Tartrate 25 Mg Tablet) 12.5 mg PO BID [facility] Last Admin: 03/20/20 09:51 Dose: 12.5 mg Documented by: Morphine Sulfate (Morphine 2 Mg/Ml Syringe) 2 mg IV Q4H PRN PRN PRN Reason: chest pain Nitroglycerin (Nitroglycerin (Inpatient Use) 0.4 Mg Tab.Subl) 0.4 mg SUBLINGUAL Q5M PRN PRN Reason: CARDIAC/CHEST PAIN Last Admin: 03/20/20 10:43 Dose: 0.4 mg Documented by: Ondansetron HCl (Ondansetron 4 Mg/2 Ml Vial) 4 mg IV Q8H PRN PRN PRN Reason: NAUSEA/VOMITING Last Admin: 03/18/20 21:13 Dose: 4 mg Documented by: Senna/Docusate Sodium (Senna/Docusate Sodium 1 Tablet) 2 tablet PO BID PRN PRN Reason: Constipation Sodium Chloride (0.9% Normal Saline 500 Ml Iv.Soln.) 500 ml IV BOLUS PRN PRN Reason: VASO-VAGAL PROTOCOL Sodium Chloride (0.9% Saline Lock 10 Ml Syringe) 10 - 40 ml IV UD PRN PRN Reason: SALINE FLUSH Last Admin: 03/20/20 09:52 Dose: 10 ml Documented by: Ticagrelor (Ticagrelor 90 Mg Tablet) 90 mg PO BID [facility] Last Admin: 03/20/20 09:51 Dose: 90 mg Documented by: STROKE Vital Signs/Narrative: Vital Signs Temp Pulse Resp BP Pulse Ox 03/20/20 10:43 80 136/76 H 03/20/20 10:40 98.0 F 80 18 136/76 H 100 03/20/20 09:51 76 134/73 H 03/20/20 09:35 97.9 F 76 18 134/73 H 97 03/20/20 07:15 95 Medical Necessity - Tobacco Use Smoking Status: Current every day smoker Tobacco Use: Cigarettes Assessment/Plan All Active Problems (Last Reviewed 03/18/20 @ 19:[address] Elana Saravia DO) Thickening of wall of gallbladder (Acute) STEMI (ST elevation myocardial infarction) (Acute) Exertional angina (Acute) Chest pain (Resolved) Unstable angina (Resolved) 1. Acute inferior STEMI/HTN/HLD/nicotine dependence/ischemic cardiomyopathy -She was taken to the [facility] on admission and had a stent placed in her LAD -Continue with her home blood pressure medications, appreciate cardiology in medical management -Continue with aspirin and Brilinta, will discontinue her Plavix. She will be able to take the Brilinta for about a month now-switch back to Plavix secondary to cost -Continue with Lipitor at 80 mg nightly, continue with her blood pressure medications, her lisinopril was at 10 and her metoprolol to 12.5, will restart her Imdur at 60 mg daily. -Because of her continued slight chest pain, will obtain another troponin and keep her overnight -Echo with an EF of 35 to 40% -Discussed tobacco cessation 2. DM 2 -Continue with insulin, she does not appear to be on any home medications and her A1c on admission was 11.1. -We will discharge her likely on Metformin with outpatient follow-up DVT: Juanisnox Inpatient E&M: 67140 Subs Hosp L2
--- NOTE | 2020-03-20 11:08 | PN.CARD_ITS ---
Subjectve: 50-year-old patient, with a recent anterolateral and apical myocardial infarction Underwent PCI and stent of the LAD Today she was seen at bedside along with the nursing staff and she had symptoms of left upper chest discomfort and EKG showed no significant change from prior. Cardiac examination essentially normal Her environmental monitoring specialist showed underlying normal sinus rhythm She lives by herself and she had post GA angina we will treat with medical therapy with the beta-kiel, long-acting nitrate Imdur, dual antiplatelet aspirin Brilinta. I will continue to monitor and follow-up clinically with frequent series of cardiac markers/high sensitive troponin. We will keep over the night on cardiac telemetry and reevaluate Objective: Vital Signs Temp Pulse Resp BP Pulse Ox 98.0 F 80 18 136/76 H 100 03/20/20 10:40 03/20/20 10:43 03/20/20 10:40 03/20/20 10:43 03/20/20 10:40 Oxygen Flow Rate (L/min) 2 Oxygen Delivery Method Room Air Weight: 168 lb 6.931 oz Body Mass Index (BMI) 27.6 Intake and Output for Last 24 Hours 03/18/20 03/19/20 03/20/20 23:59 23:59 23:59 Intake Total 120 / 120 1580 / 1580 1400 / 1400 Output Total 1800 / 1800 200 / 200 Balance -1680 / -1680 1380 / 1380 1400 / 1400 03/20/20 04:44: Sodium 137, Potassium 4.3, Chloride 109 H, Carbon Dioxide 23.0, Anion Gap 5, BUN 13, Creatinine 0.52 L, Est GFR (MDRD) Af Amer 159, Est GFR (MDRD) Non-Af 132, BUN/Creatinine Ratio 24.9 H, Glucose 232 H, Calcium 8.5 Rhythm: Cardiac rhythm is normal sinus rhythm. EKG: Repeat EKG showed evidence of old inferior myocardial infarction with recent anterior GA. ECHO: Echocardiogram this admission showed anteroapical and distal septal hypokinesia with ejection fraction in the range of 35-40% Trivial mitral regurgitation noted. Medical Necessity - Tobacco Use Smoking Status: Current every day smoker Tobacco Use: Cigarettes
[2020-03-20] MEDS: Isosorbide Mononitrate 30 MG Tablet PO (12:15)
[2020-03-20 12:51] LABS: Bedside Glucose 305 mg/dL (70-110)
[2020-03-20 16:46] LABS: Bedside Glucose 340 mg/dL (70-110)
[2020-03-20] MEDS: Atorvastatin Calcium 80 MG Tablet PO (21:48)
[2020-03-20 22:01] LABS: Bedside Glucose 307 mg/dL (70-110)
[2020-03-21 03:00] VITALS: PULSE 73
[2020-03-21 03:30] VITALS: BP 121/75; PULSE 75; RESP 17; TEMP 36.5; O2SAT 97
[2020-03-21] MEDS: Insulin Lispro 100 UNIT/ML INSULN.PEN SC (06:39)
[2020-03-21 06:46] LABS: Bedside Glucose 219 mg/dL (70-110)
[2020-03-21 07:00] VITALS: PULSE 74
[2020-03-21 07:22] VITALS: BP 125/79; PULSE 75; RESP 18; TEMP 36.4; O2SAT 97
[2020-03-21] MEDS: Aspirin E.C. 81 MG Tablet PO (07:31)
[2020-03-21] MEDS: TICAGRELOR 90 MG TABLET PO (07:32)
[2020-03-21 07:40] VITALS: BP 125/79; PULSE 75; RESP 18; TEMP 36.4; O2SAT 97
[2020-03-21] MEDS: Isosorbide Mononitrate 30 MG Tablet PO (07:40)
[2020-03-21 07:41] VITALS: BP 125/79; PULSE 75
[2020-03-21] MEDS: Metoprolol Tartrate 25 MG Tablet 12.5 MG PO (07:41)
[2020-03-21] MEDS: Enoxaparin 40 MG/0.4 ML Syringe SC (07:42)
[2020-03-21] MEDS: Lisinopril 10 MG Tablet PO (07:42)
--- NOTE | 2020-03-21 09:59 | PN.CARD_ITS ---
Objective: Vital Signs Temp Pulse Resp BP Pulse Ox 97.6 F L 75 18 125/79 H 97 03/21/20 07:22 03/21/20 07:41 03/21/20 07:22 03/21/20 07:41 03/21/20 07:22 Oxygen Flow Rate (L/min) 2 Oxygen Delivery Method Room Air Weight: 165 lb 5.547 oz Body Mass Index (BMI) 27.6 Intake and Output for Last 24 Hours 03/19/20 03/20/20 03/21/20 23:59 23:59 23:59 Intake Total 1580 / 1580 2360 / 2360 240 / 240 Output Total 200 / 200 Balance 1380 / 1380 2360 / 2360 240 / 240 General: Awake, Alert, Oriented x 3 HEENT: PERRL, EOMI, Sclera Non Icteric Neck: Supple, Good ROM, No Lymph Node Enlargement Lungs: Clear to auscultation Cardiovascular: Regular Rhythm, Normal S1, Normal S2, No Murmurs, No Rubs, No Gallops Abdomen: Soft, Non Tender, No HSM, No Organomegaly 03/20/20 11:47: Troponin I 6.930 H* Rhythm: Normal sinus rhythm EKG: Old inferior AL and recent anterior AL ECHO: Ejection fraction 35-40% with segmental wall motion abnormality anteroapical/distal septal hypokinesia Medical Necessity - Tobacco Use Smoking Status: Current every day smoker Tobacco Use: Cigarettes Assessment/Plan 50-year-old patient Has recent anterior myocardial infarction with successful PCI and stent of the mid LAD Also patient has post AL angina Today her symptoms of chest pain resolved she had no further episode of chest pain which have been stable clinically. I discussed with the nursing staff regarding cardiac care plan Discussed current medication and lab test Last high sensitive troponin was trending down and on the cardiac telemetry she remained in sinus rhythm and repeated EKG showed no significant change. 1. Patient will be on dual antiplatelet therapy with Brilinta low-dose aspirin. 2. Metoprolol low-dose 3. Lisinopril as tolerated 4. Long-acting nitroglycerin Imdur due to post AL angina 5. Atorvastatin/statin Patient will be scheduled for cardiac rehab phase 1 Patient will follow up with her primary senior mechanical development engineer, continuation of cardiac care plan and also to discuss need for further myocardial revascularization With elective PCI of left circumflex artery/OM1. From cardiac standpoint patient can be discharged home today.
--- NOTE | 2020-03-21 10:00 | EKG12_ITS ---
Test Reason : AM EKG Blood Pressure : / mmHG Vent. Rate : 070 BPM Atrial Rate : 070 BPM P-R Int : 156 ms QRS Dur : 110 ms QT Int : 480 ms P-R-T Axes : 055 029 094 degrees QTc Int : 518 ms Normal sinus rhythm Inferior infarct , age undetermined Anterolateral infarct , age undetermined Prolonged QT Abnormal ECG Confirmed by GAYLA BRENNER, SADIQ ([id number]), scientific editor JOO SUERO ([id number]) on 03/24/2020 8:30:36 AM Referred By: MEERA Confirmed By:SADIQ SHUKLA MD
--- NOTE | 2020-03-21 11:49 | PCM.DC.SUM ---
Discharge Date and Diagnosis - Problem List Patient Problems: Active and Suspected Problems (Last Reviewed 03/18/20 @ 19:[address] Elana Saravia DO) STEMI (ST elevation myocardial infarction) (Acute) Date of Admission: 03/18/20 Date of Discharge: 03/21/20 - Primary Discharge Diagnosis Acute Problems: Active Problems (Last Reviewed 03/18/20 @ 19:[address] Elana Saravia DO) STEMI (ST elevation myocardial infarction) (Acute) - Secondary Discharge Diagnosis Chronic Problems: Chronic Problems (Last Reviewed 03/18/20 @ 19:[address] Elana Saravia DO) Atherosclerosis of coronary artery of [place] heart without angina pectoris (Chronic) [id number] RCA w/ 2.5 x 8 mm Resolute Integrity Stent 12/14/17 History of coronary artery stent placement (Chronic 12/14/17) [id number] RCA w/ 2.5 x 8 mm Resolute Integrity Stent 12/14/17 Essential (primary) hypertension (Chronic) Hyperlipidemia (Chronic) Claudication (Chronic) Nicotine dependence (Chronic) Hospital Course and Treatment Imaging Results: Clinical Impression(s) from Imaging Studies Chest X-Ray 03/18/20 18:42 IMPRESSION: Normal x-ray examination of the chest. Electronically Signed: Dionicio Del Angel DO at 19:01 EST Tel [phone], Service support , Echo: Interpretation Summary The estimated ejection fraction is 35-40 %. Moderately dilated left ventricle. Septal [place] : Hypokinetic Trivial mitral valve insufficiency. Unable to estimate RV systolic pressure due to insufficient tricuspid regurgitant envelope. PCI Cardiac Cath Report PCI Report: Procedure performed; 1. Moderate sedation using intravenous Versed intravenous fentanyl 2. Left heart catheterization, LVEDP measurement. 3. Successful percutaneous coronary intervention of the culprit lesion, pre-PCI occluded LAD with YASIR 0 flow preprocedure Post PCI successful placement of drug-eluting stent 2.5 x 3 mm Synergy stent/drug-eluting stent with 0% stenosis and YASIR-3 flow in the LAD 4. Successful placement of TR band to close arteriotomy site with no complication Consults: Cardiology Operations: None Procedures: 2-D Echocardiogram, Cardiac catheterization Summary of Care Provided: Per HPI: Ms Palumbo is a 50 year old WF with a PMH of CAD status post PCI with SUHAIL to ostial RCA in 2018, HTN, HPL, DM-2, and nicotine dependence who presented to the emergency department at [facility] on 03/18/2020 complaining of chest pain. Her EKG showed ST elevations in the inferior leads reciprocal depression and a STEMI alert was called but upon review with reworker the patient had already had Q waves present in a STEMI call was canceled, but cardiac catheterization was performed. Per the patient her symptoms have started yesterday and have been waxing and waning in intensity but never were completely gone. She states she comes today after her aunt urged her to present. She drove herself to the emergency department. She states that yesterday she had some nausea with an emesis. She has had pain radiating bilateral arms and into her neck and chest pressure centrally that radiates to her back. Hospital Course: 1. Acute inferior STEMI/HTN/HLD/nicotine dependence/ischemic [id number]-[id number]-old female who continues to smoke presented to the hospital with chest pain that has been ongoing going for a day or so. STEMI alert was called and she was seen to the [facility]n House Supervisor where she had a stent placed in the LAD. She does have other lesions that will be evaluated as an outpatient. She states today that her chest pain is significantly improved and is just a dull ache. Repeat troponins demonstrate that it is coming down. Cardiology evaluated her and felt that she was okay for discharge today. She will continue with her Lipitor at 80 mg, and her lisinopril was decreased to 10 mg and her metoprolol was decreased to 12.5 mg. She can continue with her indoor and she will be on aspirin and Brilinta. However the Brilinta is cost prohibitive so after the 1 free month, she should go back to Plavix. I did discuss with her the necessity for discontinuing her tobacco use she expressed understanding but thinks that it will be very hard to quit. She also had an echo which demonstrated an EF of 35 to 40% I discussed with her the plan for discharge today and she expressed understanding the risk and benefits of going home and would like to go home today. 2. Type 2 diabetes-this is a new diagnosis for her, she has been getting insulin while here. Her A1c during her hospitalization was 11.1 and she should ideally be started on insulin therapy however my concern would be for compliance issue given all the new issues she found out she had during his hospitalization. Right now we will start her on 500 extended release of Metformin and [facility] so can be on the $4 list. Discussed with her what and appropriate diet, but she will need follow-up as an outpatient. Patient Problems: Active and Suspected Problems (Last Reviewed 03/18/20 @ 19:[address] Elana Saravia, DO) STEMI (ST elevation myocardial infarction) (Acute) - Physical Exam Vitals/I&O's: Vital Signs Temp Pulse Resp BP Pulse Ox 97.6 F L 75 18 125/79 H 97 03/21/20 07:40 03/21/20 07:41 03/21/20 07:40 03/21/20 07:41 03/21/20 07:40 Oxygen Flow Rate (L/min) 2 Oxygen Delivery Method Room Air Weight: 165 lb 5.547 oz Body Mass Index (BMI) 27.6 Intake and Output for Last 24 Hours 03/19/20 03/20/20 03/21/20 23:59 23:59 23:59 Intake Total 1580 / 1580 2360 / 2360 240 / 240 Output Total 200 / 200 Balance 1380 / 1380 2360 / 2360 240 / 240 General: Alert, Oriented x3, Cooperative, No apparent distress HEENT: Atraumatic, PERRLA, EOMI, Normocephalic Oral: Moist Mucosa Neck: Supple, No JVD Lungs: Clear to auscultation, Normal air movement, No rhonchi, No wheeze, No rales Cardiovascular: Regular rate, Regular Rhythm, Normal S1, Normal S2, No murmurs Abdomen: Soft, Non Tender, Non-Distended, No Hepato-splenomegaly Extremities: No edema, Capillary Refill Less than 3 Seconds Skin: No rashes, No breakdown Neurological: Neuro grossly intact, Sensory exam intact to light touch and pain Psych/Mental Status: Normal Affect, Appropriate Laboratory Results 03/20/20 11:47: Troponin I 6.930 H* 03/20/20 12:09: POC Glucose 305 H 03/20/20 16:17: POC Glucose 340 H 03/20/20 21:53: POC Glucose 307 H 03/21/20 06:37: POC Glucose 219 H Discharge Activity: Return to Normal Activity Call your doctor if you observe: Fever of 101 or Higher, Shortness of breath, Dizziness, Fainting spells, Swelling in the ankles, Chest pain, Increased palpitations (irregular heartbeat) Home Medications: Medications to take at Discharge Aspirin E.C. [Ecotrin] 81 mg PO DAILY@0800 tab 12/15/17 atorvastatin 80 mg tablet 80 mg PO QHS #90 tab 07/23/19 Ticagrelor [Brilinta] 90 mg PO BID #60 tab 03/19/20 Isosorbide Mononitrate [Isosorbide Mononitrate ER] 60 mg PO DAILY #30 tab.er.24h 03/20/20 Lisinopril 10 mg PO DAILY #90 tab 03/20/20 Metoprolol Tartrate 12.5 mg PO BID #180 tab 03/20/20 clopidogrel 300 mg tablet 300 mg PO .COMPLEX #1 tab 03/20/20 clopidogrel 75 mg tablet 75 mg PO DAILY #30 tab 03/20/20 Following Prescriptions Were Given to Patient: Ticagrelor [Brilinta] 90 mg PO BID #60 tab Transmission Status: Received by [facility] Isosorbide Mononitrate [Isosorbide Mononitrate ER] 60 mg PO DAILY #30 tab.er.24h Transmission Status: Received by [facility] Primary Care Physician: Care Physician,No Primary [Primary Care Provider] - Please follow up with your Primary Care Physician in: 3-5 days Please Follow Up With: Aditya Dominguez MD When: 2 weeks as scheduled Disposition: Home Minutes spent on discharge:: 35 Patient Condition:: Stable Medical Necessity - Tobacco Use Smoking Status: Current every day smoker Tobacco Use: Cigarettes Meaningful Use Info Meaningful Use Diagnoses (Choose all that apply): None applicable Inpatient E&M: 39969 Disch Hosp
--- NOTE | 2020-03-24 11:17 | CASEMGMT ---
RN CM Discharge F/U Phone Call LACE: 10 Strata: 3 Discharge date: 03/21/20 Call date: 03/24/20 Call time: [phone] Attempted to reach pt without success at this time, message left for pt to call this RN CM back if/when able. SStaten RN CM Admission dx: Acute NM
--- NOTE | 2020-03-24 11:56 | CASEMGMT ---
ZEYNEP COLUNGA DC PHONE CALL DC DATE: 03/24/20 DC Disposition: Home Diagnosis on Discharge: STEMI LACE/STRATA: 11/15 Intro role of CM to patient via phone. Patient states she is feeling good, no questions re: medications or f/u. She has her Brilinta prescription and an appointment with Dr. Dominguez. no other concerns, and no care improvement suggestions were given. Jeremiah ENGEL RN ACM
== END 2020-03-21 11:04 | disposition home or self-care (01) | DRG 247 ==
LOC: ED 18:37 → ICU 18:59 → PCU 03-19 16:58
PROVIDERS: Internal Medicine Interventional Cardiology; Admitting Provider Internal Medicine; Emergency Provider Emergency Medicine; Visit Provider Family Medicine
DX: I21.19 ST elevation (STEMI) myocardial infarction involving other coronary artery of inferior wall (principal); I23.7 Postinfarction angina; I24.9 Acute ischemic heart disease, unspecified; I25.110 Atherosclerotic heart disease of native coronary artery with unstable angina pectoris; I25.5 Ischemic cardiomyopathy; I10 Essential (primary) hypertension; E11.51 Type 2 diabetes mellitus with diabetic peripheral angiopathy without gangrene; E78.5 Hyperlipidemia, unspecified; F32.9 Major depressive disorder, single episode, unspecified; F17.210 Nicotine dependence, cigarettes, uncomplicated; Z79.84 Long term (current) use of oral hypoglycemic drugs; Z79.02 Long term (current) use of antithrombotics/antiplatelets; Z79.82 Long term (current) use of aspirin; Z79.899 Other long term (current) drug therapy; I25.2 Old myocardial infarction; Z95.5 Presence of coronary angioplasty implant and graft; Z95.1 Presence of aortocoronary bypass graft
CPT/HCPCS: 71045; 80048; 80053; 80061; 82962; 83036; 83735; 84100; 84443; 84484; 85025; 85027; 85610; 85730; 92928; 93005; 93306; 93454; 97802; 99152; 99153; 99251; 99285; J7030; Q9967; A4216; C1725; C1769; C1874; C1887; C1894; C9600; G0463; J1940; J2405

== ENCOUNTER 2020-04-28 08:56 | Day surgery (SDC) | payer OTHER, MEDICAID, SELFPAY ==
[2020-04-17 08:57] VITALS: BMI 26.2
[2020-04-17 11:21] LABS: Absolute Lymphocyte Count 2.44 X10^3/uL (0.83-4.51); Absolute Neutrophil Count 5.1 X10^3/uL (2.0-7.7); Basophil# 0.05 X10^3/uL; Basophil% 0.6 % (0-1); Eosinophil# 0.23 X10^3/uL; Eosinophils% 2.7 % (0-5); Hematocrit 39.9 % (37-47); Lymphocyte # 2.44 X10^3/ul (4.0); Lymphocyte % 29.1 % (19-41); Mean Corp Hgb Conc 35.1 g/dL (32-36); Mean Corpuscular Hgb 30.6 pg (27.0-32.0); Mean Corpuscular Volume 87.1 fL (81-99); Monocyte# 0.53 X10^3/uL; Monocyte% 6.3 % (0-10); NRBC Flagged by Analyzer 0 % (0-5); Neutrophil # 5.11 X10^3/uL (2.7-7.7); Neutrophil % 60.9 % (47-70); Platelet Count 199 K/mm3 (150-450); RBC Distribution Width CV 14.1 % (11.6-14.6); RBC Distribution Width SD 42.1 fl (35.1-43.9); Red Blood Count 4.58 M/mm3 (4.2-5.4); White Blood Count 8.4 K/mm3 (4.4-11.0)
[2020-04-17 11:59] LABS: Anion Gap 4 (5-15); BUN 11 mg/dL (7-18); BUN/Creat Ratio 17.5 RATIO (10-20); Chloride 106 mmol/L (98-107); Creatinine, Serum 0.63 mg/dL (0.55-1.02); EST Glomerular Filtration Rate 107 mL/min (>60); Est Glom Filt Rate - Afr Amer 129 mL/min (>60); Glucose 316 mg/dL (74-106); Potassium 4.2 mmol/L (3.5-5.1); Sodium Level 138 mmol/L (136-145)
[2020-04-24 13:50] VITALS: BMI 26.2
[2020-04-28] VITALS (13 sets, daily range): BP systolic 117–140; BP diastolic 62–74; PULSE 61–77; RESP 16–18; TEMP 36.5–37.1; O2SAT 97–99
--- NOTE | 2020-04-28 07:00 | HP_ITS ---
HPI HPI History of Present Illness Details: Charlie 50-year-old lady who has a history of known coronary artery disease she had a prior myocardial infarction in 2018 and underwent a PCI to the ostium of the right coronary artery with a drug-eluting stent. She presented with a non-ST elevation myocardial infarction in March of this year a cardiac catheterization demonstrated an occluded right coronary artery stent, and occluded mid LAD, 90% left circumflex artery and an 80% diffuse obtuse marginal branch. She also had qzvt-[id number]-tzlxe collaterals. She underwent angioplasty and stenting of the left anterior descending artery. She has done well but has had occasional chest discomfort described as a pressure. She is here to consider angioplasty and stenting of the left circumflex artery. She has had no dizziness or diaphoresis no near syncope or syncope. She has been compliant with all her medications. She cannot afford the Brilinta and so this is being converted to clopidogrel. Her physical exam today is unremarkable her electrocardiogram demonstrates normal sinus rhythm with a rate of 72 bpm. She does have T wave inversions noted in V3 to through V5. Intake Vital Signs 04/17/20 Height 5 ft 5 in 04/17/20 Weight: 158 lb 04/17/20 BMI 26.2 04/17/20 BP 117/76 04/17/20 Respiration 16 04/17/20 Pulse 72 04/17/20 Pulse Oximetry (%) 100 Intake Visit Reasons: d/c PCU 03/21 (we r/s from 03/17 & 04/03) Allergies Penicillins [PCN] Allergy (Verified 04/17/20 09:29) Other Medications Aspirin E.C. [Ecotrin] 81 mg PO DAILY@0800 tab 12/15/17 [Rx Confirmed 04/17/20] atorvastatin 80 mg tablet 80 mg PO QHS #90 tab 07/23/19 [Rx Confirmed 04/17/20] Isosorbide Mononitrate [Isosorbide Mononitrate ER] 60 mg PO DAILY #30 tab.er.24h 03/20/20 [Rx Confirmed 04/17/20] Lisinopril 10 mg PO DAILY #90 tab 03/20/20 [Rx Confirmed 04/17/20] Metoprolol Tartrate 12.5 mg PO BID #180 tab 03/20/20 [Rx Confirmed 04/17/20] Metformin HCl [Metformin HCl ER] 500 mg PO DAILY #30 tab.er.24h 03/21/20 [Rx Confirmed 04/17/20] clopidogrel 75 mg tablet 75 mg PO DAILY #30 tab 03/23/20 [Rx Confirmed 04/17/20] ticagrelor 90 mg tablet 90 mg PO Q12H 04/17/20 [History Confirmed 04/17/20] Ejection fraction %: 35 to 39 PFSH Medical History 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 (Chronic) Old inferior wall myocardial infarction (Chronic) Atherosclerosis of coronary artery of [place] heart without angina pectoris (Chronic) History of non-ST elevation myocardial infarction (NSTEMI) (Resolved 03/18/20) Essential (primary) hypertension (Chronic) Hyperlipidemia (Chronic) Claudication (Chronic) Nicotine dependence (Chronic) Depression (Chronic) Thickening of wall of gallbladder (Chronic) Type 2 diabetes mellitus (Chronic) Surgical History History of coronary artery stent placement (Chronic 03/18/20) Family History Mother Heart disease Social History (Updated 04/17/20 @ 10:[address] Aditya Dominguez MD) Smoking Status: Current every day smoker ROS Const Const: Positive for other (7-8 cigarettes daily); negative for fatigue, weakness, headache(s), frequent falls, difficulty sleeping or excessive sweating Eyes Eyes: Negative for loss of peripheral vision, transient loss of vision, blurry vision, double vision or tunnel vision ENT ENT: Negative for headache(s), dizziness, Nosebleed/epistaxis or balance problems Cardio Chest Pain: Yes (chest pain with activity and c/o substernal epigastric tightness constantly) Frequency: daily, weekly Character: squeezing Onset: exercise Location: epigastric, mid sternal Duration: minutes Exacerbation: activity Relieving: rest Palpitations: No Edema: None Muscle aches with walking: None Resp Respiratory: Positive for SOB with activity (with ambulation); negative for SOB at rest, SOB orthopnea\SOB lying down, Cough or paroxysmal nocturnal dyspnea GI GI: Negative nausea, vomiting, heartburn or black,tarry stools : Negative for hematuria Musc Musc: Negative for muscle aches/ myalgia, muscle weakness, joint pain or balance problems Skin Skin: Negative non-healing lesions, rash or unusual bruising Neuro Neuro: Negative for dizziness, lightheadedness, near syncope, syncope, orthostatic symptoms, frequent falls, headache(s), weakness, blurry vision, double vision or lack of coordination Song Hematologic/Lymphatic: Negative for easy bleeding or easy bruising Endo Endo: Negative for fatigue, excessive sweating or increased thirst/drinking Psych Psych: Negative for anxiety or depression Allergy Allergy/Immunology: Negative for hives, Negative for rash Cardiology Exam Const Appearance: cooperative, healthy appearing, no acute distress, well developed and well groomed Nutritional Appearance: average body habitus and well nourished Orientation: alert, awake and oriented x3 Head Head: normal to inspection, normocephalic and atraumatic Ears: hearing grossly normal bilaterally and external ears normal Nose: external nose normal, nares normal, nasal mucous membranes and turbinates normal, septum normal, no nasal discharge Face and Sinus: face symmetric Mouth: oral mucosae normal, tongue normal, oropharynx normal and moist mucous membranes Teeth and gingiva: dentition normal Throat: posterior oropharynx normal, tonsils normal and uvula midline Eyes General: appearance normal, both eyes and all related structures Eyelids: eyelids normal Conjunctivae: conjunctivae normal Pupils: PERRL, normal by confrontation and accommodation normal EOM: EOM intact bilaterally Neck Neck: normal visual inspection, trachea midline and no JVD JVD: +5 Carotids: normal carotid upstroke and bounding pulses Chest Chest inspection: normal inspection of the chest, symmetric chest movement and normal respiratory effort Auscultation: Bilateral: Clear to Auscultation Cardio Palpation: normal PMI Rate: regular rate Rhythm: regular rhythm Heart sounds: S1 normal, S2 normal and normal, physiologic split S2; negative rub, gallop or murmur GI GI: normal to inspection, soft, no hepatosplenomegaly and bowel sounds present Neuro General: alert, awake, oriented x3, gait normal, moves all extremities and no focal sensory deficit Skin Skin: no rashes or lesions noted Extremities Pulses: Normal: Right Femoral Pulse, Left Femoral Pulse, Right Dorsalis Pedis Pulse, Left Dorsalis Pedis Pulse, Right Posterior Tibial Pulse, Left Posterior Tibial Pulse, Right Radial Pulse, Left Radial Pulse Lower Extremity Edema: None: Bilateral Musculoskel Musculoskeletal: No joint tenderness Psych Psychological: normal affect Assessment & Plan 1. History of non-ST elevation myocardial infarction (NSTEMI) I25.2 Plan She is status post non-ST elevation myocardial infarction in March of this year. She had her LAD stented she does have residual disease in the left circumflex artery and she will be set up to have this done in the next 2 weeks or so. She will switch from the Brilinta to the clopidogrel together with aspirin. She has been instructed on how to have this converted. Orders Orders: 12 Lead EKG performed by [facility] Today 2. History of coronary artery stent placement Z95.5 [id number] RCA w/ 2.5 x 8 mm Resolute Integrity Stent 12/14/17; PCI-SUHAIL-LAD w/ 2.5 x 3.0 Synergy Stent 03/18/20 Plan She is status post angioplasty and stenting of the left anterior descending artery. She will continue with aspirin indefinitely as well as clopidogrel. She would also be on the beta-kiel and high intensity statin. Orders Orders: 12 Lead EKG performed by [facility] Today 3. Essential (primary) hypertension I10 Plan She does have a history of hypertension which is well controlled on the current medical therapy no major changes will be made. Orders Orders: 12 Lead EKG performed by [facility] Today 4. Hyperlipidemia, unspecified hyperlipidemia type E78.5 Plan She does have a history of high hyperlipidemia and she will continue on high intensity statin. Aggressive risk factor modification will be undertaken. Smoking cessation has been emphasized. Orders Orders: 12 Lead EKG performed by [facility] Today 5. Claudication I73.9 Plan She does have peripheral vascular disease likely and has some claudication. She will be scheduled with his vascular surgeon in the coming weeks. Thank you for allowing me to participate in her care. Orders Orders: 12 Lead EKG performed by [facility] Today Plan Detail Other Orders Orders: 12 Lead EKG performed by [facility] Today F17.200, I25.10 Follow Up 3 Months (r) Coding Level of Care Code Off vis,est,level 4 Diagnoses History of non-ST elevation myocardial infarction (NSTEMI) I25.2 History of coronary artery stent placement Z95.5 Essential (primary) hypertension I10 Hyperlipidemia, unspecified hyperlipidemia type E78.5 ??Hyperlipidemia type: unspecified Claudication I73.9 Coding Level of Care Code Off vis,est,level 4 Diagnoses History of non-ST elevation myocardial infarction (NSTEMI) I25.2 History of coronary artery stent placement Z95.5 Essential (primary) hypertension I10 Hyperlipidemia, unspecified hyperlipidemia type E78.5 ??Hyperlipidemia type: unspecified Claudication I73.9 Supplemental Info Supplemental Information Labs LDL Cholesterol 83 mg/dL (0-130) 03/19/20 HDL Cholesterol 29 mg/dL (40-) L 03/19/20 Triglycerides 149 mg/dL (-199) 03/19/20 VLDL Cholesterol 30 mg/dL (5-40) 03/19/20 Diagnostics Electrocardiogram 04/17/20 Echocardiogram 03/19/20 Chest X-Ray 03/18/20
[2020-04-28 09:18] LABS: Internal QC Validated? YES +Cl - CLEAR BKGD; Pregnancy, Urine Negative Negative
--- NOTE | 2020-04-28 11:26 | CL.PCI_ITS ---
PCI Cardiac Cath Report PCI Report: Procedure performed; 1. Successful PCI of diffuse distal left circumflex 90%, with YASIR-3 flow, post PCI and stent reduction of stenosis to 0% and YASIR-3 flow remained 3 Successful placement of a drug-eluting stent 2.25 x 32 mm Synergy, predilatation of the distal left circumflex using 2 x 20 mm emerge balloon. 2. Measurement of IFR to the proximal left circumflex, measured 0.98, test performed x3. This is significant for nonobstructive atherosclerosis of the proximal left circumflex angiographically around 40% 3. High-grade OM1 99% ostial/proximal stenosis, small vessel unable to cross, will treat medically. 4. Successful placement of Perclose to close the right common femoral artery arteriotomy site with no complication. Preprocedure diagnosis; 50-year-old patient, has a history of CAD and a recent anterior ND with occluded LAD underwent successful PCI of the mid LAD Also patient had significant atherosclerosis involving the high OM1, distal left circumflex and occluded RCA which is well collateralized from the left coronary system. Patient had history of diabetes mellitus, hypertension hyperlipidemia, and should be seen in follow-up in the clinic by the primary director of volunteer services Dr. Dominguez. Based on the clinical presentation she was brought in today to the [facility] for elective PCI of the left circumflex artery and to evaluate the proximal left circumflex by IFR. Consent; Risk and benefit of the procedure explained in detail to the patient she elected to proceed informed consent obtained. Moderate sedation; Patient was given 2 mg of Versed and 50 mcg of fentanyl intravenously in the [facility]. Initially attempted access from the right radial was not successful she had a very small vessel and based on that we will proceed with the right common femoral artery under fluoroscopic guidance and a 6 Chadian sheath successfully placed in the right common femoral artery prior to that she had lidocaine infiltrated in the right common femoral artery area. This patient angiographically has a separate ostia of the left circumflex and the LAD Interventional equipment and plan; With the following equipment #1 6 Chadian JL 3.5 guide 2. IFR wire 3. Run-through wire 4. 2 x 20 Emerge balloon 5. 2.25 x 32 mm Synergy stent 6. Placement of Perclose to close arteriotomy site. Procedure in detail; Patient brought to the [facility] in a fasting state Right common femoral artery area and right radial artery area prepped and draped in usual sterile fashion Under fluoroscopic guidance we will proceed with the access Tricon femoral artery 6 Chadian sheath placed in the right common femoral artery, then will proceed with the 6 Chadian 3.5 JL guide advanced ascending aorta cannulated ostium of the left circumflex/patient has separate ostia of the LAD and the left circumflex Proceed with a wire which is a run-through wire across the lesion in the distal left circumflex predilated using 2 x 20 mm balloon We will proceed with the 2.25 x 32 mm drug-eluting stent Synergy placed in the distal left circumflex. Evaluation of the proximal left circumflex lesion which is around 40% with IFR showed IFR of 0.98 Attempted cross of the ostial circumflex was not successful high-grade lesion. Patient remained stable IC nitro was used around 3 times There was no dissection in the distal stent of the left circumflex and there is YASIR-3 flow on patient remained stable Selective right common femoral artery angiography obtained and Perclose used to close arteriotomy site with no complication in the [facility]. Conclusion recommendations; Successful PCI of the distal left circumflex with placement of drug-eluting stent as unspecified Evaluation of the proximal left circumflex with IFR showed nonobstructive atherosclerosis OM 1 small vessel with high-grade ostial lesion Recommendations medical therapy and patient will follow up with her primary director of volunteer services Dr. Izabella Wolfe MD,[facility] foam machine operator
--- NOTE | 2020-04-28 11:30 | EKG12_ITS ---
Test Reason : CP Blood Pressure : / mmHG Vent. Rate : 074 BPM Atrial Rate : 074 BPM P-R Int : 164 ms QRS Dur : 108 ms QT Int : 422 ms P-R-T Axes : 062 023 084 degrees QTc Int : 468 ms Normal sinus rhythm Lateral infarct , age undetermined Inferior infarct , age undetermined ST & T wave abnormality, consider anterior ischemia Abnormal ECG Confirmed by GAYLA BRENNER, SADIQ ([id number]), film editor supervisor JOO SUERO ([id number]) on 04/30/2020 1:01:08 PM Referred By: Jocelynn Wolfe Confirmed By:SADIQ SHUKLA MD
[2020-04-28] MEDS: 0.9% Normal Saline 1,000 ML 75 ML IV (12:40)
--- NOTE | 2020-04-28 13:25 | CRPHASE1_ITS ---
Patient Communication Former Patient:: Phase I PHII Cardiac Rehab Discussed with Patient:: Yes Guide to Cardiac Rehab Given to Patient:: Yes - Phase I education completed within past weeks. Booklet given at that time. Cardiac Rehab Facility Choice List Given to Patient:: Yes Choice Program [facility] PHII:: Communication Given to CR Heel Emery Buffer:: Jocelynn Wolfe Refer Phase II Cardiac Rehab:: Yes Sessions:: 36 sessions - 3 days/wk, 12 weeks Cardiac Rehabilitation Info Cardiac Rehabilitation Program Information: Cardiac Rehabilitation is important for patients like you who are recovering from a heart problem. Cardiac rehabilitation programs are recognized as integral to the continued care of the patient with coronary heart disease. The cardiac rehabilitation program is designed to optimize a patient's physical, psychological, and social functioning. Health manager managed care work in cardiac rehabilitation programs and assist you with getting the treatments you need to get stronger and healthier - like exercise, healthy eating habits, and medications. Cardiac rehabilitation has been show to help people with heart problems live longer and have better life enjoyment than people who do not go to cardiac rehabilitation. Please contact the Cardiac Rehabilitation Program at [facility] at in two weeks if you have not heard from them.
--- NOTE | 2020-04-28 13:27 | CRPH1.INST_ITS ---
General Education CAD and cardiac anatomy and function:: Patient communicates acknowledgment, Needs reinforcement Explanation of diagnoses and procedures:: Patient communicates acknowledgment, Needs reinforcement Sign/Symptoms of VT:: Patient communicates acknowledgment, Needs reinforcement Antiplatelet therapy: Patient communicates acknowledgment, Needs reinforcement Proper use of NTG-SL: Patient communicates acknowledgment, Needs reinforcement Emergency procedures and activation of EMS: Patient communicates acknowledgment, Needs reinforcement Compliance of all prescribed medications: Patient communicates acknowledgment, Needs reinforcement Smoking Patient Nicotine/Smoking Risk Factors Are:: Cigarettes Recommendations Include:: Smoking cessation strategies/Smoking packet, Participation in a smoking cessation program Nicotine/Smoking Response Code:: Patient communicates acknowledgment, Needs re inforcement Dyslipidemia Patient Dyslipidemia Risk Factors Are:: Total Cholesterol, Triglycerides, HDL, LDL Recommendations Include:: Lipid profile not available, Reviewed NCEP/ATP guidelines, Therapeutic Lifestyle Change dietary guidelines Dyslipidemia Response Code:: Patient communicates acknowledgment, Needs reinforcement Overweight/Obesity Patient Overweight/Obesity Risk Factors Are:: Overweight = 26-29 Recommendations Include:: Weight loss of 5-10%, Reduced calorie diet, Exercise 5-7 times/week Overweight/Obesity:: Patient communicates acknowledgment, Needs reinforcement Hypertension Recommendations Include:: Maintain BP <130/85, DASH dietary guidelines, Decrease/maintain normal body weight, Moderation of ETOH Hypertension:: Patient communicates acknowledgment, Needs reinforcement Diabetes Patient Diabetes Risk Factors Are:: Elevated blood sugars Recommendations Include:: Maintain fasting blood sugars 70-110 md/dL, Maintain HgbA1c of 6% or less, Monitor blood sugar as prescribed, Diabetic dietary guidelines, Decrease/maintain body weight Diabetes:: Patient communicates acknowledgment, Needs reinforcement Sedentary Patient Sedentary Risk Factors Are:: Lack of regular exercise Recommendations Include:: Aerobic exercise 5-7 times/week for 20-30 minutes continuously, Benefits of regular exercise, Discussed home walking program, Monitored Outpatient Cardiac Rehab Sedentary Response Code:: Patient communicates acknowledgment, Needs reinforcement Stress Recommendations Include:: Identification of stressors, and assessment of coping skills, Stress management techniques Stress Response Code:: Patient communicates acknowledgment, Needs reinforcement
--- NOTE | 2020-04-28 17:35 | NURSING ---
ambulated patient, tolerated well. post PCI site c/d/i. no hematoma noted
--- NOTE | 2020-04-28 21:25 | EKG12_ITS ---
Test Reason : POST PCI Blood Pressure : / mmHG Vent. Rate : 062 BPM Atrial Rate : 062 BPM P-R Int : 156 ms QRS Dur : 106 ms QT Int : 468 ms P-R-T Axes : 059 019 080 degrees QTc Int : 475 ms Normal sinus rhythm Lateral infarct , age undetermined Inferior infarct , age undetermined ST & T wave abnormality, consider anterior ischemia Abnormal ECG Confirmed by GAYLA BRENNER, SADIQ ([id number]), assignment desk editor JOO SUERO ([id number]) on 04/30/2020 1:01:24 PM Referred By: Jocelynn Wolfe Confirmed By:SADIQ SHUKLA MD
--- NOTE | 2020-04-28 21:26 | NURSING ---
CALLED FOR EKG PATIENT COMPLAINING OF SHARP CHEST PAIN AT THIS TIME.
--- NOTE | 2020-04-28 21:48 | NURSING ---
PATIENT STATES SHARP CHEST PAIN IS GONE.
[2020-04-29 02:45] VITALS: PULSE 73
[2020-04-29 03:30] VITALS: BP 137/64; PULSE 78; RESP 16; TEMP 36.6; O2SAT 97
[2020-04-29 05:17] LABS: Hematocrit 35.4 % (37-47); Hemoglobin 11.7 g/dL (12.0-15.0); Mean Corp Hgb Conc 33.1 g/dL (32-36); Mean Corpuscular Volume 87.8 fL (81-99); Mean Platelet Vol. 11.5 fl (6.2-12.0); Platelet Count 170 K/mm3 (150-450); RBC Distribution Width CV 13.4 % (11.6-14.6); RBC Distribution Width SD 43.4 fl (35.1-43.9); Red Blood Count 4.03 M/mm3 (4.2-5.4); White Blood Count 7.1 K/mm3 (4.4-11.0)
[2020-04-29 06:59] VITALS: O2SAT 94
[2020-04-29 07:00] VITALS: PULSE 71
--- NOTE | 2020-04-29 08:24 | PCM.PN.CARD ---
Subjectve: Patient seen and evaluated. Appears to be remarkably well. No complaints. Objective: Vital Signs Temp Pulse Resp BP Pulse Ox 97.8 F 71 16 137/64 H 94 04/29/20 03:30 04/29/20 07:00 04/29/20 03:30 04/29/20 03:30 04/29/20 06:59 Oxygen Delivery Method Room Air Weight: 158 lb Body Mass Index (BMI) 26.2 Intake and Output for Last 24 Hours 04/27/20 04/28/20 04/29/20 23:59 23:59 23:59 Intake Total 480 / 600 1105 / 1105 Balance 480 / 600 1105 / 1105 General: Awake, Alert, Oriented x 3 HEENT: PERRL, EOMI, Sclera Non Icteric Neck: Supple, Good ROM, No Lymph Node Enlargement Lungs: Clear to auscultation Cardiovascular: Regular Rhythm, Normal S1, Normal S2, No Murmurs, No Rubs, No Gallops 04/29/20 04:52: WBC 7.1, RBC 4.03 L, Hgb 11.7 L, Hct 35.4 L, MCV 87.8, MCH 29.0, MCHC 33.1, Plt Count 170, MPV 11.5 Rhythm: EKG: ECHO: Stress Test: Cardiac Cath: PCI: CT Surgery: Holter monitor: EPS: PPM: CXR: Chest CT Scan: Medical Necessity - Tobacco Use Smoking Status: Current every day smoker Assessment/Plan 1. Status post PCI of the obtuse marginal branch. Patient did well overnight with no chest pain. No EKG changes. We will discharge for outpatient follow-up and cardiac rehabilitation.
--- NOTE | 2020-04-29 08:29 | PCM.DC.CCA ---
Discharge Diet: No Restrictions - You may continue your normal diet. Lifting Restrictions: 10 pounds and also avoid any pushing or pulling for 3 days after your test. Additional Activity Instructions:: You must have someone drive you home. Do not drive until instructed by your doctor. You must have someone stay with you all night after your test. Rest in bed or on the couch until the next morning. Limit the number of times you go up and down stairs the day of your test. Apply pressure to the puncture site if you sneeze or cough. Call your doctor if your incision/area has: Increased Pain/ Swelling, Increased Redness, Foul Smelling Discharge, Swelling at the incision site Call your doctor if you observe: Fever of 101 or Higher Additional Dressing/Incision Instructions:: Keep the dressing (bandage) on until the next morning. You may then shower, but do not take a tub bath for 5 days after your test. It is normal to have some tenderness and discomfort at the puncture site. Sometimes bruising also occurs. However, if pain, numbness, or coldness occurs below the puncture site (in your leg, toes, arms or fingers) call your doctor at once. You may have a small, marble sized knot at the puncture site. This is normal. Do not rub it. It will go away in 4-6 weeks. Bleeding can occur from the area where the puncture was done. Blood may spurt or drip from the site. If blood spurts, apply pressure right away to stop bleeding and call 911. Although rare, bleeding into the tissue (hematoma) can also occur. If this happens, a large, firm area goose egg under the skin will appear. If any of these occur, lie down as flat as you can and have someone apply firm pressure to the cath site with a gauze pad or a clean washcloth for 10-15 minutes. Call 911 or go to the Emergency Department. Allergies/Adverse Reactions: Allergies Penicillins [PCN] Allergy (Verified 04/17/20 09:29) Other INTENSIVIES WHAT IT IS SUPPOSED TO BE TREATING metformin Adverse Reaction (Verified 04/17/20 12:52) Diarrhea Medications to take at Discharge Aspirin E.C. [Ecotrin] 81 mg PO DAILY@0800 tab 12/15/17 atorvastatin 80 mg tablet 80 mg PO QHS #90 tab 07/23/19 Isosorbide Mononitrate [Isosorbide Mononitrate ER] 60 mg PO DAILY #30 tab.er.24h 03/20/20 Lisinopril 10 mg PO DAILY #90 tab 03/20/20 Metoprolol Tartrate 12.5 mg PO BID #180 tab 03/20/20 clopidogrel 75 mg tablet 75 mg PO DAILY #30 tab 03/23/20 glipizide 5 mg tablet 5 mg PO DAILY #30 tab 04/17/20 Orders to be completed after discharge: Family Practice Location: None Selected Primary Care Physician: Care Physician,No Primary [Primary Care Provider] - Test Results: Test results from this visit will be discussed in further detail at your follow-up appointment, if applicable. When: heart group and rehab. Proposed Discharge Date: 04/29/20 Cardiac Rehabilitation Info Cardiac Rehabilitation Program Information: Cardiac Rehabilitation is important for patients like you who are recovering from a heart problem. Cardiac rehabilitation programs are recognized as integral to the continued care of the patient with coronary heart disease. The cardiac rehabilitation program is designed to optimize a patient's physical, psychological, and social functioning. Health animal caretaker supervisor work in cardiac rehabilitation programs and assist you with getting the treatments you need to get stronger and healthier - like exercise, healthy eating habits, and medications. Cardiac rehabilitation has been show to help people with heart problems live longer and have better life enjoyment than people who do not go to cardiac rehabilitation. Please contact the Cardiac Rehabilitation Program at [facility] at in two weeks if you have not heard from them.
[2020-04-29 08:47] VITALS: BP 126/70; PULSE 66; RESP 16; TEMP 36.6; O2SAT 98
[2020-04-29] MEDS: Clopidogrel Bisulfate 75 MG Tablet PO (08:55)
[2020-04-29] MEDS: Aspirin E.C. 81 MG Tablet PO (08:55)
--- NOTE | 2020-04-29 09:14 | PHA.DC.MR ---
Pharmacy Service has performed discharge medication reconciliation for this patient. The patient's discharge medication list was reviewed for discrepancies and discrepancies were resolved. Home Medications Aspirin E.C. [Ecotrin] 81 mg PO DAILY@0800 04/29/20 Atorvastatin Calcium [Lipitor] 80 mg PO QHS 04/29/20 Clopidogrel Bisulfate [Clopidogrel] 75 mg PO DAILY 04/29/20 Glipizide 5 mg PO DAILY 04/29/20 Isosorbide Mononitrate [Isosorbide Mononitrate ER] 60 mg PO DAILY 04/29/20 Lisinopril 10 mg PO DAILY 04/29/20 Metoprolol Tartrate 12.5 mg PO BID 04/29/20
--- NOTE | 2020-04-29 10:00 | EKG12_ITS ---
Test Reason : AM EKG Blood Pressure : / mmHG Vent. Rate : 070 BPM Atrial Rate : 070 BPM P-R Int : 170 ms QRS Dur : 108 ms QT Int : 442 ms P-R-T Axes : 068 012 084 degrees QTc Int : 477 ms Normal sinus rhythm Lateral infarct , age undetermined Inferior infarct , age undetermined T wave abnormality, consider anterior ischemia Abnormal ECG When compared with ECG of 28-APR-2020 21:32, MANUAL COMPARISON REQUIRED, DATA IS UNCONFIRMED Confirmed by GAYLA BRENNER, SADIQ ([id number]), sound editor JOO SUERO ([id number]) on 04/30/2020 1:00:43 PM Referred By: Jocelynn Wolfe Confirmed By:SADIQ SHUKLA MD
== END 2020-04-29 08:30 | disposition home or self-care (01) ==
LOC: CLSP 10:23 → PCU 14:13
PROVIDERS: Internal Medicine Cardiovascular Disease; Referring Provider Internal Medicine Interventional Cardiology; Visit Provider Internal Medicine Interventional Cardiology
DX: I25.10 Atherosclerotic heart disease of native coronary artery without angina pectoris (principal); E11.51 Type 2 diabetes mellitus with diabetic peripheral angiopathy without gangrene; I10 Essential (primary) hypertension; E78.5 Hyperlipidemia, unspecified; F32.9 Major depressive disorder, single episode, unspecified; F17.210 Nicotine dependence, cigarettes, uncomplicated; Z79.82 Long term (current) use of aspirin; Z79.84 Long term (current) use of oral hypoglycemic drugs; Z79.02 Long term (current) use of antithrombotics/antiplatelets; I25.2 Old myocardial infarction; Z95.5 Presence of coronary angioplasty implant and graft
CPT/HCPCS: 36415; 80048; 81025; 85025; 85027; 92928; 93005; 93571; 99152; 99153; J7030; J7040; C1725; C1760; C1769; C1874; C1887; C1894; C9600; Q9967

== ENCOUNTER → 2020-09-11 08:46 | Outpatient (CLI) | payer MEDICAID, SELFPAY ==
[2020-08-27 10:49] VITALS: BMI 30.7
--- NOTE | 2020-09-11 08:47 | CDU_ITS ---
Reason For Study: dizziness Rt. Velocities/BP Lt. Velocities/BP Prox CCA 132.6/15.7 cm/sec. Prox CCA 79.3/22.8 cm/sec. Mid CCA 77.8/17.5 cm/sec. Mid CCA 79.3/21.6 cm/sec. Dist CCA 59.7/16.7 cm/sec. Dist CCA 69.5/20.4 cm/sec. Prox ICA 63.3/21.5 cm/sec. Prox ICA 77.1/34.6 cm/sec. Mid ICA 73.8/29.3 cm/sec. Mid ICA 72.0/22.8 cm/sec. Dist ICA 94.1/37.6 cm/sec. Dist ICA 102.7/31.4 cm/sec. Rt. ICA/CCA = 94.1/77.8=1.2. Lt. ICA/CCA = 102.7/79.3=1.3. Prox ECA 99.0/16.7 cm/sec. Prox ECA 100.1/13.0 cm/sec. Rt. Vert. 53.5/17.9 cm/sec. Lt. Vert. 52.5/12.8 cm/sec. Right Extracranial There is homogeneous, smooth atherosclerotic plaque noted in the right common carotid artery. There is homogeneous, smooth atherosclerotic plaque noted in the right internal carotid artery. There is homogeneous, smooth atherosclerotic plaque noted in the right external carotid artery. Antegrade flow is noted in the right vertebral artery. Left Extracranial There is homogeneous, smooth atherosclerotic plaque noted in the left common carotid artery. There is homogeneous, smooth atherosclerotic plaque noted in the left internal carotid artery. There is homogeneous, smooth atherosclerotic plaque noted in the left external carotid artery. Antegrade flow is noted in the left vertebral artery. Procedure Carotid Duplex [id number]. This is a Carotid Duplex examination using B-mode, color flow and specral Doppler. The exam was diagnostic. Exam performed in department. VL/Carotid Duplex Ultrasound Interpretation Summary Mild (<50%) stenosis right extracranial internal carotid. Mild (<50%) stenosis left extracranial internal carotid. Flow within the vertebral arteries is antegrade bilaterally. Ordering Physician: Aneesh Odonnell Referring Physician: Nadege Webber Performed By: Regina Mohan RVT, RDCS and Student
== END ==
PROVIDERS: PCP Nurse Practitioner Family; Referring Provider Nurse Practitioner Family; Visit Provider Nurse Practitioner Family
DX: I65.23 Occlusion and stenosis of bilateral carotid arteries (principal); I25.10 Atherosclerotic heart disease of native coronary artery without angina pectoris; I10 Essential (primary) hypertension; E78.5 Hyperlipidemia, unspecified; R42 Dizziness and giddiness; Z95.5 Presence of coronary angioplasty implant and graft
CPT/HCPCS: 93880

== ENCOUNTER 2021-05-12 13:47 | Outpatient (CLI) | payer MEDICAID, SELFPAY ==
--- NOTE | 2021-05-12 13:50 | ECHOD_ITS ---
Reason For Study: CAD/ASHD Procedure This was a 2D Doppler, Color Flow transthoracic echocardiogram. Exam performed in department. Left Ventricle Normal LV size. Left ventricular systolic function is lower limits of normal. The estimated ejection fraction is 50 %. Stage 1 diastolic dysfunction. Mild segmental systolic dysfunction (see wall motion). Mid-Inferior: Hypokinetic. The rest of the wall segments are normal. Right Ventricle Normal RV size. Normal systolic function. Atria Normal left atrium. Normal right atrium. Mitral Valve Normal mitral valve. Tricuspid Valve Normal tricuspid valve. Aortic Valve Normal aortic valve. Trisinus/trileaflet aortic valve. Pulmonic Valve Normal pulmonic valve. Great Vessels Normal aortic root. The pulmonary artery is normal size. Normal inferior vena cava. Pericardium/Pleural No pericardial effusion. MMode/2D Measurements & Calculations LVIDd: 4.6 cm IVSd: 1.4 cm Ao root diam: 3.1 cm LVIDs: 2.8 cm LVPWd: 0.85 cm LA dimension: 3.8 cm RVDd: 2.7 cm FS: 39.1 % LAV(MOD-bp): 33.0 ml LVAd ap4: 31.3 cm2 SV(MOD-sp4): 44.9 ml LAV(MOD-bp) Indexed: 17.9 ml/m2 LVLd ap4: 7.9 cm LAV(MOD-sp2): 32.8 ml EDV(MOD-sp4): 99.8 ml LAV(MOD-sp4): 30.7 ml EDV(sp4-el): 104.8 ml LVAs ap4: 21.5 cm2 LVLs ap4: 6.9 cm ESV(MOD-sp4): 54.9 ml ESV(sp4-el): 56.9 ml EF(MOD-sp4): 45.0 % EF(sp4-el): 45.7 % SV(sp4-el): 47.9 ml LA A4 area: 12.4 cm2 RA A4 area: 11.3 cm2 Time Measurements MV dec time: 0.30 sec Doppler Measurements & Calculations MV E max negrito: 55.5 cm/sec Lat Peak E' Negrito: 8.6 cm/sec Med Peak E' Negrito: 4.1 cm/sec MV A max negrito: 90.6 cm/sec E/E' lat: 6.5 E/E' med: 13.6 MV E/A: 0.61 MV V2 max: 111.0 cm/sec MV P1/2t max negrito: 76.2 cm/sec Ao V2 max: 117.6 cm/sec MV max P.9 mmHg MV P1/2t: 80.9 msec Ao max P.5 mmHg MV V2 mean: 63.9 cm/sec MV mean P.9 mmHg MV dec slope: 276.0 cm/sec2 MV V2 VTI: 21.3 cm MVA(P1/2t): 2.7 cm2 LV V1 max: 100.5 cm/sec PA V2 max: 102.1 cm/sec LV V1 max P.0 mmHg ECHO/Echo Complete Interpretation Summary Normal LV size. Left ventricular systolic function is lower limits of normal. The estimated ejection fraction is 50 %. Mid-Inferior: Hypokinetic Stage 1 diastolic dysfunction. The rest of the wall segments are normal. Ordering Physician: Aditya Dominguez Referring Physician: Nadege Webber Performed By: Ajay Nicholas RCS
[2021-05-12 16:29] LABS: AST(SGOT) 15 U/L (15-37); Alanine Aminotransfer ALT/SGPT 24 U/L (13-56); Albumin, Serum 3.3 g/dL (3.2-5.0); Alkaline Phosphatase 89 U/L (45-117); Bilirubin, Direct 0.09 mg/dL (0.00-0.30); Cholesterol 98 mg/dL (200); Globulin 4.3 g/dL (2.2-4.2); High Density Lipoprotein 25 mg/dL; Protein, Total 7.6 g/dL (6.4-8.2); Triglycerides 156 mg/dL; Very Low Density Lipoprotein 31 mg/dL (5-40)
== END 2021-05-12 23:59 | disposition home or self-care (01) ==
LOC: CVS 14:21 → LAB 14:25
PROVIDERS: PCP Nurse Practitioner Family; Referring Provider Internal Medicine Cardiovascular Disease; Visit Provider Internal Medicine Cardiovascular Disease
DX: I10 Essential (primary) hypertension (principal); I25.10 Atherosclerotic heart disease of native coronary artery without angina pectoris; E78.5 Hyperlipidemia, unspecified; Z95.5 Presence of coronary angioplasty implant and graft
CPT/HCPCS: 36415; 80061; 80076; 93306

== ENCOUNTER → 2022-01-20 | Outpatient (CLI) | payer MEDICAID, SELFPAY ==
[2022-01-20 11:35] LABS: AST(SGOT) 22 U/L (15-37); Alanine Aminotransfer ALT/SGPT 53 U/L (13-56); Albumin, Serum 3.3 g/dL (3.2-5.0); Alkaline Phosphatase 123 U/L (45-117); Bilirubin, Direct 0.12 mg/dL (0.00-0.30); Cholesterol 130 mg/dL (200); Globulin 3.6 g/dL (2.2-4.2); High Density Lipoprotein 28 mg/dL; Protein, Total 6.9 g/dL (6.4-8.2); Triglycerides 179 mg/dL; Very Low Density Lipoprotein 36 mg/dL (5-40)
== END | disposition home or self-care (01) ==
LOC: LAB 09:39
PROVIDERS: PCP Nurse Practitioner Family; Referring Provider Internal Medicine Cardiovascular Disease; Visit Provider Internal Medicine Cardiovascular Disease
DX: E78.5 Hyperlipidemia, unspecified (principal)
CPT/HCPCS: 36415; 80061; 80076

== ENCOUNTER → 2022-04-27 | Outpatient (CLI) | payer MEDICAID, SELFPAY ==
--- NOTE | 2022-04-27 14:12 | ART_ITS ---
Reason For Study: PVD Procedure A bilateral lower extremity continuous wave Doppler with analog waveform analysis,segmental pressures,and ankle brachial indexes without exercise. DID NOT EXERCISE PT DUE TO ABIs < 0.50 PER PROTOCOL. Left Segmental Pressures Left brachial= 137mmHg. Left thigh = 88mmHg. Left calf = 94mmHg. Left posterior tibial artery = 67mmHg. Left dorsalis pedis artery = 67mmHg. Left digit = 43 mmHg. The left posterior tibial artery waveforms are monophasic. The left dorsalis pedis waveforms are monophasic. Right Segmental Pressures Right brachial= 142mmHg. Right thigh = 85mmHg. Right calf = 65mmHg. Right posterior tibial artery = 65mmHg. Right dorsalis pedis artery = 63mmHg. Right digit = 32 mmHg. The right posterior tibial artery waveforms are monophasic. The right dorsalis pedis waveforms are monophasic. Indices The right resting ankle brachial index is 0.46. The right ankle brachial index by the posterior tibial artery is 0.46. The right ankle brachial index by the dorsalis pedis is 0.44. The right digital-brachial index is 0.23. The left resting ankle brachial index is 0.47. The left ankle brachial index by the posterior tibial artery is 0.47. The left ankle brachial index by the dorsalis pedis is 0.47. The left digital-brachial index is 0.30. VL/Lower Ext Art Exam w/o Exercis Interpretation Summary Bilateral moderate occlussive disease with monophasic flow and TALIA 0.46 and 0.4 7. DBI 0.23 and 0.3. Ordering Physician: Kye Gray Referring Physician: Nadege Webber Performed By: Regina Mohan RVT, RDCS
== END | disposition home or self-care (01) ==
LOC: CVS 14:09
PROVIDERS: PCP Nurse Practitioner Family; Referring Provider Podiatrist; Visit Provider Podiatrist
DX: I73.9 Peripheral vascular disease, unspecified (principal)
CPT/HCPCS: 93923

== ENCOUNTER → 2022-05-10 | Outpatient (CLI) | payer MEDICAID, SELFPAY ==
--- NOTE | 2022-05-10 18:39 | STRESSREP ---
Stress Test Report Pharmacologic myocardial perfusion stress test. 52-year-old lady with a history of coronary artery disease Resting EKG demonstrates sinus rhythm with a rate of 74 bpm. Resting blood pressure is 116/70 mmHg. 0.4 mg of regadenoson was infused per usual protocol followed by rapid intravenous saline flush injection. Continuous EKG monitoring was performed. The maximum heart rate was 105 bpm which was 62% of max impacted heart rate the maximum workload was 1 metabolic equivalent. At rest there were no ST or T wave changes noted to suggest ischemia and at peak infusion nonspecific ST changes were noted which did not meet the criteria for ischemia. No clinical angina is noted. The final blood pressure was 118/70 mmHg. Myocardial perfusion protocol. 12 mCi of technetium 99m sestamibi was injected at rest. 0.4 mg of regadenoson was infused per usual protocol. At peak infusion 35.8 mCi of technetium 99m sestamibi was injected stress images were obtained stress and rest images were reconstructed and compared in the short axis vertical long and horizontal long axis. Gated images were also obtained. Perfusion SPECT analysis: Review of the stress images demonstrate normal uptake of tracer noted in all areas of the myocardium except for the lateral wall with a small area of reduced perfusion. The resting images similar demonstrated normal uptake of tracer noted in all areas of the myocardium except for the lateral wall with a small area of reduced perfusion. The above is suggestive of a previous lateral wall infarct. No obvious reversibility is noted. Gated SPECT analysis: The gated ejection fraction is 21. Conclusion: Normal pharmacologic myocardial perfusion stress test. Previous small lateral infarct is noted Reduced ejection fraction. Ischemic cardiomyopathy
== END | disposition home or self-care (01) ==
LOC: CVS 06:47
PROVIDERS: PCP Nurse Practitioner Family; Visit Provider Nurse Practitioner Family
DX: R07.9 Chest pain, unspecified (principal); Z95.5 Presence of coronary angioplasty implant and graft
CPT/HCPCS: 78452; 93017; A9500; A4216; J2785

== ENCOUNTER → 2022-05-12 | Outpatient (CLI) | payer MEDICAID, SELFPAY ==
[2022-05-12 14:39] LABS: Creatinine, Serum 0.94 mg/dL (0.55-1.02); EST Glomerular Filtration Rate 66 mL/min (>60); Est Glom Filt Rate - Afr Amer 80 mL/min (>60)
== END | disposition home or self-care (01) ==
LOC: LAB 13:43
PROVIDERS: PCP Nurse Practitioner Family; Referring Provider Surgery Trauma Surgery; Visit Provider Surgery Trauma Surgery
DX: I70.233 Atherosclerosis of native arteries of right leg with ulceration of ankle (principal)
CPT/HCPCS: 36415; 82565

== ENCOUNTER → 2022-05-20 | Outpatient (CLI) | payer MEDICAID, SELFPAY ==
--- NOTE | 2022-05-20 06:41 | CT_ITS ---
STUDY: CTA OF THE ABDOMINAL AORTA AND BILATERAL LOWER EXTREMITIES REASON FOR EXAM: Female, 52 years old. Atherosclerosis with rest pain. Peripheral vascular disease. RADIATION DOSAGE (If Supplied By Facility): CTDIvol = ( 7.25 ) mGy, DLP = ( 1493.94 ) mGycm TECHNIQUE: Axial CT angiography multi-detector data acquisition was obtained from the to the following intravenous administration of IV 100mL Isovue-370. Axial images and MIP images were reconstructed from the axial data set. Post-processing of the angiographic images was performed, with multiplanar reformation and 3D reconstruction. Individualized dose optimization techniques were used for this CT. TECHNICAL QUALITY: Good COMPARISON: None. Descriptors of Narrowing: None (0%) Mild (< 50%) Moderate (50-70%) Severe (70-90%) Subtotal/Total Occlusion (90-100%) Non-Evaluable (technically non-diagnostic FINDINGS: Coronary artery stenting is seen. Mild degree of increased markings at the lung bases likely more prominent on the right side suggests a lumbar mild scarring. Mild hepatomegaly and diffuse fatty infiltration of the liver. The patient is status post cholecystectomy. Cortical scarring in the posterior and lateral aspects of the left kidney. Abdominal aorta: Atherosclerotic plaque formation of the infrarenal abdominal aorta. Mild mural thrombus inferiorly. Celiac and superior mesenteric arteries: No demonstrated narrowing. Inferior mesenteric artery: No demonstrated narrowing. Right renal artery(arteries): No demonstrated narrowing. Left renal artery(arteries): No demonstrated narrowing. Right common iliac artery: Minimal plaque is seen at the origin of the right common iliac artery. Right external iliac artery: No demonstrated narrowing. Right internal iliac artery: No demonstrated narrowing. Left common iliac artery: No demonstrated narrowing. Left external iliac artery: No demonstrated narrowing. Left internal iliac artery: No demonstrated narrowing. RIGHT LOWER EXTREMITY Right common femoral artery: No demonstrated narrowing. Right profundus femoris: No demonstrated narrowing. Right superficial femoral: There is occlusion at the origin of the right common femoral artery with reconstitution of the popliteal artery. Right popliteal artery: No demonstrated narrowing. Right tibioperoneal trunk: No demonstrated narrowing. Right anterior tibial artery: No demonstrated narrowing. Right posterior tibial artery: No demonstrated narrowing. Right peroneal artery: No demonstrated narrowing. LEFT LOWER EXTREMITY Left common femoral artery: Occlusion of the left superficial femoral artery at its origin with reconstitution of the popliteal artery. Left profundus femoris: No demonstrated narrowing. Left superficial femoral: No demonstrated narrowing. Left popliteal artery: No demonstrated narrowing. Left tibioperoneal trunk: No demonstrated narrowing. Left anterior tibial artery: No demonstrated narrowing. Left posterior tibial artery: No demonstrated narrowing. Left peroneal artery: No demonstrated narrowing. CT/CTA Abd w/Runoff W/WO Contrast IMPRESSION: Occlusion of the superficial femoral arteries bilaterally at their origin with reconstitution of the popliteal artery. Electronically Signed: Lex Haji MD at 15:00 EDT ,
== END | disposition home or self-care (01) ==
LOC: CT 06:40
PROVIDERS: PCP Nurse Practitioner Family; Referring Provider Surgery Trauma Surgery; Visit Provider Surgery Trauma Surgery
DX: I73.9 Peripheral vascular disease, unspecified (principal)
CPT/HCPCS: 75635; Q9967

== ENCOUNTER 2022-06-07 06:53 | Day surgery (SDC) | payer MEDICAID, SELFPAY ==
[2022-06-06 08:06] VITALS: BMI 30.6
[2022-06-07 07:12] LABS: Hematocrit 45.6 % (37-47); Mean Corp Hgb Conc 32.9 g/dL (32-36); Mean Corpuscular Hgb 29.6 pg (27.0-32.0); Mean Corpuscular Volume 89.9 fL (81-99); Mean Platelet Vol. 11.5 fl (6.2-12.0); Platelet Count 208 K/mm3 (150-450); RBC Distribution Width CV 12.5 % (11.6-14.6); RBC Distribution Width SD 41.1 fl (35.1-43.9); Red Blood Count 5.07 M/mm3 (4.2-5.4); White Blood Count 7.9 K/mm3 (4.4-11.0)
[2022-06-07 07:25] LABS: Anion Gap 5 (5-15); BUN 16 mg/dL (7-18); BUN/Creat Ratio 16.6 RATIO (10-20); Calcium,Total 9.5 mg/dL (8.5-10.1); Chloride 107 mmol/L (98-107); Creatinine, Serum 0.96 mg/dL (0.55-1.02); EST Glomerular Filtration Rate 65 mL/min (>60); Est Glom Filt Rate - Afr Amer 78 mL/min (>60); Glucose 306 mg/dL (74-106); Potassium 4.5 mmol/L (3.5-5.1); Sodium Level 137 mmol/L (136-145)
--- NOTE | 2022-06-07 10:14 | OP.PCM_ITS ---
Report of Operation Date of Procedure: 06/07/22 Pre-Operative Diagnosis: atherosclerosis with rest pain right lower extremity Post-Operative Diagnosis: same Surgery/Procedure Performed:: aortogram, right lower extremity runoff IVUS sfa/popliteal, common femoral, external iliac arteries Attempted crossing sfa/popliteal total occlusion Surgeon: Boom Arteaga Type of Anesthesia: Local and Sedation,Conscious Estimated Blood Loss (mL): 5 Description of Procedure: HPI: Patient is a 52-year-old female with atherosclerosis and rest pain in the right lower extremity which has worsened over the previous months. She had a CT angiogram which revealed an SFA popliteal occlusion with reconstitution of above-knee popliteal artery and a small segment of SFA origin that was patent which suggested opportunity to cross and treat with endovascular methods. She is taken now for angiogram with possible intervention. Description of procedure: Upon obtaining form consent and verification correct patient procedure site patient was taken to the [facility] [employer] where she was positioned prepped and draped in usual sterile fashion. Time was then performed conscious sedation administered with Versed and fentanyl. Skin overlying the left common femoral artery was anesthetized 1% lidocaine and under ultrasound guidance the vessel was accessed with a micropuncture needle and wire in retrograde fashion. There was significant mount of dense scar tissue from previous surgical groin procedures so the micropuncture was exchanged for a stiff wire and sheath micropuncture kit and ultimately were able to obtain access. We then advanced a Bentson wire through the micropuncture sheath and exchanged the micropuncture sheath for a glide catheter which was advanced abdominal aorta and the glide catheter was then used to extend the Bentson for an Amplatz wire. The glide catheter was then withdrawn and the tract dilated with the dilator from a 5 Moldovan sheath followed by 6 Moldovan sheath after which a 5 Moldovan sheath was advanced into the vessel. Omni Flush catheter was advanced abdominal aorta and the wire withdrawn. Digital subtraction aortogram pelvic angiogram was performed and we navigated to the contralateral iliac system where we positioned our catheter in the distal external iliac artery. This position subtraction runoff of the right lower extremity was performed w hich confirmed proximal SFA patent segment for total occlusion and reconstitution of the above-knee popliteal artery. Patient was in heparinized allowed to circulate for 3 minutes and serial ACT's were performed to redose heparin. The Amplatz wire was readvanced and the Omni Flush catheter 5 Moldovan sheath was withdrawn and a 6 Moldovan Ansell sheath advanced in the position in the distal external iliac artery. From this position initially using angled glide catheter and both Bentson and command wire we attempted to engage and across the top Of the lesion. This was a very robust top cap that could not be penetrated with the wire despite multiple different catheters for support. Next we used a [employer] Crosser device and attempted to at least enter into the lesion which we would have to successfully do however it appears if we immediately went into a subintimal plane. The crosser was then exchanged for the command wire which was advanced and intravascular ultrasound probe advanced over the wire which confirmed that we had finally entered into subintimal plane but also shortly after we had perforated and entered into a vasovasorum of the artery. We then withdrew the wire and intravascular sound back to the point of exit from the true lumen and attempted to redirect which we are able to initially successfully do however we again reentered into a subintimal plane however stayed within submental plane throughout the SFA popliteal down to approximate segment of reconstituted popliteal artery. Reevaluation with intravascular ultrasound confirmed that we were in the subintimal plane throughout and in fact probably freely perforated just above the reconstitution of the popliteal artery. [place] that despite our best efforts we were not able to successfully treat the lesion to a recorded pullback confirming wire and catheter position was performed of the SFA popliteal, common femoral, external iliac artery. The intravascular sound then withdrawn and hand-injection angiography via the sheath was performed revealed fairly brisk contrast transit through the subintimal plane and actual perforation of the above-knee popliteal with some free extravasation. The wires and withdrawn the patient was reversed with protamine and repeat imaging revealed resolution of the contrast transit across the dissection plane and no further extravasation. The 6 Moldovan sheath was then withdrawn and manual pressure held for 25 minutes after which satisfactory stasis was noted. Patient was taken to the recovery room with anticipated bedrest for 4 hours prior to discharge.
[2022-06-07 15:35] LABS: ACT Activated Clotting Time 251 sec (74-137)
[2022-06-07 15:35] LABS: ACT Activated Clotting Time 221 sec (74-137)
== END 2022-06-07 14:15 | disposition home or self-care (01) ==
PROVIDERS: PCP Nurse Practitioner Family; Referring Provider Surgery Trauma Surgery; Visit Provider Surgery Trauma Surgery
DX: I70.223 Atherosclerosis of native arteries of extremities with rest pain, bilateral legs (principal); I70.92 Chronic total occlusion of artery of the extremities; Z79.82 Long term (current) use of aspirin; Z79.02 Long term (current) use of antithrombotics/antiplatelets; Z79.84 Long term (current) use of oral hypoglycemic drugs; Z79.899 Other long term (current) drug therapy
CPT/HCPCS: 36200; 36245; 36415; 37252; 37253; 75625; 75710; 76937; 80048; 85027; 85347; 99152; 99153; C1769; J7040; Q9967; C1887

== ENCOUNTER → 2022-06-14 | Outpatient (CLI) | payer MEDICAID, SELFPAY ==
--- NOTE | 2022-06-14 12:42 | ECHOD_ITS ---
Reason For Study: CHF Procedure This was a 2D Doppler, Color Flow transthoracic echocardiogram. Exam performed in department. Left Ventricle Normal LV size. Left ventricular systolic function is normal. Stage 1 diastolic dysfunction. The estimated ejection fraction is 52 %. Infero-Basal: Mildly hypokinetic. Mid-Inferior: Mildly hypokinetic. Basal inferoseptal: Hypokinetic. The rest of the wall segments are normal. Right Ventricle Normal RV size. Normal systolic function. Atria Normal left atrium. Normal right atrium. Mitral Valve Normal mitral valve. Tricuspid Valve Normal tricuspid valve. Aortic Valve Trisinus/trileaflet aortic valve. Pulmonic Valve Normal pulmonic valve. Great Vessels Normal aortic root. The pulmonary artery is normal size. Normal inferior vena cava. Pericardium/Pleural No pericardial effusion. MMode/2D Measurements & Calculations LVIDd: 4.6 cm IVSd: 1.4 cm Ao root diam: 3.1 cm LVIDs: 2.8 cm LVPWd: 0.97 cm RVDd: 2.8 cm FS: 39.6 % LAV(MOD-bp): 32.8 ml LA A4 area: 12.8 cm2 LA dimension(2D): 3.8 cm LAV(MOD-bp) Indexed: 17.5 ml/m2 LAV(MOD-sp2): 30.9 ml LAV(MOD-sp4): 30.9 ml RA A4 area: 7.9 cm2 Time Measurements MV dec time: 0.27 sec Doppler Measurements & Calculations MV E max negrito: 69.6 cm/sec Lat Peak E' Negrito: 7.7 cm/sec Med Peak E' Negrito: 4.8 cm/sec MV A max negrito: 118.0 cm/sec E/E' lat: 9.0 E/E' med: 14.6 MV E/A: 0.59 MV dec slope: 263.5 cm/sec2 Ao V2 max: 118.5 cm/sec LV V1 max: 113.3 cm/sec Ao max P.6 mmHg LV V1 max P.1 mmHg Ao V2 mean: 76.9 cm/sec LV V1 mean P.8 mmHg Ao mean P.8 mmHg LV V1 mean: 79.0 cm/sec Ao V2 VTI: 22.9 cm LV V1 VTI: 21.5 cm AV (velocity ratio): 0.94 PA V2 max: 116.3 cm/sec ECHO/Echo Complete Interpretation Summary Normal LV size. Left ventricular systolic function is normal. Stage 1 diastolic dysfunction. The estimated ejection fraction is 52 %. Ordering Physician: Aneesh Odonnell Referring Physician: Nadege Webber Performed By: Regina Mohan, ALEXANDRE, RVT
[2022-06-14 14:12] LABS: Hemoglobin 14.8 g/dL (12.0-15.0); Mean Corp Hgb Conc 32.9 g/dL (32-36); Mean Corpuscular Hgb 29.5 pg (27.0-32.0); Mean Corpuscular Volume 89.8 fL (81-99); Mean Platelet Vol. 10.9 fl (6.2-12.0); Platelet Count 243 K/mm3 (150-450); RBC Distribution Width CV 12.6 % (11.6-14.6); RBC Distribution Width SD 41.1 fl (35.1-43.9); Red Blood Count 5.01 M/mm3 (4.2-5.4); White Blood Count 7.4 K/mm3 (4.4-11.0)
[2022-06-14 14:41] LABS: ALB/GLOB Ratio 0.9 RATIO (0.9-2.4); AST(SGOT) 22 U/L (15-37); Alanine Aminotransfer ALT/SGPT 48 U/L (13-56); Albumin, Serum 3.5 g/dL (3.2-5.0); Alkaline Phosphatase 144 U/L (45-117); Anion Gap 2 (5-15); BUN 12 mg/dL (7-18); BUN/Creat Ratio 14.2 RATIO (10-20); Calcium,Total 9.5 mg/dL (8.5-10.1); Chloride 108 mmol/L (98-107); Cholesterol 119 mg/dL (200); Creatinine, Serum 0.85 mg/dL (0.55-1.02); EST Glomerular Filtration Rate 75 mL/min (>60); Est Glom Filt Rate - Afr Amer 91 mL/min (>60); Globulin 3.9 g/dL (2.2-4.2); Glucose 347 mg/dL (74-106); High Density Lipoprotein 28 mg/dL; Potassium 4.1 mmol/L (3.5-5.1); Protein, Total 7.4 g/dL (6.4-8.2); Sodium Level 139 mmol/L (136-145); Triglycerides 175 mg/dL; Very Low Density Lipoprotein 35 mg/dL (5-40)
[2022-06-14 14:44] LABS: Hemoglobin A1c 10.4 % (3.8-5.6)
[2022-06-14 14:50] LABS: Microalbumin,Random Urine 17.6 mg/L (NO RANGE EST.)
== END | disposition home or self-care (01) ==
PROVIDERS: PCP Nurse Practitioner Family; Referring Provider Nurse Practitioner Family; Visit Provider Nurse Practitioner Family
DX: E11.65 Type 2 diabetes mellitus with hyperglycemia (principal); I10 Essential (primary) hypertension; E78.5 Hyperlipidemia, unspecified; I25.5 Ischemic cardiomyopathy; Z95.5 Presence of coronary angioplasty implant and graft
CPT/HCPCS: 36415; 80053; 80061; 82043; 82570; 83036; 85027; 93306

== ENCOUNTER → 2022-06-16 | Outpatient (CLI) | payer MEDICAID, SELFPAY ==
--- NOTE | 2022-06-16 10:39 | VDLE_ITS ---
Reason For Study: Pre op bypass planning RIGHT LEFT GSV and SSV appear compressible throughout GSV, SSV, ans ASV appear compressible with no intraluminal echogenicity noted. throughout with no intraluminal echogenicity GSV prox thigh - .43 x .44 cm noted. GSV mid thigh - .25 x .26 cm GSV prox thigh - .36 x .38 cm GSV dist thigh - .29 x .28 cm GSV mid thigh - .22 x .25 cm GSV knee - .26 x .29 cm GSV dist thigh - .32 x .3 cm GSV prox calf - .24 x 0.29 cm GSV knee - .22 x .24 cm GSV mid calf - .25 x .29 cm GSV prox calf - .25 x .26 cm GSV dist calf - .21 x .25 cm GSV mid calf - .1 x 11cm SSV prox calf - .15 x .14 cm GSV dist calf - .22 x .26 cm SSV mid calf - .19 x .22 cm SSV prox calf - .1 x .11 cm SSV dist calf - .13 x .13 cm. SSV mid calf - .14 x .14 cm Procedure SSV dist calf - .14 x .16 cm. Exam performed in department. ASV prox thigh - .26 x .28 cm This is a venous duplex using B-mode, color ASV mid thigh - .29 x .28 cm flow and spectral Doppler. ASV dist thigh - .33 x .34 cm The exam was diagnostic. ASV knee - .29 x .3 cm ASV prox calf - .26 x .26 ASV mid calf - .27 x .31 cm ASV dist calf - .11 x .14 cm. VL/Saphenous Vein Mapping, Bilat Interpretation Summary Right great spahenous vein patent with measurements above. Right small spahenous vein patent with measurements above. Left great spahenous vein patent with measurements above. Left accessory spahenous vein patent with measurements above. Left small spahenous vein patent with measurements above. Ordering Physician: Boom Arteaga Performed By: Bill Valadez RVT
== END | disposition home or self-care (01) ==
LOC: CVS 10:38
PROVIDERS: PCP Nurse Practitioner Family; Referring Provider Surgery Trauma Surgery; Visit Provider Surgery Trauma Surgery
DX: Z01.818 Encounter for other preprocedural examination (principal); I70.223 Atherosclerosis of native arteries of extremities with rest pain, bilateral legs
CPT/HCPCS: 93970

== ENCOUNTER 2022-06-29 05:21 | Inpatient (IN) | payer MEDICAID, SELFPAY ==
[2022-06-16 12:10] LABS: Partial Thromboplast Time 26.7 Seconds (24.1-36.2); Prothrombin Time (Protime)PT. 13.2 SECONDS (11.7-14.9)
[2022-06-29] VITALS (19 sets, daily range): BP systolic 93–155; BP diastolic 44–80; PULSE 70–99; RESP 11–19; TEMP 35.9–36.9; O2SAT 94–100; BMI 30.2
[2022-06-29 05:56] LABS: Internal QC Validated? YES +Cl - CLEAR BKGD; Pregnancy, Urine Negative Negative
[2022-06-29] MEDS: Lactated Ringers 1,000 ML 15 ML IV (06:20)
[2022-06-29 06:40] LABS: Bedside Glucose 295 mg/dL (74-106)
[2022-06-29] MEDS: Insulin Lispro 100 UNIT/ML INSULN.PEN 6 UNIT SC (06:43)
--- NOTE | 2022-06-29 07:23 | PCM.HP.BLA ---
History and Physical Allergies Penicillins [PCN] Allergy (Verified 06/13/22 13:04) Othermetformin Adverse Reaction (Intermediate, Verified 06/13/22 13:04) Nausea/Vom/Diarrhea Medications aspirin 81 mg tablet,delayed release 81 mg PO DAILY@0800 [facility] 04/29/20 [History Confirmed 06/13/22] clopidogrel 75 mg tablet 75 mg PO DAILY anti platelet #90 tabs 05/15/20 [Rx Confirmed 06/13/22] glipizide 10 mg tablet 10 mg PO DAILY 08/27/20 [History Confirmed 06/13/22] pantoprazole 40 mg tablet,delayed release 40 mg PO DAILY 08/27/20 [History Confirmed 06/13/22] atorvastatin 40 mg tablet 40 mg PO QHS 04/22/21 [History Confirmed 06/13/22] losartan 25 mg tablet 25 mg PO DAILY #90 tabs 04/22/21 [Rx Confirmed 06/13/22] metoprolol succinate 25 mg tablet,extended release 24 hr 25 mg PO DAILY #90 tabs 04/22/21 [Rx Confirmed 06/13/22] amitriptyline 25 mg tablet 25 mg PO QHS 07/20/21 [History Confirmed 06/13/22] ferrous sulfate 325 mg (65 mg iron) tablet 325 mg PO Q OTHER DAY 07/20/21 [History Confirmed 06/13/22] cilostazol 50 mg tablet 50 mg PO BID #60 tabs 05/12/22 [Rx Confirmed 06/13/22] dulaglutide 1.5 mg/0.5 mL subcutaneous pen injector (Trulicity) 1.5 mg subcut QWEEK 05/12/22 [History Confirmed 06/13/22] empagliflozin 25 mg tablet (Jardiance) 25 mg PO DAILY 05/12/22 [History Confirmed 06/13/22] PFSH Medical History? 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 History of angioplasty of peripheral vessel (12/25/20) History of coronary artery stent placement (12/25/20) Family History? Mother Heart disease Social History? Smoking Status:? Current every day smoker tobacco type: cigarettes alcohol intake:? never substance use type:? does not use caffeine:? 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 Right foot/leg continues to ache, worse at night, and short distance claudication. No foot wounds. No access site pain/swelling/ecchymosis. ROS General General: Yes fatigue and weakness; No weight change, appetite, colon cancer or breast cancer HEENT HEENT: Yes difficulty swallowing; No eye injury, eye surgery, swollen glands or hoarseness Endo Endocrine: Yes diabetes mellitus; No thyroid disease, thyroid cancer, Hair loss, heat intolerance or cold intolerance Skin Skin: No rash or changing moles Musc Musculoskeletal: Yes back problems; No arthritis, rheumatoid arthritis, gout or joint pain Cardio Cardiovascular: Yes heart disease, atrial fibrillation, high blood pressure, heart attack, heart stent and shortness of breat with exertion; No murmur, pacemaker, palpitations or chest pain Psych Psychiatric: Yes depression and anxiety; No hearing voices Resp Respiratory: No shortness of breath, Yes sleep apnea, No cough, No COPD, No asthma, No emphysema and No wheezing Gastro Gastrointestinal: Yes abdominal pain, No nausea or vomiting, Yes diarrhea, Yes constipation, No blood in stool, No acid reflux, Yes hemorrhoids, No ulcers, No gallbladder problem and No black,tarry stools Song Hematologic: Yes blood thinners, No blood disorders, No bleeding, No anemia and No blood clots Neuro Neurologic: No system reviewed and no additional complaints, except as documented, No as per HPI, No abnormal gait, No abnormal hearing, No abnormal movements, No abnormal speech, No behavioral changes, Yes burning sensations, No confusion, No convulsions, No disequilibrium, No dizziness, No localized weakness, No frequent falls, No headache(s), No lack of coordination, No loss of vision, No memory loss, Yes numbness, No other visual disturbances, Yes radicular pain, Yes restless legs, No sensory deficit, No syncope, Yes tingling, No tremor(s), Yes weakness and No other Exam Const General: cooperative, healthy appearing, comfortable, no acute distress and well developed Nutritional Appearance: well nourished Orientation: alert, awake and oriented x3 HENMT Head: normocephalic and atraumatic Ears: hearing grossly normal bilaterally Nose: external nose normal Eyes General: appearance normal, both eyes and all related structures EOM: EOM intact bilaterally Neck Neck: normal visual inspection, full ROM and trachea midline Resp Effort & Inspection: normal respiratory effort, able to speak in complete sentences, symmetric chest movement, no audible wheezes, not labored, no stridor and no use of accessory muscles Cardio Rate: regular rate Rhythm: regular rhythm Pulses: brachial pulses present, radial pulses present and femoral pulses present Skin General: no rashes or lesions noted and no erythema Wounds: no wounds Neuro Cranial Nerves: CN's II-XI intact bilaterally and EOM intact bilaterally Speech: speech normal Gait: normal gait Motor: strength 5/5 throughout Sensory Exam: no sensory deficits noted Psych Appearance: grossly normal and well kempt Mental Status: mental status grossly normal Mood: congruent mood Speech and Movement: speech and movement normal Thought Content: normal Judgment: judgment good Coding Level of Care Code Off vis,est,level 3 Diagnoses Atherosclerosis of [place] arteries of extremities with rest pain, bilateral legs? I70.223 Assessment and Plan Assessment and Plan (1) Atherosclerosis of [place] arteries of extremities with rest pain, bilateral legs: ?Status:?Chronic -right fem pop, sartorius flap, possible femoral endarterectomy
[2022-06-29] MEDS: Heparin 10,000 UNITS/10 ML Vial 10000 UNITS (08:19)
[2022-06-29] MEDS: Heparin Injection (Vial) 5,000 UNIT/ML VIAL 5000 UNIT (10:51)
[2022-06-29 11:30] LABS: Bedside Glucose 194 mg/dL (74-106)
--- NOTE | 2022-06-29 13:20 | PCM.OPRPT ---
Report of Operation Date of Procedure: 06/29/22 Pre-Operative Diagnosis: atherosclerosis with rest pain right lower extremity Post-Operative Diagnosis: same Surgery/Procedure Performed:: right fem-above knee popliteal bypass with reversed GSV right sartorius flap Description of Surgical Findings:: +PT biphasic Surgeon: Boom Arteaga Type of Anesthesia: General Estimated Blood Loss (mL): 300 Description of Procedure: HPI: Patient is a 52-year-old female with atherosclerosis and rest pain in the right lower extremity. She had preoperative imaging which revealed superficial femoral artery occlusion with reconstitution of the above-knee popliteal artery. She also had vein mapping which suggested borderline acceptable great saphenous vein. Endovascular efforts at reperfusion were unsuccessful so she presents now for right lower extremity open revascularization. She has significant risk factors for infection including previous serious femoral surgical site infection on the contralateral side, ongoing smoking, diabetes, obesity. Given her risk factors a sartorius flap will be performed in conjunction to the bypass. Saphenous vein was evaluated with ultrasound in the operating room and found to be satisfactory caliber so the plan is for reverse saphenous vein bypass. Description of procedure: Upon obtaining form consent and verification correct patient received site patient was taken to the operating where she was placed under general anesthesia. She was then positioned prepped and draped in usual sterile fashion a timeout was performed. Ultrasound used to evaluate and hazel the great saphenous vein along the medial aspect of the thigh. Oblique incision made 1 fingerbreadth inferior to the angle ligament both electrocautery was dissect down through subcutaneous fatty tissue. Self-retaining retractors were put in position further dissection carried down to the femoral sheath which was then incised vertically and the self-retaining retractors moved deeper into the wound. Sharp dissection was then used dissect free the common femoral artery proximal to the inguinal ligament and distally down to just above the bifurcation. A right angle used to place a vessel loop proximal and distal and return attention to the distal target exposure. Longitudinal incision made between the groove of the sartorius and abductor muscles and Bovie electrocautery was dissect down through subcutaneous tissue to level the fascia. Fascia was then incised and self-retaining retractors moved deeper in the wound and then Bovie dissection carried down until the popliteal artery was visualized. This point sharp dissection used to dissect free proximal and distal with care taken to identify and protect the adjacent vein. A right angle used to place a vessel proximal and distal. Next the saphenous vein was harvested via skip incisions with all side branches ligated with silk ties and divided. Once a satisfactory length of saphenous vein had been mobilized the tunneler was then used to tunnel from the popliteal to the femoral incision. The patient was then heparinized and allowed to circulate for 5 minutes at which point serial ACT's were used to adjust heparin dosing. [place] of the saphenous vein was completed with the distal vessel ligated with silk ties and medium placed and then divided. The vein was then extracted from the harvest sites and the saphenofemoral junction was clamped and divided and oversewn with a 5-0 Prolene. The vein was then flushed with heparinized saline and all sidebranches assessed with no obvious leak. The common femoral artery was then occluded with Vesseloops in longitudinal arteriotomy created with 11 extended Hernandez scissors. The vein was then oriented in reverse fashion and the end beveled to match the arteriotomy. Anastomosis performed using a 6-0 Prolene in a running fashion. After the suture line was completed the clamps were removed and satisfactory stasis was noted. The vein was then marked to maintain orientation and clamped just beyond the anastomosis. The vein was then secured to the tunneler and pulled through to the distal surgical site. The popliteal artery was then occluded with Vesseloops in longitudinal arteriotomy created with 11 blade extended Hernandez scissors. The vein was then beveled to match the arteriotomy and anastomosis performed using 6-0 Prolene in a running fashion. Prior to completing the suture line the vessels were backbled. After completing the suture line clamps were removed and satisfactory stasis was noted and there is a palpable pulse in the bypass as well as the outflow popliteal artery. Patient was then reversed with protamine and the incisions inspected for hemostasis. We then turned our attention to the sartorius flap and noted dissection the femoral incision was carried laterally to the fascia overlying the sartorius. This was then incised vertically up to the anterior superior iliac spine. The sartorius was then mobilized along its lateral and medial edge and the insertion divided with Bovie. The muscle was then transposed over the femoral vessels without any tension. It was then secured in position using a 2-0 Vicryl interrupted suture. The incision was then closed with 3-0 Vicryl followed by 4 Monocryl and Dermabond for the skin. A Prevena wound VAC was placed on the femoral incision. At the conclusion of case patient was awake anesthesia taken to the intensive care unit for hemodynamic and vascular monitoring.
[2022-06-29] MEDS: 0.45% Normal Saline 1,000 ML 75 ML IV (14:06)
[2022-06-29] MEDS: Insulin Lispro 100 UNIT/ML INSULN.PEN SC ×2 (15:46→21:55)
[2022-06-29] MEDS: glipiZIDE 10 MG Tablet 20 MG PO (15:46)
[2022-06-29 16:06] LABS: Bedside Glucose 215 mg/dL (74-106)
[2022-06-29 16:08] LABS: ACT Activated Clotting Time 143 sec (74-137)
[2022-06-29 16:09] LABS: ACT Activated Clotting Time 281 sec (74-137)
[2022-06-29 16:10] LABS: ACT Activated Clotting Time 281 sec (74-137)
[2022-06-29] MEDS: HEPARIN/D5w 25,000 UNITS 25,000 UNITS/250 ML IV.SOLN. 5 UNITS CONT INF (16:37)
[2022-06-29] MEDS: oxyCODONE 5 MG Tablet PO (16:42)
[2022-06-29] MEDS: Amitriptyline 25 MG Tablet PO (21:51)
[2022-06-29] MEDS: Acetaminophen 500 MG Tablet 1000 MG PO (21:51)
[2022-06-29] MEDS: Cilostazol 50 MG Tablet PO (21:51)
[2022-06-29 22:25] LABS: Bedside Glucose 173 mg/dL (74-106)
[2022-06-30] VITALS (24 sets, daily range): BP systolic 89–134; BP diastolic 52–73; PULSE 83–112; RESP 10–24; TEMP 36.7–37.3; O2SAT 92–100; BMI 30.5
[2022-06-30] MEDS: oxyCODONE 5 MG Tablet PO ×3 (02:33→21:53)
[2022-06-30] MEDS: 0.45% Normal Saline 1,000 ML 75 ML IV (02:33)
[2022-06-30 04:11] LABS: Absolute Lymphocyte Count 2.32 X10^3/uL (0.83-4.51); Absolute Neutrophil Count 5.3 X10^3/uL (2.0-7.7); Basophil# 0.06 X10^3/uL; Basophil% 0.7 % (0-1); Eosinophil# 0.07 X10^3/uL; Eosinophils% 0.8 % (0-5); Hematocrit 35.3 % (37-47); Hemoglobin 11.6 g/dL (12.0-15.0); Lymphocyte # 2.32 X10^3/ul (0.83-4.51); Lymphocyte % 27.2 % (19-41); Mean Corp Hgb Conc 32.9 g/dL (32-36); Mean Corpuscular Hgb 29.9 pg (27.0-32.0); Mean Platelet Vol. 10.9 fl (6.2-12.0); Monocyte# 0.74 X10^3/uL; Monocyte% 8.7 % (0-10); NRBC Flagged by Analyzer 0 % (0-5); Neutrophil # 5.32 X10^3/uL (2.7-7.7); Neutrophil % 62.2 % (47-70); Platelet Count 159 K/mm3 (150-450); RBC Distribution Width CV 12.6 % (11.6-14.6); RBC Distribution Width SD 41.4 fl (35.1-43.9); Red Blood Count 3.88 M/mm3 (4.2-5.4); White Blood Count 8.5 K/mm3 (4.4-11.0)
[2022-06-30 04:28] LABS: Anion Gap 4 (5-15); BUN 12 mg/dL (7-18); BUN/Creat Ratio 21.7 RATIO (10-20); Calcium,Total 8.3 mg/dL (8.5-10.1); Chloride 113 mmol/L (98-107); Creatinine, Serum 0.55 mg/dL (0.55-1.02); EST Glomerular Filtration Rate 122 mL/min (>60); Est Glom Filt Rate - Afr Amer 148 mL/min (>60); Estimated Creatinine Clearance 103.32 ml/min; Glucose 139 mg/dL (74-106); Potassium 3.8 mmol/L (3.5-5.1); Sodium Level 142 mmol/L (136-145)
[2022-06-30] MEDS: Acetaminophen 500 MG Tablet 1000 MG PO ×3 (06:01→21:30)
[2022-06-30 07:40] LABS: Bedside Glucose 121 mg/dL (74-106)
[2022-06-30] MEDS: Pantoprazole Sodium 40 MG Tablet PO (08:41)
[2022-06-30] MEDS: glipiZIDE 10 MG Tablet 20 MG PO ×2 (08:41→16:34)
[2022-06-30] MEDS: Empagliflozin 25 MG Tablet PO (08:41)
[2022-06-30] MEDS: Losartan Potassium 25 MG Tablet PO (08:41)
[2022-06-30] MEDS: Aspirin E.C. 81 MG Tablet PO (08:41)
[2022-06-30] MEDS: Cilostazol 50 MG Tablet PO ×2 (08:41→21:30)
[2022-06-30] MEDS: Isosorbide Mononitrate 60 MG Tablet PO (08:41)
[2022-06-30] MEDS: Clopidogrel Bisulfate 75 MG Tablet PO (08:41)
--- NOTE | 2022-06-30 09:30 | CASEMGMT ---
Addendum entered by Suri Diaz 07/01/22 14:30: Pt states she would be able to borrow a walker but then states, I should probably get one of my own. Pt denies having preference of DME co, made aware [facility] is affiliated w/[facility], and states okay for [facility]. Will obtain script from Dr Arteaga and sent to [facility] via [employer] when available. Original Note: ZEYNEP COLUNGA Assessment: Face to Face with pt for initial transition planning/care coordination assessment. ZEYNEP COLUNGA introduced self and role at [facility], pt voices understanding and consents to assessment. Pt is A/O x4 and answers all questions appropriately at this time. Pt sitting up in bed in no distress. Care providers, pharmacy, and demographics verified/updated. Admitting Dx: R femoral-popliteal bypass, poss endart PCP:Nadege Webber NP Specialists:law Arteaga; Angelica cardio Preferred Pharmacy: [facility] Insurance: [employer] Prescription Benefit: yes LNOK: Malik Lopez, aunt; Lesley Hankins, mother Living Arrangements: Pt lives with aunt and uncle in a mobile home with a ramp to enter. Pt reports she is I in ADL's and denies concerns at home. Transportation: Pt drives self and denies concerns with transportation. Pt aunt is able to transport her until she is medically able to drive again. DME/HHC/SNF: Pt has a grab bar in the tub. Pt does not use AD at home but states she could borrow if needed. Pt denies hx of [facility] and has been to [facility] in the past. Pt states no concerns with going home at time of dc. Pt has not been out of bed yet, will follow therapy. Pt states no further concerns/needs. CM to follow. Advised pt to ask CM if any further question/concerns/needs arise, voices understanding. Pt Goal: Home Plan: Home, follow therapy
--- NOTE | 2022-06-30 10:42 | CASEMGMT ---
Social Work As per RN, pt's family took her money home. Pt mentioned to RN that she didn't know how much was there, and isn't sure that her mom won't spend the money. Pt also declining to get up out of bed with nursing this morning. SW checked in w/pt about the plan from here, as she had said earlier w/CM she will go home. Pt still stating she will go home. SW encouraged pt to get up w/therapy later, so that she can demonstrate she is moving well enough to go home when medically ready. SW also asked pt about the comment regarding her money, and that she wasn't sure he mom wasn't going to spend it. Pt states she was just joking, and she is not concerned her family took her money home. She states they took it home so nobody would take it from her while she was here. Pt denies any concern about financial issues with family. Plan continue to be for home, SW/CM remain available for discharge needs. DARIEL Stoddard
[2022-06-30] MEDS: Insulin Lispro 100 UNIT/ML INSULN.PEN SC ×3 (11:28→21:34)
[2022-06-30 11:45] LABS: Bedside Glucose 152 mg/dL (74-106)
--- NOTE | 2022-06-30 14:21 | PCM.PN.SRG ---
Subjective Subjective Doing well overall. Pain controlled but needed a lot of assistance to get to chair. Pat diet, no N/V. Still with some foot pain though improved. Objective Data Objective Data A&O x 3, NAD RRR resp non labored +DP/PT pulse, mild edema Provena/silver dressings intact Vital Signs: Vital Signs Temp Pulse Resp BP Pulse Ox O2 Del Method O2 Flow Rate 98.5 F 87 15 91/61 100 Room Air 4 06/30/22 12:00 06/30/22 14:00 06/30/22 14:00 06/30/22 14:00 06/30/22 14:00 06/30/22 14:00 06/29/22 13:30 Oxygen Flow Rate (L/min) 4 Oxygen Delivery Method Room Air Weight: 177 lb 14.609 oz Body Mass Index (BMI) 30.5 Intake & Output: Intake and Output for Last 24 Hours 06/28/22 06/29/22 06/30/22 23:59 23:59 23:59 Intake Total 397.02 / 497.02 1496.50 / 1496.50 Output Total 1200 / 1750 1000 / 1000 Balance -802.98 / -1252.98 496.50 / 496.50 Lab / Micro Data Result Diagrams: 06/30/22 04:05 06/30/22 04:05 Labs: Laboratory Results - last 24 hr 06/16/22 11:35: Crossmatch See Detail 06/29/22 07:35: Activated Clotting Time 143 H 06/29/22 10:35: Activated Clotting Time 281 H 06/29/22 11:18: Activated Clotting Time 281 H 06/29/22 15:44: POC Glucose 215 H 06/29/22 21:54: POC Glucose 173 H 06/30/22 04:05: WBC 8.5, RBC 3.88 L, Hgb 11.6 L, Hct 35.3 L, MCV 91.0, MCH 29.9, MCHC 32.9, RDW Std Deviation 41.4, RDW Coeff of Maria R 12.6, Plt Count 159, MPV 10.9, Immature Gran % (Auto) 0.400, Neut % (Auto) 62.2, Lymph % (Auto) 27.2, [place] % (Auto) 8.7, Eos % (Auto) 0.8, Baso % (Auto) 0.7, Absolute Neuts (auto) 5.3, Absolute Lymphs (auto) 2.32, Nucleated RBC % 0 06/30/22 04:05: Sodium 142, Potassium 3.8, Chloride 113 H, Carbon Dioxide 25.0, Anion Gap 4 L, BUN 12, Creatinine 0.55, Estim Creat Clear Calc 103.32, Est GFR (MDRD) Af Amer 148, Est GFR (MDRD) Non-Af 122, BUN/Creatinine Ratio 21.7 H, Glucose 139 H, Calcium 8.3 L 06/30/22 07:21: POC Glucose 121 H 06/30/22 11:25: POC Glucose 152 H Assessment & Plan Assessment/Plan (1) Atherosclerosis of [place] arteries of extremities with rest pain, bilateral legs: PLAN: -POD # 1 right fem-pop with GSV -cont low dose heparin -advance diet -dc ritchie after back in bed -PT -hopefully function will improve over next 24-48 hours to DC home; not interested in SNF, maybe would consider rehab
[2022-06-30 17:06] LABS: Bedside Glucose 211 mg/dL (74-106)
[2022-06-30] MEDS: Amitriptyline 25 MG Tablet PO (21:31)
[2022-06-30 22:15] LABS: Bedside Glucose 181 mg/dL (74-106)
[2022-07-01] VITALS (24 sets, daily range): BP systolic 92–133; BP diastolic 58–93; PULSE 87–113; RESP 10–24; TEMP 36.1–37.1; O2SAT 94–97; BMI 31.1
[2022-07-01] MEDS: Acetaminophen 500 MG Tablet 1000 MG PO ×3 (04:24→21:49)
[2022-07-01] MEDS: Empagliflozin 25 MG Tablet PO (08:22)
[2022-07-01] MEDS: Pantoprazole Sodium 40 MG Tablet PO (08:22)
[2022-07-01] MEDS: Clopidogrel Bisulfate 75 MG Tablet PO (08:22)
[2022-07-01] MEDS: Cilostazol 50 MG Tablet PO ×2 (08:22→21:49)
[2022-07-01] MEDS: Losartan Potassium 25 MG Tablet PO (08:23)
[2022-07-01] MEDS: Aspirin E.C. 81 MG Tablet PO (08:23)
[2022-07-01] MEDS: glipiZIDE 10 MG Tablet 20 MG PO ×2 (08:23→15:59)
[2022-07-01] MEDS: Isosorbide Mononitrate 60 MG Tablet PO (08:23)
[2022-07-01 08:45] LABS: Bedside Glucose 131 mg/dL (74-106)
[2022-07-01] MEDS: Insulin Lispro 100 UNIT/ML INSULN.PEN SC (11:15)
[2022-07-01 11:36] LABS: Bedside Glucose 159 mg/dL (74-106)
[2022-07-01] MEDS: HEPARIN/D5w 25,000 UNITS 25,000 UNITS/250 ML IV.SOLN. 5 UNITS CONT INF (13:28)
--- NOTE | 2022-07-01 13:45 | CASEMGMT ---
Addendum entered by Suri Diaz 07/01/22 15:56: Script obtained from PHONG Tolentino, for FWW and sent to [facility] via [employer]. FWW delivered to pt's room at this time. Ayaka made aware of difficulty locating HHC that is able to accept pt and states is okay for pt to do OP therapy if she desires. Pt made aware of same and states may be willing to do OP therapy, but states would not have transportation to go to OP therapy. She was made aware of [facility] Van transportation to [facility] and states would be interested in this. Script obtained for OP therapy and will provide to pt along w/[facility] Van transport info, if unable to find accepting HHC. Original Note: ZEYNEP COLUNGA NOTE: RN CM to room to discuss discharge planning. Pt states therapy has worked w/her and she states she did need some assist initially w/getting up, but states thought she did better today than yesterday and states she feels safe to discharge home. She states her aunt, whom she lives with, is able to assist her, if needed. She states she does not wish to go to a SNF. Discussed HHC. Pt states she does want HHC and denies having preference of HHC. She declines wanting a list to look over, stating for ZEYNEP COLUNGA to just find someone who will cover her area and who is in network w/her insurance. She states would only need therapy, not nursing. Order placed for HHC: PT/OT. business plannerTerri, notified of need for HHC referral and that pt may be ready for d/c either today or tomorrow. Dacia ENGEL RN, CM
--- NOTE | 2022-07-01 14:20 | CASEMGMT ---
Discharge Planning Referrals for PT/OT were sent to [facility], [facility], [facility], and [facility] via [employer]. Terri Marino
--- NOTE | 2022-07-01 15:17 | CASEMGMT ---
Discharge Planning [facility] declined, both due to being out of service area. [facility] declined due to inadequate staffing. RN CM notified. Terri Marino
--- NOTE | 2022-07-01 15:49 | CASEMGMT ---
Discharge Planning [facility] declined d/t being out of service area and [facility] stated they are not a provider for Jake OSCAR RN CM notified. Terri Marino
--- NOTE | 2022-07-01 15:56 | PN.SURG_ITS ---
Subjective Subjective Patient is doing well overall today. Her pain is well controlled, primarily using tylenol with occasional PRN oxycodone. She denies any new or worsening pain in her RLE, expected discomfort around the incision sites. The Prevena vac dressing is maintaining good seal. She felt pretty good walking with walker for assistance today, but she still doesn't feel like she is able to get into and out of her bed on her own. Case management is trying to coordinate HHC with PT for her, but difficult to find agencies which go out to where her home is located. She adamantly denies SNF or rehab facility, she wants to go to her home. She does have family that can help her when she goes home but not available tonight so she would like to stay tonight. Objective Data Objective Data Vital Signs: Vital Signs Temp Pulse Resp BP Pulse Ox O2 Del Method O2 Flow Rate 98.0 F 105 H 17 101/59 L 96 Room Air 4 07/01/22 12:00 07/01/22 15:00 07/01/22 15:00 07/01/22 15:00 07/01/22 15:00 07/01/22 15:00 06/29/22 13:30 Oxygen Flow Rate (L/min) 4 Oxygen Delivery Method Room Air Weight: 181 lb 7.047 oz Body Mass Index (BMI) 31.1 Intake & Output: Intake and Output for Last 24 Hours 06/29/22 06/30/22 07/01/22 23:59 23:59 23:59 Intake Total 397.02 / 497.02 3041.50 / 3041.50 351.5 / 351.5 Output Total 1200 / 1750 1950 / 2200 1525 / 1525 Balance -802.98 / -1252.98 1091.50 / 841.50 -1173.5 / -1173.5 Lab / Micro Data Result Diagrams: 06/30/22 04:05 06/30/22 04:05 Labs: Laboratory Results - last 24 hr 06/30/22 16:32: POC Glucose 211 H 06/30/22 21:33: POC Glucose 181 H 07/01/22 08:19: POC Glucose 131 H 07/01/22 11:13: POC Glucose 159 H Physical Exam Const alert, oriented x3 and no apparent distress General Appearance: cooperative HEENT normocephalic, head/scalp atraumatic, hearing grossly normal bilaterally and external ears normal Eyes EOMs intact bilaterally General Eye: normal appearance of both eyes Neck General: normal visual inspection and trachea midline Resp normal respiratory effort, normal air movement, no retractions and no use of accessory muscles Effort and Inspection: able to speak in complete sentences Cardio Cardio Narrative: Slightly tachy, regular rhythm Extremity Extremity Narrative: +DP/PT pulse RLE, mild edema Prevena vac dressing in groin intact and maintaining seal. Silver dressings along medial RLE intact, no bleed-through. Neuro CN's II-XII intact bilaterally and moves all extremities Speech: speech normal Psych mental status grossly normal Attitude: calm Activity / Motor Behavior: appropriate eye contact Speech: normal speech Assessment & Plan Assessment/Plan (1) Atherosclerosis of [place] arteries of extremities with rest pain, bilateral legs: PLAN: She is POD # 2 right fem-pop with GSV. Will continue low dose heparin. She was slightly tachy today, but was not receiving her metoprolol. She received it this afternoon, will monitor. She is tolerating regular diet. She is voiding without difficulty. Her pain is well controlled. Surgical site dressings will remain in place. If Prevena vac dressing loses seal and it is unable to re-established, then okay to remove and cover with dry dressing. Continue working with PT. Try to get up and out of bed to walk around and to chair tomorrow morning with nursing assistance and walker. Anticipate d/c tomorrow as long as patient's function continues to improve and feels safe for d/c home with family support. CM will continue to try to arrange HHC.
[2022-07-01] MEDS: Metoprolol Tartrate 25 MG Tablet PO ×2 (16:00→21:50)
--- NOTE | 2022-07-01 16:12 | CASEMGMT ---
Addendum entered by Suri Diaz 07/01/22 16:27: No response from [facility] via [employer]. ZEYNEP COLUNGA attempted to contact [facility] via phone multiple times throughout the afternoon w/out success. Phone will not ring through, a beep is heard, and then call disconnnects. Original Note: ZEYNEP COLUNGA NOTE: Spoke w/Yvonne @ [facility]. She states pt is out of their service area. Pt made aware of no accepting [facility] agencies. Pt provided w/Script for OP therapy and [facility] transportation info/contact #. Questions answered. Pt denies having further discharge planning needs or concerns. Dacia ENGEL RN, CM
[2022-07-01 16:25] LABS: Bedside Glucose 94 mg/dL (74-106)
[2022-07-01] MEDS: Amitriptyline 25 MG Tablet PO (21:50)
[2022-07-01 22:35] LABS: Bedside Glucose 113 mg/dL (74-106)
[2022-07-02] VITALS (8 sets, daily range): BP systolic 106–118; BP diastolic 66–76; PULSE 80–100; RESP 16–18; TEMP 36.3–36.7; O2SAT 96–100; BMI 31.1
[2022-07-02] MEDS: Acetaminophen 500 MG Tablet 1000 MG PO ×2 (06:02→15:00)
[2022-07-02] MEDS: glipiZIDE 10 MG Tablet 20 MG PO ×2 (07:52→16:48)
[2022-07-02] MEDS: Losartan Potassium 25 MG Tablet PO (07:52)
[2022-07-02] MEDS: Clopidogrel Bisulfate 75 MG Tablet PO (07:52)
[2022-07-02] MEDS: Aspirin E.C. 81 MG Tablet PO (07:52)
[2022-07-02] MEDS: Isosorbide Mononitrate 60 MG Tablet PO (07:53)
[2022-07-02] MEDS: Empagliflozin 25 MG Tablet PO (07:53)
[2022-07-02] MEDS: Cilostazol 50 MG Tablet PO (07:53)
[2022-07-02] MEDS: Pantoprazole Sodium 40 MG Tablet PO (07:54)
[2022-07-02] MEDS: 0.9% Saline Lock 10 ML Syringe IV (07:54)
[2022-07-02] MEDS: Metoprolol Tartrate 25 MG Tablet PO (07:54)
[2022-07-02 12:10] LABS: Bedside Glucose 125 mg/dL (74-106)
[2022-07-02] MEDS: Ferrous Sulfate 325 MG Tablet PO (12:12)
[2022-07-02] MEDS: Insulin Lispro 100 UNIT/ML INSULN.PEN SC ×2 (12:12→16:47)
[2022-07-02 12:56] LABS: Bedside Glucose 250 mg/dL (74-106)
--- NOTE | 2022-07-02 14:55 | PCM.DC.SUM ---
Providers Date of Admission: 06/29/22 Date of Discharge: 07/02/22 Primary Care Physician: Nadege Webber, LONNIEC Reason For Visit: rt femoral-popliteal bypass, poss endart Diagnosis Discharge Diagnosis (1) Atherosclerosis of [place] arteries of extremities with rest pain, bilateral legs: Status: Chronic Code(s): I70.223 - Atherosclerosis of [place] arteries of extremities with rest pain, bilateral legs Medications at Discharge Home Medications aspirin 81 mg tablet,delayed release 81 mg PO DAILY@0800 heart health 04/29/20 clopidogrel 75 mg tablet 75 mg PO DAILY anti platelet #90 tabs 05/15/20 glipizide 10 mg tablet 20 mg PO BID DM 08/27/20 pantoprazole 40 mg tablet,delayed release 40 mg PO DAILY GERD 08/27/20 amitriptyline 25 mg tablet 25 mg PO QHS SLEEP 07/20/21 ferrous sulfate 325 mg (65 mg iron) tablet 325 mg PO Q OTHER DAY SUPPLEEMNT 07/20/21 dulaglutide 1.5 mg/0.5 mL subcutaneous pen injector (Trulicity) 1.5 mg subcut MO DIABETES 05/12/22 empagliflozin 25 mg tablet (Jardiance) 25 mg PO DAILY DM 05/12/22 cilostazol 50 mg tablet 50 mg PO BID VASCULAR 06/15/22 isosorbide mononitrate 60 mg tablet,extended release 24 hr 60 mg PO DAILY HEART 06/15/22 losartan 25 mg tablet 25 mg PO DAILY BP 06/15/22 metoprolol tartrate 25 mg tablet 25 mg PO BID blood pressure 07/01/22 oxycodone 5 mg tablet 5 mg PO Q8H PRN PRN Pain Score 4-10 4 days #12 tabs 07/02/22 Hospital Course Operations - (R femoral-popliteal bypass using [place] GSV ) Summary of Care Provided Hospital Course: Patient underwent right femoral-popliteal bypass with GSV on 06/29/2022. The procedure was without complication and she tolerated it well. Following the operation, she was routinely admitted for hemodynamic monitoring. She remained hemodynamically stable throughout her admission. She has expected pain around incision sites in her RLE, but this is well controlled on PO pain medication regimen. She denies any new/worsening pain in her RLE, and the rest pain she was having prior to the operation is significantly improved. Her R DP/PT pulses are palpable. She is voiding without difficulty and tolerating a regular diet. Initially, she had trouble with mobility, especially getting into and out of bed. Today, she is having an easier time getting in and out of bed/chair and walking around, with the assistance of a walker. Patient did not want to go to SNF/rehab. [facility] did try to coordinate HHC, but unfortunately patient lives out of the service area for all of the [facility] accepted by her insurance. Patient will instead continue with PT outpatient at [facility]. She feels safe to discharge home where she has family to support and help her as needed. She udnerstands the surgical site dressings should stay in place until Monday as long as clean/dry/maintaining seal. I did demonstrate how to remove the Prevena wound vac dressing and patient acknowledged understanding. She is medically stable for discharge with outpatient follow-up in our office in 3 weeks. Physical Exam Const alert, oriented x3 and no apparent distress General Appearance: cooperative HEENT normocephalic, head/scalp atraumatic, hearing grossly normal bilaterally and external ears normal Eyes EOMs intact bilaterally General Eye: normal appearance of both eyes Neck General: normal visual inspection and trachea midline Resp normal respiratory effort, normal air movement, no retractions and no use of accessory muscles Effort and Inspection: able to speak in complete sentences Cardio Cardio Narrative: Slightly tachy, regular rhythm Extremity Extremity Narrative: +DP/PT pulse RLE, mild edema Prevena vac dressing in groin intact and maintaining seal. Silver dressings along medial RLE intact, no bleed-through. Neuro CN's II-XII intact bilaterally and moves all extremities Speech: speech normal Psych mental status grossly normal Attitude: calm Activity / Motor Behavior: appropriate eye contact Speech: normal speech Weight / BMI Weight Weight: 181 lb 7.047 oz Body Mass Index (BMI) 31.1 ABG / Lab / Microbiology Data Result Diagrams: 06/30/22 04:05 06/30/22 04:05 Laboratory: Laboratory Results - last 24 hr 07/01/22 15:58: POC Glucose 94 07/01/22 21:52: POC Glucose 113 H 07/02/22 07:49: POC Glucose 125 H 07/02/22 12:09: POC Glucose 250 H D/C Instructions Discharge Diet: Carb Control Diet May shower in (days): 1 May resume sexual activity in: 4-6 weeks Weight Bearing Status: Weight bearing as tolerated Lifting Restricted to (Lbs): 20 Lifting Restrictions: Do not lift greater than 20 pounds for 3 weeks. Call your doctor if your incision/area has: Sudden Increased Bleeding, Increased Pain/ Swelling and Foul Smelling Discharge Call your doctor if you observe: Fever of 101 or Higher, Coldness, Increased Pain and Uncontrolled pain Remove Dressing in: 4 days Additional Dressing/Incision Instructions: If the Prevena vacuum dressing in your right mel is not maintaining seal/alarming and you cannot restore the seal/stop the alarm, you may simply remove it or contact the office for further assistance. However, if it maintains seal without issue, leave in place until Monday07/06/22 which is 1 full week after your surgery to help reduce the risk of seroma/bruising. I demonstrated how to remove the dressing, here are written instructions as a reminder: Hold down the power button until it turns off. Then unscrew the white connecting piece which holds the tubing together. Wait for the purple foam in the dressing to puff up. Then peel the dressing off carefully/gently. Throw the entire unit away. Call the office if you have questions about this process. Leave the dressings down the inside of your right leg in place until Monday07/06/22 as long as they remain clean and dry to reduce the risk of infection. If they become dirty or begin to peel away before then, it is okay to remove these early. Please call the office with any questions or concerns. Once these dressings are removed, you may leave them open to air. They are covered with surgical glue which will peel off on its own over the next few weeks, please refrain from picking at it. Additional Instructions: Do not lift greater than 20 pounds for the next [address] you feel you can safely perform all the necessary movements with your right leg to do so safely. I have prescribed you oxycodone 5mg to be taken up to three times daily as needed for pain. As long as you are taking this medication, do not drive. Do not submerge the incision sites in water/take a bath for 3 weeks. Continue to take your aspirin and plavix as prescribed. Please Follow Up With: Boom Arteaga MD When: 07/21/2022 Meaningful Use Info Meaningful Use Diagnoses (Choose all that apply): None applicable Discharge Plan Admission Admit Date/Time: 06/29/22 05:21 Primary Reason for Your Visit: Right femoral-popliteal bypass with GSV Attending Provider: Boom Arteaga Primary Care Provider: Nadege Webber NP Consulting Providers: Navid Scott Discharge Orders/Prescriptions Prescriptions: New oxycodone 5 mg Tablet 5 mg PO Q8H PRN PRN (Reason: Pain Score 4-10) 4 Days Qty: 12 0RF Continued pantoprazole 40 mg tablet,delayed release (DR/EC) 40 mg PO DAILY Label Comments: TAKE 1 TABLET BY MOUTH ONCE DAILY glipizide 10 mg tablet 20 mg PO BID Label Comments: TAKE 1 TABLET BY MOUTH ONCE DAILY clopidogrel 75 mg tablet 75 mg PO DAILY Qty: 90 3RF amitriptyline 25 mg tablet 25 mg PO QHS ferrous sulfate 325 mg (65 mg iron) tablet 325 mg PO Q OTHER DAY Jardiance 25 mg tablet 25 mg PO DAILY Trulicity 1.5 mg/0.5 mL pen injector 1.5 mg subcut MO aspirin 81 MG tablet 81 mg PO DAILY@0800 isosorbide mononitrate 60 mg Tablet Extended Release 24 Hr 60 mg PO DAILY cilostazol 50 mg tablet 50 mg PO BID losartan 25 mg tablet 25 mg PO DAILY metoprolol tartrate 25 mg tablet 25 mg PO BID Referrals / Follow Up: Nadege Webber NP, DATABASE OPERATOR-C [Primary Care Provider] - Disposition Disposition (needs filled in before D/C Order can be placed): Home, Self Care
[2022-07-02 17:25] LABS: Bedside Glucose 225 mg/dL (74-106)
== END 2022-07-02 17:10 | disposition home or self-care (01) | DRG 181 ==
LOC: ACINP 05:21 → ICU 06-30 09:46 → PCU 07-01 17:58
PROVIDERS: Anesthesiology; Admitting Provider Surgery Trauma Surgery; PCP Nurse Practitioner Family; Referring Provider Surgery Trauma Surgery; Visit Provider Surgery Trauma Surgery
PROC: 041K0ZL Bypass Right Femoral Artery to Popliteal Artery, Open Approach (ICD-10-PCS; principal; 2022-06-29 07:10)
DX: E11.51 Type 2 diabetes mellitus with diabetic peripheral angiopathy without gangrene (principal); I70.92 Chronic total occlusion of artery of the extremities; I70.223 Atherosclerosis of native arteries of extremities with rest pain, bilateral legs; E78.5 Hyperlipidemia, unspecified; F17.210 Nicotine dependence, cigarettes, uncomplicated; I25.2 Old myocardial infarction; I10 Essential (primary) hypertension; I25.5 Ischemic cardiomyopathy; E66.9 Obesity, unspecified; Z79.82 Long term (current) use of aspirin; Z79.02 Long term (current) use of antithrombotics/antiplatelets; Z79.84 Long term (current) use of oral hypoglycemic drugs; Z79.899 Other long term (current) drug therapy; Z95.5 Presence of coronary angioplasty implant and graft; Z68.30 Body mass index [BMI] 30.0-30.9, adult
CPT/HCPCS: 36415; 80048; 81025; 82962; 85025; 85347; 85610; 85730; 86850; 86900; 86901; 86920; 86922; 94762; 97116; 97162; 97166; 97530; 97535; 97802; 99252; 99406; A4648; J7040; J7050; J7120; A4216; G0463; J2405

== ENCOUNTER → 2022-08-08 | Outpatient (CLI) | payer MEDICAID, SELFPAY ==
--- NOTE | 2022-08-08 08:53 | ART_ITS ---
Reason For Study: S/P Rt SFA/POP A BPG Procedure A bilateral lower extremity continuous wave Doppler with analog waveform analysis and ankle brachial indexes. Left Segmental Pressures Left brachial= 149mmHg. Left posterior tibial artery = 94mmHg. Left dorsalis pedis artery = 97mmHg. Left digit = 64 mmHg. The left posterior tibial artery waveforms are monophasic. The left dorsalis pedis waveforms are monophasic. Right Segmental Pressures Right brachial= 155mmHg. Right posterior tibial artery = 147mmHg. Right dorsalis pedis artery = 125mmHg. Right digit = 78 mmHg. The right posterior tibial artery waveforms are biphasic. The right dorsalis pedis waveforms are triphasic. Indices The right ankle brachial index by the posterior tibial artery is 0.95. The right ankle brachial index by the dorsalis pedis is 0.81. The right digital-brachial index is 0.50. The left ankle brachial index by the posterior tibial artery is 0.61. The left ankle brachial index by the dorsalis pedis is 0.63. The left digital-brachial index is 0.41. VL/Ankle Brachial Index Interpretation Summary Right TALIA 0.95, mild arterial insufficiency. Doppler/PVR waveforms of the right ankle mildly diminished. Left TALIA 0.63, moderate arterial insufficiency. Doppler/PVR waveforms of the le ft ankle are moderately diminished. Ordering Physician: Boom Arteaga Referring Physician: Nadege Webber Performed By: Gerardo Chavez, RVT
--- NOTE | 2022-08-08 08:53 | ADUL_ITS ---
Reason For Study: S/P Rt Fem/Pop A BPG Right Velocities Ext. Iliac Artery, dist = 187.2 cm./sec. Common Femoral Artery, mid = 167.8 cm./sec. Supf Femoral Artery, prox = 27.3 cm./sec. Supf Femoral Artery, mid = 0.0 cm./sec. Supf Femoral Artery, dist. = 0.0 cm./sec. SFA appears occluded from mid to distal. Bypass Graft is noted at Prox SFA and appearts to anastomose at Prox POP A. Bypass graft, prox [place] vessel (prox SFA) = 25.4 cm./sec. Bypass graft, prox. anastamosis = 210.3 cm./sec. Bypass graft, prox.= 171.1 Bypass graft, mid = 110.4 cm./sec. Bypass graft, dist = 128.6 cm./sec. Bypass graft, dist anastamosis = 100.0 cm./sec. Bypass graft, dist [place] vessel (prox POP A) = 87.1 cm./sec. A non vascularized anechoic structure measuring approximately 2.9cm x 2.0cm is noted around the distal anastomosis site. Profunda Femoral Artery = 67.4 cm./sec. Popliteal Artery, mid = 89.7 cm./sec. Post. Tibial Artery, prox = 84.0 cm./sec. Post. Tibial Artery, mid = 97.5 cm./sec. Post. Tibial Artery, dist = 100.0 cm./sec. Peroneal Artery, prox = 74.1 cm./sec. Peroneal Artery, mid = 71.5 cm./sec. Peroneal Artery,dist = 56.0 cm./sec. Ant. Tibial Artery, prox = 86.9 cm./sec. Ant. Tibial Artery, mid = 38.4 cm./sec. Ant. Tibial Artery, dist = 45.0 cm./sec. Procedure The exam was diagnostic. /US Art Duplex Unilat Lower Ext Interpretation Summary Right femoral-popliteal bypass patent with normal velocities. A non vascularized anechoic structure measuring approximately 2.9cm x 2.0cm is noted around the distal anastomosis site. Ordering Physician: Boom Arteaga Referring Physician: Boom Arteaga MD Performed By: Gerardo Chavez RVT
== END | disposition home or self-care (01) ==
LOC: CVS 08:52
PROVIDERS: PCP Nurse Practitioner Family; Referring Provider Surgery Trauma Surgery; Visit Provider Surgery Trauma Surgery
DX: I70.223 Atherosclerosis of native arteries of extremities with rest pain, bilateral legs (principal)
CPT/HCPCS: 93922; 93926

== ENCOUNTER → 2022-12-30 | Outpatient (CLI) | payer MEDICAID, SELFPAY ==
--- NOTE | 2022-12-30 12:45 | ART_ITS ---
Reason For Study: s/p Rt Fem-Pop Bypass Procedure A bilateral lower extremity continuous wave Doppler with analog waveform analysis and ankle brachial indexes. Left Segmental Pressures Left brachial= 116mmHg. Left posterior tibial artery = 67mmHg. Left dorsalis pedis artery = 66mmHg. Left digit = 40 mmHg. Right Segmental Pressures Right brachial= 126mmHg. Right posterior tibial artery = 126mmHg. Right dorsalis pedis artery = 115mmHg. Right digit = 76 mmHg. Indices The right ankle brachial index by the posterior tibial artery is 1.00. The right ankle brachial index by the dorsalis pedis is 0.91. The right digital-brachial index is 0.60. The left ankle brachial index by the posterior tibial artery is 0.53. The left ankle brachial index by the dorsalis pedis is 0.52. The left digital-brachial index is 0.32. VL/Ankle Brachial Index Interpretation Summary Right TALIA 1, normal. Doppler/PVR waveforms of the right leg normal at rest. TBI diminished, pedal/digit disease vs spasm Left TALIA 0.53, severe arterial insufficiency. Doppler/PVR waveforms of the left ankle severely diminished at rest Ordering Physician: Ayaka Amado Referring Physician: Vernon Webber Performed By: Nicole Odonnell RDCS/RVT
--- NOTE | 2022-12-30 12:45 | ADUL_ITS ---
Version 2 Reason For Study: s/p Rt Fem-Pop Right Velocities Ext. Iliac Artery, dist = 110 cm./sec. Common Femoral Artery, mid = 136 cm./sec. Bypass graft, prox. anastamosis = 216 cm/s Bypass graft, prox.= 86cm/s Bypass graft, mid = 97cm/s Bypass graft, dist = 57cm/s Bypass graft, dist anastamosis = 41cm/s. Profunda Femoral Artery = 61 cm./sec. Popliteal Artery, mid = 72 cm./sec. Post. Tibial Artery, prox = 58 cm./sec. Post. Tibial Artery, mid = 75 cm./sec. Post. Tibial Artery, dist = 50 cm./sec. Peroneal Artery, prox = 62 cm./sec. Peroneal Artery, mid = 45 cm./sec. Peroneal Artery,dist = 32 cm./sec. Ant. Tibial Artery, prox = 74 cm./sec. Ant. Tibial Artery, mid = 34 cm./sec. Ant. Tibial Artery, dist = 36 cm./sec. /US Art Duplex Unilat Lower Ext Interpretation Summary Right femoral-popliteal bypass patent with normal velocities throughout Ordering Physician: Ayaka Amado Referring Physician: Vernon Webber Performed By: Nicole Odonnell, ALEXANDRE, RVT
== END | disposition home or self-care (01) ==
LOC: CVS 12:44
PROVIDERS: PCP Nurse Practitioner Family; Referring Provider Physician Assistant; Visit Provider Physician Assistant
DX: I70.223 Atherosclerosis of native arteries of extremities with rest pain, bilateral legs (principal); Z95.828 Presence of other vascular implants and grafts
CPT/HCPCS: 93922; 93926

== ENCOUNTER → 2023-04-05 | Outpatient (CLI) | payer MEDICARE, MEDICAID, SELFPAY ==
--- NOTE | 2023-04-05 09:40 | ART_ITS ---
Reason For Study: S/P Rt Fem-pop bypass Procedure A bilateral lower extremity continuous wave Doppler with analog waveform analysis and ankle brachial indexes. Left Segmental Pressures Left brachial= 131mmHg. Left posterior tibial artery = 73mmHg. Left dorsalis pedis artery = 72mmHg. Left digit = 50 mmHg. The left dorsalis pedis waveforms are monophasic. The left posterior tibial artery waveforms are monophasic. Right Segmental Pressures Right brachial= 124mmHg. Right posterior tibial artery = 138mmHg. Right dorsalis pedis artery = 120mmHg. Right digit = 63 mmHg. The right dorsalis pedis waveforms are biphasic. The right posterior tibial artery waveforms are triphasic. Indices The right ankle brachial index by the dorsalis pedis is 0.92. The right ankle brachial index by the posterior tibial artery is 1.05. The right digital-brachial index is 0.48. The left ankle brachial index by the dorsalis pedis is 0.55. The left ankle brachial index by the posterior tibial artery is 0.56. The left digital-brachial index is 0.38. VL/Ankle Brachial Index Interpretation Summary Right TALIA 1.05, normal. Doppler/PVR waveforms of the right ankle normal at rest . TBI diminished, pedal/digit disease vs spasm Left TALIA 0.56, moderate arterial insufficiency. Doppler/PVR waveforms of the le ft ankle moderately diminished at rest. Ordering Physician: Ayaka Amado Referring Physician: Nadege Webber Performed By: Amanda Luna RVT
--- NOTE | 2023-04-05 09:40 | ADUL_ITS ---
Reason For Study: S/P Rt Fem-pop bypass Right Velocities Ext. Iliac Artery, dist = 123.7 cm./sec. Common Femoral Artery, mid = 171 cm./sec. Bypass graft, prox. anastamosis = 226 cm/sec. Bypass graft, prox.= 98.6 cm/sec. Bypass graft, mid = 76.5 cm/sec. Bypass graft, dist = 76.5 cm/sec. Bypass graft, dist anastamosis = 65.6 cm/sec. Profunda Femoral Artery = 65.6 cm./sec. Popliteal Artery, mid = 74.7 cm./sec. Post. Tibial Artery, prox = 76.5 cm./sec. Post. Tibial Artery, mid = 82 cm./sec. Post. Tibial Artery, dist = 65.6 cm./sec. Peroneal Artery, prox = 47.2 cm./sec. Peroneal Artery, mid = 55.9 cm./sec. Peroneal Artery,dist = 39.5 cm./sec. Ant. Tibial Artery, prox = 91.1 cm./sec. Ant. Tibial Artery, mid = 39.5 cm./sec. Ant. Tibial Artery, dist = 22.6 cm./sec. Procedure Exam performed in department. /US Art Duplex Unilat Lower Ext Interpretation Summary Patent right femoral-popliteal bypass with normal velocities and no evidence of stenosis Ordering Physician: Ayaka Amado Referring Physician: Nadege Webber Performed By: Amanda Luna RVT
== END | disposition home or self-care (01) ==
PROVIDERS: PCP Nurse Practitioner Family; Referring Provider Physician Assistant; Visit Provider Physician Assistant
DX: Z48.812 Encounter for surgical aftercare following surgery on the circulatory system (principal); I70.223 Atherosclerosis of native arteries of extremities with rest pain, bilateral legs
CPT/HCPCS: 93922; 93926

== ENCOUNTER → 2023-10-05 | Outpatient (CLI) | payer MEDICARE, SELFPAY ==
--- NOTE | 2023-10-05 09:47 | ADU_ITS ---
Reason For Study: S/P Rt fem-pop ypass, Lt fem endarectomy/thrombectomy Right Velocities Left Velocities Ext. Iliac Artery, dist = 119.2 cm./sec. Ext Iliac Artery, dist = 55.4 cm./sec. Common Femoral Artery, prox = 150.1 cm./sec. Common Femoral Artery, mid = 193.6 cm./sec. Common Femoral Artery, mid = 81 cm./sec. SFA prox-mid, No Flow. Fem-Pop bypass Supf. Femoral Artery, dist = 25.4 cm./sec. Bypass graft, prox. anastamosis = 201.9 cm/sec. Profunda Femoral Artery = 177.5 cm./sec. Bypass graft, prox.= 93 cm/sec. Popliteal Artery, mid = 33 cm./sec. Bypass graft, mid = 72.9 cm/sec. Post. Tibial Artery, prox = 33 cm./sec. Bypass graft, dist = 45 cm/sec. Post Tibial Artery, mid = 30.1 cm./sec. Bypass graft, dist anastamosis = 60.3 cm/sec. Post Tibial Artery, dist. = 35.8 cm./sec. Profunda Femoral Artery = 52.7 cm./sec. Peroneal Artery, prox = 19.9 cm./sec. Popliteal Artery, prox. = 54.8 cm./sec. Peroneal Artery, mid = 20.6 cm./sec. Popliteal Artery, mid = 48.1 cm./sec. Peroneal Artery,dist. = 8.6 cm./sec. Post. Tibial Artery, prox = 76.4 cm./sec. Ant.Tibial Artery, prox = 26.7 cm./sec. Post. Tibial Artery, mid = 84.6 cm./sec. Ant Tibial Artery, mid = 20.1 cm./sec. Post. Tibial Artery, dist = 57.6 cm./sec. Ant. Tibial Artery, distal = 21.6 cm./sec. Peroneal Artery, prox = 47.8 cm./sec. Peroneal Artery, mid = 63.7 cm./sec. Peroneal Artery,dist = 46.5 cm./sec. Ant. Tibial Artery, prox = 46.5 cm./sec. Ant. Tibial Artery, mid = 18.2 cm./sec. MYRNA distal, Retrograde flow noted. Procedure Exam performed in department. VL/US Art Duplex Bilat Lower Ext Interpretation Summary Patent right femoral-popliteal bypass with normal velocities and no evidence of stenosis. Retrograde flow in the anterior tibial artery. Left common femoral artery patent with normal velocities. SFA proximal occlusio n with distal reconstitution. Ordering Physician: Ayaka Amado Referring Physician: Nadege Webber Performed By: Amanda Luna RVT
--- NOTE | 2023-10-05 09:47 | ART_ITS ---
Reason For Study: S/P Rt fem-pop ypass, Lt fem endarectomy/thrombectomy Procedure A bilateral lower extremity continuous wave Doppler with analog waveform analysis and ankle brachial indexes. Left Segmental Pressures Left brachial= 139mmHg. Left posterior tibial artery = 85mmHg. Left dorsalis pedis artery = 84mmHg. Left digit = 64 mmHg. The left dorsalis pedis waveforms are biphasic. The left posterior tibial artery waveforms are biphasic. Right Segmental Pressures Right brachial= 135mmHg. Right posterior tibial artery = 146mmHg. Right dorsalis pedis artery = 128mmHg. Right digit = 93 mmHg. The right dorsalis pedis waveforms are triphasic. The right posterior tibial artery waveforms are triphasic. Indices The right ankle brachial index by the dorsalis pedis is 0.92. The right ankle brachial index by the posterior tibial artery is 1.05. The right digital-brachial index is 0.67. The left ankle brachial index by the dorsalis pedis is 0.60. The left ankle brachial index by the posterior tibial artery is 0.61. The left digital-brachial index is 0.46. VL/Ankle Brachial Index Interpretation Summary Right TALIA 1.05, normal. Doppler/PVR waveforms of the right ankle normal at rest . TBI diminished, pedal/digit disease vs spasm. Left TALIA 0.61, moderate arterial insufficiency. Doppler/PVR waveforms of the le ft ankle moderately diminished at rest. Ordering Physician: Ayaka Amado Referring Physician: Nadege Webber Performed By: Amanda Luna RVT
== END | disposition home or self-care (01) ==
LOC: CVS 09:42
PROVIDERS: PCP Nurse Practitioner Family; Referring Provider Physician Assistant; Visit Provider Physician Assistant
DX: I73.9 Peripheral vascular disease, unspecified (principal); Z48.812 Encounter for surgical aftercare following surgery on the circulatory system
CPT/HCPCS: 93922; 93925

== ENCOUNTER 2023-12-14 08:13 | Day surgery (SDC) | payer MEDICARE, SELFPAY ==
--- NOTE | 2023-12-12 | IMM_PTH ---
PATIENT: WILDER BALDERAS LOC: EN U#:[id number] AGE/SX: 53/F ROOM: RE12/14/[address]: Dr. Douglas Raymundo DO : 1970 BED: DIS: 12/14/2023 SPEC #: [id number] RECD: 12/14/23 13:25 STATUS: MARYURI REQ #: [id number] VARUN: 12/12/23 00:[address]: Douglas Raymundo DEPT: IMMUNOHISTOCHEMISTRY RECD BY: Eduardo Romero ENTERED: 12/14/23 13:25 SP TYPE: IMMUNO OTHR DR: Nadege Webber, AUTOMATION CONTROL INTEGRATOR-C Tissues: Thyroid gland, NOS Procedures: HBME (initial) CD56 (add) CK19 (add) GAL-3 (add) Comments: @ Specimen number changed from [id number] to [id number] @ on 12/14/23 at 1329 by NIEVES. PHYSICIAN & [address] [address] SPECIMEN INFORMATION: Tissue Source: B- Gastric cardia biopsy Clinical Info: Diarrhea, epigastric pain Specimen Number: [id number] CPT code: 21693 METHODOLOGY: Deparaffinized sections of prefer/formalin-fixed tissue or PAP/DQ stained slides are incubated with monoclonal/polyclonal antibodies/oligonucleotide probes. Localization is made via biotin free immunoperoxidase method. Appropriate controls are performed and reacted as expected. Results on target cell population are indicated in the following table: RESULTS: ANTIBODY / CLONE RESULT Block B H Pylori (polyclonal) negative These tests were developed and their performance characteristics determined by [facility]. They may not have been cleared or approved by the U.S. Food and Drug Administration. The FDA has determined that such clearance or approval is not necessary. The above immunohistochemical/dualISH markers are ordered and reviewed by the Pathologist. INTERPRETATION: B. Gastric cardia, biopsy: Negative for Helicobacter pylori organisms. 12/15/2023
--- NOTE | 2023-12-14 08:26 | PRE.ANES_ITS ---
ASA Classification* ASA Classification ASA Classification: 3 Assessment & Plan Anesthesia* Anesthesia Assessment Anesthesia Assessment: Discussed sedation and/or anesthesia options, risks, benefits, and alternatives with patient/parents/legal guardian/POA. Questions invited. The patient/parents/legal guardian/POA seems to understand and agrees to proceed with anesthesia plan. Reviewed the physical assessment, medical history, allergy history and patient home medications list prior to surgery/procedure/anesthetic and documented any changes. Performed airway and anesthesia risk assessments. Anesthesia Type Anesthesia Type: MAC Anesthesia Focused Assessment* Airway Assessment Mouth opens: >3 cm Mallampati Score: II Focused Labs Anesthesia Preop lab: CBC WBC 8.5 K/mm3 (4.4-11.0) 06/30/22 04:05 RBC 3.88 M/mm3 (4.2-5.4) L 06/30/22 04:05 Hgb 11.6 g/dL (12.0-15.0) L 06/30/22 04:05 Hct 35.3 % (37-47) L 06/30/22 04:05 Plt Count 159 K/mm3 (150-450) 06/30/22 04:05 CHEMISTRY Potassium 3.8 mmol/L (3.5-5.1) 06/30/22 04:05 Sodium 142 mmol/L (136-145) 06/30/22 04:05 Magnesium 1.7 mg/dL (1.6-2.6) 03/19/20 04:25 Phosphorus 3.2 mg/dL (2.5-4.9) 03/19/20 04:25 BUN 12 mg/dL (7-18) 06/30/22 04:05 Creatinine 0.55 mg/dL (0.55-1.02) 06/30/22 04:05 Glucose 139 mg/dL (74-106) H 06/30/22 04:05 POC Glucose 225 mg/dL (74-106) H 07/02/22 16:44 TSH 0.75 uIU/mL (0.358-3.74) 03/19/20 04:25 COAG PT 13.2 SECONDS (11.7-14.9) 06/16/22 11:33 Urine Test Negative Negative 06/29/22 05:30 Pre-Assessment Diagnosis/Proposed Procedure Planned Operative Procedure(s): EGD Anesthesia History 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 When Was Last Pacemaker Check QUESTION #4 FULL TEXT: You/Your Family Experience fever (hyperthermia) with Anesthesia Last Oral Intake Last Oral intake: Last Oral Intake NPO since Meds taken in AM with sips of water? Meds patient instructed to take am of surgery PONV PONV - technical maintenance technician: PONV - technical maintenance technician Female Yes 12/13/23 11:04 HX of Motion Sickness No 12/13/23 11:04 HX of N/V After Surgery No 12/13/23 11:04 Non-Smoker No 12/13/23 11:04 Duration of Surgery greater No 12/13/23 11:04 than 60 minutes Number of Risk Factors 1 12/13/23 11:04 PONV Score Low Risk 12/13/23 11:04 Height & Weight Height & Weight: Anesthesia: Height & Weight Height 5 ft 4 in 08/22/23 09:13 Respiratory Assessment Respiratory Assessment - technical maintenance technician: Respiratory Tract Infection Hx - technical maintenance technician Hx Respiratory Tract Infection No 12/13/23 11:04 STOP Sleep Apnea STOP Sleep Apnea - technical maintenance technician: STOP Sleep Apnea - technical maintenance technician Hx Hypertension Yes: CONTROLLED ON MED 12/13/23 11:04 Hx Sleep Apnea No 12/13/23 11:04 CPAP BIPAP Do you snore loudly (louder No 12/13/23 11:04 than talking or can be heard Do you often feel tired/ No 12/13/23 11:04 fatigued/ sleepy during daytime? Has anyone observed you stop No 12/13/23 11:04 breathing during sleep? STOP Results Negative 12/13/23 11:04 QUESTION #5 FULL TEXT : Do you snore loudly (louder than talking or can be heard through closed doors)? 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 Specify any problems Hx of Preganancy in last 3 No 12/13/23 11:04 Months Nurse Filling Out Transfusion VCHRISTIN 12/13/23 11:04 & Questions: Date: 12/13/23 12/13/23 11:04 Time: 11:05 12/13/23 11:04 Patient unable to answer at this time (ie. confused, unrespo /Reproduction History /Reproductive History - technical maintenance technician: /Reproductive Hx- technical maintenance technician Hx Now No 12/13/23 11:04 Gestational Age (in weeks): EDC: Hx Hx Para Hx Section SAB No 12/13/23 11:04 PFSH Medical History Wears glasses Wears dentures Anxiety Diabetes Low iron Easy bruising Restless legs Back pain Migraine headache Injury of head and neck Syncope Dietary restriction Difficulty swallowing Gastric reflux Smoker Leg cramps History of stress test History of echocardiogram Hypertension History of pain when walking History of edema Cardiology follow-up encounter History of heart attack Abscess of groin, left (01/17/21) Ischemia of left lower extremity Ischemic cardiomyopathy Peripheral vascular disease of extremity with claudication 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 Old inferior wall myocardial infarction History of non-ST elevation myocardial infarction (NSTEMI) (12/23/20) Thickening of wall of gallbladder Hyperlipidemia Nicotine dependence Type 2 diabetes mellitus Essential (primary) hypertension Atherosclerosis of coronary artery of [place] heart without angina pectoris Depression Home Medications ?Medication ?Instructions ?Recorded ?Last Taken ?Type glipizide 10 mg tablet 20 mg PO BID DM 08/27/20 Unknown History pantoprazole 40 mg tablet,delayed 40 mg PO DAILY GERD 08/27/20 12/09/23 History release ferrous sulfate 325 mg (65 mg 325 mg PO Q OTHER DAY SUPPLEMENT 07/20/21 12/11/23 History iron) tablet empagliflozin 25 mg tablet 25 mg PO DAILY DM 05/12/22 Unknown History (Jardiance) metoprolol tartrate 25 mg tablet 25 mg PO BID blood pressure 07/01/22 Unknown History cilostazol 50 mg tablet 50 mg PO BID VASCULAR #60 tabs 05/23/23 Unknown Rx atorvastatin 80 mg tablet 80 mg PO QDAY 08/22/23 Unknown History isosorbide mononitrate 60 mg 60 mg PO BID HEART 08/22/23 Unknown History tablet,extended release 24 hr losartan 50 mg tablet 50 mg PO QDAY 08/22/23 Unknown History clopidogrel 75 mg tablet 75 mg PO DAILY anti platelet #90 09/19/23 12/09/23 Rx tabs dulaglutide 3 mg/0.5 mL 3 mg subcut QWEEK 10/10/23 11/29/23 History subcutaneous pen injector (Trulicity) aspirin 81 mg tablet,delayed 81 mg PO DAILY 12/13/23 Unknown History release (Adult Aspirin Regimen) cyanocobalamin (vitamin B-12) 100 100 mcg PO DAILY 12/13/23 Unknown History mcg tablet (Vitamin B-12) Allergy/AdvReac Type Severity Reaction Status Date / Time Penicillins (PCN) Allergy Other Verified 12/13/23 10:55 metformin AdvReac Intermediate Nausea/Vom/ Verified 12/13/23 10:55 Diarrhea Family History Mother Heart disease Surgical History S/P femoral-popliteal bypass surgery (06/29/22) History of cardiac catheterization Hx of tonsillectomy History of angioplasty of peripheral vessel (12/25/20) History of coronary artery stent placement (12/25/20) Social History Smoking Status: Current every day smoker tobacco type: cigarettes alcohol intake: never substance use type: does not use caffeine: Yes Type: coffee Number of servings: 4 and tea Review of Systems (Anesthesia) ROS Narrative System reviewed and no additional complaints, except as documented.
--- NOTE | 2023-12-14 08:44 | PCM.HP.BLA ---
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 Pt has a PMHx of NSTEMI, HTN and PVD. Here today for evaluation of epigastric pain that has been ongoing for years. The pain is dull and is irritated by her bra and pants. The pain does not feel like heartburn to her and it not dependent on food. She has had both constipation and diarrhea for years. She does not take medication for this but tells me iron helps her have a bm. She has never had a colonoscopy or EGD. ROS Const Constitutional: Positive for fatigue and weight change; No fever(s) ENT ENT: No difficulty swallowing Cardio Cardiology: Positive for leg pain with exertion Gastro GI: Positive for abdominal pain; No belching, bloating, change in bowel habits, change in stool character, coffee ground emesis, constipation, cramping, diarrhea, heartburn, difficulty swallowing, feeling full early, excessive flatus, incontinent of stools, Vomiting blood/hematemesis, Blood in stool, loose stools, Black,tarry stools, nausea/dyspepsia, pain with swallowing, vomiting or other Musc Musculoskeletal: Positive for joint pain, back pain, muscle cramps, stiffness, restless legs, leg pain at night and leg pain with exertion Skin Skin: No yellowing of the eye or itchy eyes Neuro Neurology: Positive for restless legs Psych Psychiatric: No anxiety and No depression Endo Endocrine: Positive for fatigue and weight change Aller/Imm Allergy/Immunologic: No itchy eyes Song/Lymp Hematologic/Lymphatic: No easy bleeding or easy bruising Exam Const General: cooperative and comfortable Nutritional Appearance: average body habitus and well nourished [facility] Head: normal to inspection Ears: hearing grossly normal bilaterally Nose: external nose normal Face and sinus: normal facial exam Eyes General: appearance normal, both eyes and all related structures Neck Neck: normal visual inspection Chest Chest palpation & inspection: normal inspection of the chest Resp Effort & Inspection: normal respiratory effort GI Inspection: normal to inspection Auscultation: normal bowel sounds Percussion: normal to percussion Palpation: no hepatosplenomegaly Skin General: no rashes or lesions noted Neuro General: patient alert Extrem General: normal to inspection Psych Affect: normal affect Assessment and Plan Assessment and Plan (1) Diarrhea: (2) Epigastric pain: Status: Acute Plan: Pt is a 53 yo female here today for evaluation of epigastric pain. This has been ongoing for years. The pain is dull in the epigastrium; not associated with eating. She has nausea with this pain but no vomiting. She currently takes pantoprazole 40 mg BID. She will need to have an EGD to rule out GERD, gastroparesis, EOE or gastritis. Other diagnoses I am considering is chronic pancreatitis as she has DM. We will start work up with EGD and order other testing pending the results of the scope. SHe is agreeable to plan. She has constipation alternating with diarrhea for years now. This is manageable to her. I recommended colonoscopy as she has never had a screening. She would like to hold off for now. We will revisit this is in the future. -EGD -Continue pantoprazole -f/u in 6 months I have examined the patient and the H&P has been reviewed. There are no clinical changes since date of exam.
[2023-12-14 08:47] VITALS: BP 124/75; PULSE 68; RESP 16; TEMP 36.2; O2SAT 99; BMI 28.8
[2023-12-14 09:12] LABS: Bedside Glucose 154 mg/dL (74-106)
--- NOTE | 2023-12-14 09:30 | EGD_PTH ---
PATIENT: WILDER BALDERAS LOC: EN U#:[id number] AGE/SX: 53/F ROOM: RE12/14/[address]: Dr. Douglas Raymundo DO : 1970 BED: DIS: 12/14/2023 SPEC #: [id number] RECD: 12/14/23 11:07 STATUS: MARYURI VONNIE #: [id number] VARUN: 12/14/23 09:[address]: Douglas Raymundo DEPT: SURGICAL PATHOLOGY RECD BY: Micheline Arellano ENTERED: 12/14/23 12:03 SP TYPE: EGD BIOPSY OTHR DR: Nadege Webber, BUSINESS LINE MANAGER-C Tissues: A - Duodenum, NOS B - Gastric mucous membrane C - Esophagus, NOS Procedures: Special Stain Group I Surgery Specimen Level IV Alcian Blue/PAS (control) HEADER OPERATION: EGD with biopsy PRE-OP DIAGNOSIS: Diarrhea, epigastric pain TISSUE SUBMITTED: A- Duodenum biopsy, B- Gastric cardia biopsy, C- Distal esophagus biopsy MICROSCOPIC DIAGNOSIS A. Duodenum, biopsy: Fragments of duodenal mucosa, no pathologic diagnosis. B. Gastric cardia, biopsy: Mild gastritis. See microscopic description and comment. C. Distal esophagus, biopsy: Fragments of gastroesophageal mucosa with chronic inflammation. Intestinal metaplasia (goblet cell metaplasia) not identified. See comment. 12/15/2023 COMMENT B. The results of immunohistochemistry for Helicobacter pylori will be reported separately ([id number]). C. Alcian blue/PAS stain with matched control is used in the evaluation of the specimen. MICROSCOPIC DESCRIPTION Slides are reviewed. B. The specimen shows fragments of gastric mucosa with chronic inflammatory cell infiltrates in the lamina propria consisting of lymphocytes and plasma cells, consistent with mild chronic gastritis. GROSS DESCRIPTION A. Received in fixative is one container labeled with the patient's name and designated Duodenum biopsy. The specimen consists of two irregular fragments of light maxwell soft tissue that in aggregate measure 0.6 x 0.5 x 0.1 cm. The specimen is totally submitted in one cassette. B. Received in fixative is one container labeled with the patient's name and designated Gastric cardia biopsy. The specimen consists of two irregular fragments of light maxwell soft tissue that in aggregate measure 1.8 x 0.3 x 0.1 cm. The specimen is totally submitted in one cassette. C. Received in fixative is one container labeled with the patient's name and designated Distal esophagus biopsy. The specimen consists of two irregular fragments of light maxwell soft tissue that in aggregate measure 0.8 x 0.4 x 0.1 cm. The specimen is totally submitted in one cassette. SJ.mr 12/14/2023 TC:3 CPT:80518p2,00195
--- NOTE | 2023-12-14 09:32 | OP.CCLET_ITS ---
12/14/2023 Amaury Cook Re : Upper GI endoscopy procedure for Estephania Mcclure Dear Lawanda This procedure was performed on November. My impressions and recommendations are as follows: Impressions : - LA Grade B reflux esophagitis with no bleeding. Biopsied. - Erosive gastropathy with no stigmata of recent bleeding. Biopsied. - Duodenitis. Biopsied. Recommendations : - Await pathology results. - Continue present medications. My findings are described in the full procedure note, which is enclosed. If I can be of further assistance, please feel free to contact me at . Sincerely, Douglas Raymundo, 12/14/2023 9:31:20 AM This report has been signed electronically.
--- NOTE | 2023-12-14 09:32 | OP.EGD_ITS ---
Patient Name: Estephania Mcclure Procedure Date: 12/14/2023 9:14 AM Date of : 1970 Age: 53 Procedure: Upper GI endoscopy Indications: Epigastric abdominal pain, Functional Dyspepsia, Suspected esophageal reflux Providers: Douglas Raymundo DO Referring MD: Nadege Webber Np-luigi Medicines: Monitored Anesthesia Care Patient Profile: This is a 53 year old female. Refer to note in patient chart for documentation of history and physical. Patient has symptoms of chronic epigastric abdominal pain, chronic dyspepsia, chronic nausea and chronic vomiting. Complications: No immediate complications. Procedure: Pre-Anesthesia Assessment: - Prior to the procedure, a History and Physical was performed, and patient medications and allergies were reviewed. The patient is competent. The risks and benefits of the procedure and the sedation options and risks were discussed with the patient. All questions were answered and informed consent was obtained. Patient identification and proposed procedure were verified by the physician in the pre-procedure area. Mental Status Examination: alert and oriented. Airway Examination: normal oropharyngeal airway and neck mobility. Respiratory Examination: clear to auscultation. CV Examination: normal. Prophylactic Antibiotics: The patient does not require prophylactic antibiotics. Prior Anticoagulants: The patient has taken no anticoagulant or antiplatelet agents except for NSAID medication. ASA Grade Assessment: II - A patient with mild systemic disease. After reviewing the risks and benefits, the patient was deemed in satisfactory condition to undergo the procedure. The anesthesia plan was to use monitored anesthesia care (MAC). Immediately prior to administration of medications, the patient was re-assessed for adequacy to receive sedatives. The heart rate, respiratory rate, oxygen saturations, blood pressure, adequacy of pulmonary ventilation, and response to care were monitored throughout the procedure. The physical status of the patient was re-assessed after the procedure. After obtaining informed consent, the endoscope was passed under direct vision. Throughout the procedure, the patient's blood pressure, pulse, and oxygen saturations were monitored continuously. The Endoscope was introduced through the mouth, and advanced to the second part of duodenum. The upper GI endoscopy was accomplished without difficulty. The patient tolerated the procedure well. Scope In: 9:23:06 AM Scope Out: 9:27:16 AM Total Procedure Duration Time 0 hours 4 minutes 10 seconds Findings: LA Grade B (one or more mucosal breaks greater than 5 mm, not extending between the tops of two mucosal folds) esophagitis with no bleeding was found 35 to 40 cm from the incisors. Biopsies were taken with a cold forceps for histology. Verification of patient identification for the specimen was done. Estimated blood loss was minimal. A few localized 7 mm erosions with no stigmata of recent bleeding were found in the cardia and in the gastric body. Biopsies were taken with a cold forceps for histology. Verification of patient identification for the specimen was done. Estimated blood loss was minimal. Biopsies were taken with a cold forceps for Helicobacter pylori testing. Verification of patient identification for the specimen was done. Estimated blood loss was minimal. Patchy mild inflammation characterized by erosions, erythema and friability was found in the duodenal bulb. Biopsies were taken with a cold forceps for histology. Verification of patient identification for the specimen was done. Impression: - LA Grade B reflux esophagitis with no bleeding. Biopsied. - Erosive gastropathy with no stigmata of recent bleeding. Biopsied. - Duodenitis. Biopsied. Recommendation: - Await pathology results. - Continue present medications. Procedure Code(s): --- Professional --- 37161, Esophagogastroduodenoscopy, flexible, transoral; with biopsy, single or multiple CPT copyright 2021 [employer]. All rights reserved. The codes documented in this report are preliminary and upon phlebotomist medical lab assistant review may be revised to meet current compliance requirements. Douglas Raymundo DO 12/14/2023 9:31:20 AM This report has been signed electronically. Number of Addenda: 0 Note Initiated On: 12/14/2023 9:14 AM
[2023-12-14 09:35] VITALS: BP 124/75; BP 91/56; PULSE 78; RESP 16; TEMP 36.2; O2SAT 93
--- NOTE | 2023-12-14 09:39 | PCM.POST.ANE ---
Anesthesia: Postop Eval I Current Vital Signs Temperature: 97.2 F Pulse Rate: 70 Blood Pressure: 91/56 Respiratory Rate: 14 Pulse Ox: 95 Oxygen Delivery Method: Room Air Assessment Airway patent: Yes Spontaneous unlabored respirations: Yes Mental status: Awake and Calm nausea: No Vomiting: No Anesthesia Complication: No Fluid Hydration Crystalloid volume administer (ml): 30 Total IV fluid infused: 30 Progress Note Anesthesia document: Postop Eval 1 completed: Yes
[2023-12-14 09:40] VITALS: BP 124/75; BP 89/63; PULSE 79; RESP 16; O2SAT 93
[2023-12-14 09:41] VITALS: BP 91/56; PULSE 70; RESP 14; TEMP 36.2; O2SAT 95
[2023-12-14 09:45] VITALS: BP 124/75; BP 98/65; PULSE 78; RESP 16; TEMP 36.2; O2SAT 92
[2023-12-14 09:59] VITALS: BP 124/75
--- NOTE | 2023-12-14 10:08 | PCM.POSTANE2 ---
Anesthesia Postop Eval I Sum Postop Eval Completion status Anesthesia document: Postop Eval 1 completed: Yes Anesthesia Postop Eval I Summary Anesthesia Postop Eval I Summary: Anesthesia Postop Eval I: Assessment Summary Airway patent Yes 12/14/23 09:41 [email or web address] Spontaneous unlabored Yes 12/14/23 09:41 [email or web address] respirations Mental status Awake,Calm 12/14/23 09:41 [email or web address] nausea No 12/14/23 09:41 [email or web address] Vomiting No 12/14/23 09:41 [email or web address] Anesthesia Postop Eval I: Fluid Summary Crystalloid volume administer 30 12/14/23 09:41 [email or web address] (ml) Colloids volume administered ( ml) Blood Product volume administered (ml) Total IV fluid infused 30 12/14/23 09:41 [email or web address] Anesthesia Postop Eval I: Summary Notes Anesthesia Complication No 12/14/23 09:41 [email or web address] Anesthesia Complication Comment: Post-operative progress note Anesthesia: Postop Eval II Evaluation Mental status: Awake Pain Level: 0 nausea: No Vomiting: No
== END 2023-12-14 10:08 | disposition home or self-care (01) ==
LOC: EN 08:14 → AC 08:15
PROVIDERS: PCP Nurse Practitioner Family; Referring Provider Nurse Practitioner Family; Visit Provider Internal Medicine Gastroenterology
PROC: 0DJ08ZZ Inspection of Upper Intestinal Tract, Via Natural or Artificial Opening Endoscopic (ICD-10-PCS; CPT 43235; principal; 2023-12-14 09:25)
DX: K29.70 Gastritis, unspecified, without bleeding (principal); E11.9 Type 2 diabetes mellitus without complications; K21.00 Gastro-esophageal reflux disease with esophagitis, without bleeding; I10 Essential (primary) hypertension; K29.80 Duodenitis without bleeding; Z79.899 Other long term (current) drug therapy; K25.9 Gastric ulcer, unspecified as acute or chronic, without hemorrhage or perforation; Z79.82 Long term (current) use of aspirin; Z79.02 Long term (current) use of antithrombotics/antiplatelets; Z79.84 Long term (current) use of oral hypoglycemic drugs; I25.10 Atherosclerotic heart disease of native coronary artery without angina pectoris
CPT/HCPCS: 43239; 82962; 88305; 88312; 88341; 88342; A4216; J2405

== ENCOUNTER → 2024-01-17 | Outpatient (CLI) | payer MEDICARE, SELFPAY ==
--- NOTE | 2024-01-17 13:06 | CT_ITS ---
STUDY: CT ABDOMEN AND PELVIS WITH AND WITHOUT CONTRAST REASON FOR EXAM: Female, 53 years old. Diffuse epigastric pain RADIATION DOSAGE (If Supplied By Facility): CTDIvol = ( 18.05 ) mGy, DLP = ( 1307.34 ) mGycm TECHNIQUE: Transaxial images were obtained from the dome of the diaphragm to the symphysis pubis with oral contrast. IV 100mL Isovue-300 was administered. Sagittal and coronal images were reconstructed. Individualized dose optimization techniques were used for this CT. COMPARISON: 10/04/2019 FINDINGS: The visualized lung bases are unremarkable. The visualized portions of the heart are within normal limits. Normal liver. There is non-visualization of the gallbladder, which may be secondary to either contraction or a prior cholecystectomy. Normal spleen. Normal pancreas. Normal bilateral adrenal glands. Kidneys enhance as avidly. No obstructive uropathy or suspicious solid renal lesion. There are bilateral nonobstructing renal stones and multiple contour abnormalities within the left kidney suggesting previous infarcts. Normal visualized stomach. Normal small intestine. Normal colon. The appendix is visualized and appears normal. Appendix seen on coronal recon images 57 through 64 Normal abdominal aorta. Normal inferior vena cava. Normal retroperitoneum. Normal urinary bladder. Normal-appearing uterus, no suspicious adnexal mass or free fluid. Normal abdominal wall. There are diffuse degenerative changes of the visualized lumbar spine, and pelvis. CT/CT Abd/Pelvis W/WO Contrast IMPRESSION: Bilateral nonobstructing nephrolithiasis Contour irregularities within the left kidney suggests previous infarcts No free intraperitoneal fluid, air, or suspicious adenopathy. Normal appendix visualized Electronically Signed: Jose Oliveira MD at 8:27 EST ,
[2024-01-17 13:42] LABS: CREATININE FINGERSTICK < 1.0 mg/dL (0.55-1.02); EGFR FINGERSTICK > 60.0000 mL/min (>60)
== END | disposition home or self-care (01) ==
LOC: CT 13:05
PROVIDERS: PCP Nurse Practitioner Family; Referring Provider Student in an Organized Health Care Education/Training Program; Visit Provider Student in an Organized Health Care Education/Training Program
DX: R10.13 Epigastric pain (principal)
CPT/HCPCS: 74178; Q9967; A4216

== ENCOUNTER → 2024-01-31 | Outpatient (CLI) | payer MEDICARE, SELFPAY ==
--- NOTE | 2024-01-31 13:08 | NM_ITS ---
CLINICAL: 53-year-old female with history of chronic nausea. SEMI-SOLID PHASE 99m Tc SULFUR COLLOID GASTRIC EMPTYING STUDY COMPARISON: CT of the abdomen-pelvis report FINDINGS: The patient was administered 1.0 mCi of 99m Tc sulfur colloid mixed with oatmeal and consumed per os. Image acquisitions in the anterior-posterior projections were obtained for 60 minutes. There is prompt visualization of the stomach. There is no gastroesophageal reflux identified. The T ? linear fit was calculated to be 43.69 minutes, (Normal: 12-56 minutes). NM/Gastric Emptying Study IMPRESSION: 1. NORMAL 99m Tc sulfur colloid semi-solid phase (oatmeal) gastric emptying imaging examination. A. There is normal and preserved semi-solid phase gastric emptying compared to normal controls with maintained first order kinetics throughout all components of the examination. (Constantine et al, J Nucl Med Tech 38: 186, 2010). Electronically Signed: Og Kan DO at 12:58 EST ,
== END | disposition home or self-care (01) ==
LOC: NM 13:05
PROVIDERS: PCP Nurse Practitioner Family; Referring Provider Student in an Organized Health Care Education/Training Program; Visit Provider Student in an Organized Health Care Education/Training Program
DX: R11.0 Nausea (principal)
CPT/HCPCS: 78264; A9541

== ENCOUNTER → 2024-02-22 | Outpatient (CLI) | payer MEDICARE, SELFPAY ==
[2024-02-22 10:59] LABS: Absolute Lymphocyte Count 2.53 X10^3/uL (0.83-4.51); Absolute Neutrophil Count 5.3 X10^3/uL (2.0-7.7); Basophil# 0.05 X10^3/uL; Basophil% 0.6 % (0-1); Eosinophil# 0.18 X10^3/uL; Eosinophils% 2.1 % (0-5); Hematocrit 43.5 % (37-47); Hemoglobin 14.7 g/dL (12.0-15.0); Lymphocyte # 2.53 X10^3/ul (0.83-4.51); Lymphocyte % 29.4 % (19-41); Mean Corp Hgb Conc 33.8 g/dL (32-36); Mean Corpuscular Hgb 30.4 pg (27.0-32.0); Mean Corpuscular Volume 89.9 fL (81-99); Mean Platelet Vol. 10.6 fl (6.2-12.0); Monocyte# 0.55 X10^3/uL; Monocyte% 6.4 % (0-10); NRBC Flagged by Analyzer 0 % (0-5); Neutrophil # 5.26 X10^3/uL (2.7-7.7); Platelet Count 208 K/mm3 (150-450); RBC Distribution Width CV 12.7 % (11.6-14.6); RBC Distribution Width SD 41.8 fl (35.1-43.9); Red Blood Count 4.84 M/mm3 (4.2-5.4); White Blood Count 8.6 K/mm3 (4.4-11.0)
[2024-02-22 11:46] LABS: ALB/GLOB Ratio 0.9 RATIO (0.9-2.4); AST(SGOT) 13 U/L (15-37); Alanine Aminotransfer ALT/SGPT 32 U/L (13-56); Albumin, Serum 3.4 g/dL (3.2-5.0); Alkaline Phosphatase 114 U/L (45-117); Anion Gap 5 (5-15); BUN 11 mg/dL (7-18); BUN/Creat Ratio 17.8 RATIO (10-20); Bilirubin, Direct 0.17 mg/dL (0.00-0.30); Chloride 112 mmol/L (98-107); Cholesterol 114 mg/dL (200); Creatinine, Serum 0.62 mg/dL (0.55-1.02); EST Glomerular Filtration Rate 107 mL/min (>60); Est Glom Filt Rate - Afr Amer 130 mL/min (>60); Globulin 3.6 g/dL (2.2-4.2); Glucose 105 mg/dL (74-106); High Density Lipoprotein 34 mg/dL; Potassium 4.4 mmol/L (3.5-5.1); Sodium Level 142 mmol/L (136-145); T4 Free Direct 1.21 ng/dL (0.76-1.46); Triglycerides 73 mg/dL; Very Low Density Lipoprotein 15 mg/dL (5-40)
== END | disposition home or self-care (01) ==
PROVIDERS: PCP Nurse Practitioner Family; Referring Provider Nurse Practitioner Family; Visit Provider Nurse Practitioner Family
DX: I10 Essential (primary) hypertension (principal); E78.5 Hyperlipidemia, unspecified; Z95.5 Presence of coronary angioplasty implant and graft; R06.09 Other forms of dyspnea; R53.83 Other fatigue
CPT/HCPCS: 36415; 80053; 80061; 82248; 83880; 84439; 84443; 85025

== ENCOUNTER → 2024-03-08 | Outpatient (CLI) | payer MEDICARE, SELFPAY ==
--- NOTE | 2024-03-08 06:47 | CDU_ITS ---
Reason For Study: Carotid artery disease Rt. Velocities/BP Lt. Velocities/BP Prox CCA 80.6/17.3 cm/sec. Prox CCA 80.6/22.3 cm/sec. Mid CCA 75.9/20.1 cm/sec. Mid CCA 75.1/24.5 cm/sec. Dist CCA 57.9/15.4 cm/sec. Dist CCA 57/22 cm/sec. Prox ICA 50.7/16.3 cm/sec. Prox ICA 113.3/37.2 cm/sec. Mid ICA 98.6/40.9 cm/sec. Mid ICA 110.1/38.9 cm/sec. Dist ICA 109.7/39.7 cm/sec. Dist ICA 117.4/38.9 cm/sec. Rt. ICA/CCA = 1.45. Lt. ICA/CCA = 1.56. Prox ECA 112.1/22.5 cm/sec. Prox ECA 92.7/19 cm/sec. Rt. Vert. 62.6/19.2 cm/sec. Lt. Vert. 48.7/13.5 cm/sec. Right Extracranial There is homogeneous, smooth atherosclerotic plaque noted in the right common carotid artery. There is heterogeneous, irregular atherosclerotic plaque noted in the right internal carotid artery. There is heterogeneous, irregular atherosclerotic plaque noted in the right external carotid artery. Antegrade flow is noted in the right vertebral artery. Vascularized structures noted in the right lobe of the thyroid with the largest measuring 1.67 x 1.82 cm. Left Extracranial There is intimal thickening but no significant atherosclerotic plaque noted in the left common carotid artery. There is heterogeneous, irregular atherosclerotic plaque noted in the left internal carotid artery. There is intimal thickening but no significant atherosclerotic plaque noted in the left external carotid artery. Antegrade flow is noted in the left vertebral artery. Vascularized structures noted in the left lobe of the thyroid with the largest measuring 1.23 x 1.36 cm. Procedure Carotid Duplex 17838. This is a Carotid Duplex examination using B-mode, color flow and specral Doppler. Exam performed in department. VL/Carotid Duplex Ultrasound Interpretation Summary Mild (<50%) stenosis right extracranial internal carotid. Mild (<50%) stenosis left extracranial internal carotid. Patent and antegrade vertebrals bilaterally. Vascularized structures noted in the right lobe of the thyroid with the largest measuring 1.67 x 1.82 cm. Vascularized structures noted in the left lobe of the thyroid with the largest measuring 1.23 x 1.36 cm. Ordering Physician: Aneesh Odonnell Referring Physician: Nadege Webber Performed By: Amanda Luna RVT
--- NOTE | 2024-03-11 11:34 | STRESSREP ---
Stress Test Report Pharmacologic myocardial perfusion stress test. 54-year-old lady with a history of multivessel coronary disease Resting EKG demonstrates sinus rhythm with a rate of 75 bpm. Q waves are noted in leads II, III and aVF and V3 through V6. Resting blood pressure is 112/70 mmHg. 0.4 mg of regadenoson was infused per usual protocol followed by rapid intravenous saline flush injection. Continuous EKG monitoring was performed. The maximum heart rate was 104 bpm which was 62% of max impacted heart rate the maximum workload was 1 metabolic equivalent. At rest there were no ST or T wave changes noted to suggest ischemia and at peak infusion nonspecific ST changes were noted which did not meet the criteria for ischemia. No clinical angina is noted. The final blood pressure was 122/80 mmHg. Myocardial perfusion protocol. 11 point mCi of technetium 99m sestamibi was injected at rest. 0.4 mg of regadenoson was infused per usual protocol. At peak infusion 34.8 mCi of technetium 99m sestamibi was injected stress images were obtained stress and rest images were reconstructed and compared in the short axis vertical long and horizontal long axis. Gated images were also obtained. Perfusion SPECT analysis: Review of the stress images demonstrate normal uptake of tracer noted in all areas of the myocardium except for the mid anterior wall with reduced perfusion. The resting images similar demonstrated normal uptake of tracer noted in all areas of the myocardium. The above is suggestive of reversibility in the mid anterior wall. Gated SPECT analysis: The gated ejection fraction is 46%. Conclusion: Abnormal pharmacologic myocardial perfusion stress test. Mildly reduced ejection fraction. Mid anterior ischemia
== END | disposition home or self-care (01) ==
LOC: CVS 06:47
PROVIDERS: PCP Nurse Practitioner Family; Referring Provider Nurse Practitioner Family; Visit Provider Nurse Practitioner Family
DX: I65.22 Occlusion and stenosis of left carotid artery (principal); I73.9 Peripheral vascular disease, unspecified; Z95.5 Presence of coronary angioplasty implant and graft; R07.9 Chest pain, unspecified
CPT/HCPCS: 78452; 93017; 93880; A9500; J2785

== ENCOUNTER → 2024-03-15 | Outpatient (CLI) | payer MEDICARE, SELFPAY ==
--- NOTE | 2024-03-15 09:28 | RAD_ITS ---
PROCEDURE: CHEST PA AND LATERAL REASON FOR EXAM: Preoperative: [facility]. TECHNIQUE: Frontal and lateral views of the chest. COMPARISON: None. FINDINGS: Prior coronary artery stenting is noted. The heart size is normal. The mediastinal contour is unremarkable. The lungs are clear. Mild thoracic spine degenerative changes are noted. No acute osseous change is seen. RAD/Chest PA and Lateral IMPRESSION: No evidence of acute cardiopulmonary disease. Reading Location: [id number]
[2024-03-15 09:53] LABS: Absolute Lymphocyte Count 2.31 X10^3/uL (0.83-4.51); Absolute Neutrophil Count 3.7 X10^3/uL (2.0-7.7); Basophil# 0.07 X10^3/uL; Eosinophil# 0.22 X10^3/uL; Eosinophils% 3.2 % (0-5); Hematocrit 42.9 % (37-47); Hemoglobin 14.7 g/dL (12.0-15.0); Lymphocyte # 2.31 X10^3/ul (0.83-4.51); Mean Corp Hgb Conc 34.3 g/dL (32-36); Mean Corpuscular Hgb 29.9 pg (27.0-32.0); Mean Corpuscular Volume 87.4 fL (81-99); Mean Platelet Vol. 10.7 fl (6.2-12.0); Monocyte# 0.45 X10^3/uL; Monocyte% 6.6 % (0-10); NRBC Flagged by Analyzer 0 % (0-5); Neutrophil # 3.73 X10^3/uL (2.7-7.7); Neutrophil % 55.1 % (47-70); Platelet Count 192 K/mm3 (150-450); RBC Distribution Width CV 12.6 % (11.6-14.6); RBC Distribution Width SD 40.2 fl (35.1-43.9); Red Blood Count 4.91 M/mm3 (4.2-5.4); White Blood Count 6.8 K/mm3 (4.4-11.0)
[2024-03-15 10:51] LABS: Anion Gap 4 (5-15); BUN 12 mg/dL (7-18); BUN/Creat Ratio 20.4 RATIO (10-20); Chloride 113 mmol/L (98-107); Creatinine, Serum 0.59 mg/dL (0.55-1.02); EST Glomerular Filtration Rate 113 mL/min (>60); Est Glom Filt Rate - Afr Amer 137 mL/min (>60); Glucose 114 mg/dL (74-106); Potassium 4.2 mmol/L (3.5-5.1); Sodium Level 139 mmol/L (136-145)
== END | disposition home or self-care (01) ==
LOC: LAB 09:17
PROVIDERS: PCP Nurse Practitioner Family; Referring Provider Nurse Practitioner Family; Visit Provider Nurse Practitioner Family
DX: R07.9 Chest pain, unspecified (principal); I25.5 Ischemic cardiomyopathy; Z95.5 Presence of coronary angioplasty implant and graft
CPT/HCPCS: 36415; 71046; 80048; 85025

== ENCOUNTER 2024-03-25 07:26 | Day surgery (SDC) | payer MEDICARE, SELFPAY ==
--- NOTE | 2024-03-15 12:27 | PCM.HP.BLA ---
History and Physical Date of Admission: 03/25/24 Pleasant 54-year-old lady who has a history of known coronary artery disease she had a prior myocardial infarction in 2017 and underwent a PCI to the ostium of the right coronary artery with a drug-eluting stent. She presented with a non-ST elevation myocardial infarction in March 2020. A cardiac catheterization demonstrated an occluded right coronary artery stent, and occluded mid LAD, 90% left circumflex artery and an 80% diffuse obtuse marginal branch. She also had [id number] collaterals. She underwent angioplasty and stenting of the left anterior descending artery. She subsequently underwent angioplasty and stenting of the circumflex artery as a staged procedure. It appears that in December 2020 she presented with significant chest discomfort was transferred to [facility] and underwent an Impella assisted PCI of the left circumflex artery as well as the ostium of the left anterior descending artery. Her ejection fraction at that time was noted to be 15 to 20%. Her postoperative course was complicated by the fact that she had a total occlusion of the right femoral artery. 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 She had been followed up with the vascular surgeon and underwent a right femoropopliteal bypass surgery. Her most recent echocardiogram from June 2022 demonstrated an ejection fraction of 52% with stage I diastolic dysfunction. She underwent stress test on 03/11/2024 to assess exertional chest pain that was abnormal with mid anterior ischemia and reduce EF. She acknowledges weekly chest discomfort. This is mostly with exertion but occurs occasionally at rest. This is located midsternal, left side of her chest, and right side of her chest. This last for minutes. She denies palpitations. She acknowledges bilateral lower extremity edema and shortness of breath with activity. She denies shortness of breath at rest or orthopnea She acknowledges lightheadedness, weakness, and fatigue. She denies dizziness, near-syncope, or syncope. Intake Vital Signs: See EMR Intake Visit Reasons: [facility] Snipper Required: No Is patient in pain?: No Allergies Penicillins (PCN) Allergy (Verified 02/22/24 09:19) Other metformin Adverse Reaction (Intermediate, Verified 02/22/24 09:19) Nausea/Vom/Diarrhea Medications: See EMR Ejection fraction %: 52 Have you fallen in the past year?: Yes (Trip and fall) [facility] Medical History (Updated 02/22/24 @ 09:48 by Aneesh Odonnell GOVERNMENT MINISTER, GOVERNMENT MINISTER-C) Wears glasses Wears dentures Anxiety Diabetes Low iron Easy bruising Restless legs Back pain Migraine headache Injury of head and neck Syncope Dietary restriction Difficulty swallowing Gastric reflux Smoker Leg cramps History of stress test History of echocardiogram Hypertension History of pain when walking History of edema Cardiology follow-up encounter History of heart attack Abscess of groin, left (01/17/21) Ischemia of left lower extremity Ischemic cardiomyopathy Peripheral vascular disease of extremity with claudication 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 Old inferior wall myocardial infarction History of non-ST elevation myocardial infarction (NSTEMI) (12/23/20) Thickening of wall of gallbladder Hyperlipidemia Nicotine dependence Type 2 diabetes mellitus Essential (primary) hypertension Atherosclerosis of coronary artery of [place] heart without angina pectoris Depression Surgical History S/P femoral-popliteal bypass surgery (06/29/22) History of cardiac catheterization Hx of tonsillectomy History of angioplasty of peripheral vessel (12/25/20) History of coronary artery stent placement (12/25/20) Family History Mother Heart disease Social History Smoking Status: Current every day smoker tobacco type: cigarettes alcohol intake: never substance use type: does not use caffeine: Yes Type: coffee Number of servings: 4 and tea ROS Const Const: Positive for fatigue and weakness Eyes Eyes: Negative for change in vision ENT ENT: Negative for dizziness or balance problems Cardio Chest Pain: Yes Frequency: weekly Character: other (combination ) Onset: other (Mostly with exertion, occasionally at rest) Location: mid sternal, left chest and right chest Duration: minutes Palpitations: No Edema: Bilateral Muscle aches with walking: None Resp Respiratory: Positive for SOB with activity; Negative for SOB at rest or SOB orthopnea\SOB lying down GI GI: Negative nausea or heartburn : Negative for hematuria or frequent nighttime urination/ nocturia Musc Musc: Negative for balance problems Skin Skin: Negative non-healing lesions or rash Neuro Neuro: Positive for lightheadedness and weakness; Negative for dizziness, near syncope or syncope Endo Endo: Positive for fatigue Allergy Allergy/Immunology: Negative for rash Cardiology Exam Const Appearance: cooperative, healthy appearing, comfortable and no acute distress Nutritional Appearance: well nourished and overweight Orientation: alert, awake and oriented x3 Head Head: normal to inspection Ears: hearing grossly normal bilaterally Nose: external nose normal Face and Sinus: face symmetric Mouth: moist mucous membranes Eyes General: appearance normal, both eyes and all related structures Eyelids: eyelids normal EOM: EOM intact bilaterally Neck Neck: normal visual inspection and no JVD Carotids: normal carotid upstroke Chest Chest inspection: normal inspection of the chest, symmetric chest movement and normal respiratory effort; Negative cough Auscultation: Bilateral: Clear to Auscultation Cardio Rate: regular rate Rhythm: regular rhythm Heart sounds: S1 normal and S2 normal; Negative rub, gallop or murmur GI GI: normal to inspection Neuro General: patient alert, patient awake, patient oriented x3 and CN's II-XI intact bilaterally Skin Skin: no rashes or lesions noted Extremities Pulses: Normal: Right Posterior Tibial Pulse, Left Posterior Tibial Pulse, Right Radial Pulse and Left Radial Pulse Lower Extremity Edema: None: Bilateral (cool to touch) Psych Psychological: normal affect Supplemental Info Supplemental Information Echocardiogram from 06/14/2022: Interpretation Summary Normal LV size. Left ventricular systolic function is normal. Stage 1 diastolic dysfunction. The estimated ejection fraction is 52 %. Echocardiogram from 05/12/2021: Interpretation Summary Normal LV size. Left ventricular systolic function is lower limits of normal. The estimated ejection fraction is 50 %. Mid-Inferior: Hypokinetic Stage 1 diastolic dysfunction. The rest of the wall segments are normal. Stress Test from 03/11/2024: Conclusion: Abnormal pharmacologic myocardial perfusion stress test. Mildly reduced ejection fraction. Mid anterior ischemia Cardiac Catheterization and Intervention 12/24/2020 and 12/25/2020 Procedures performed: SUMMARY LEFT HEART 1. Mitral valve: There is moderate regurgitation. 2. Left ventricle: Systolic function is markedly reduced. The estimated ejection fraction is 15-20%. 3. LAD: Ostial lesion: There is a 95% stenosis. 4. Left circumflex: Proximal vessel lesion: There is a 95% stenosis. 5. Right coronary: Ostial lesion: There is a 100% ? Aortography. ? Left ventriculography. ? Left heart catheterization. ? 14Fr Impella CP placement. ? Left common femoral angiography. ? Percutaneous intervention on the 95% stenosis in the proximal left circumflex. Balloon angioplasty. Stent placement. ? Percutaneous intervention on the 95% stenosis at the ostium of the LAD. Balloon angioplasty. Stent placement. ? Balloon angioplasty. 1st lesion: Percutaneous intervention on the 95% stenosis in the proximal left circumflex. 1. A 6F XB 3 guiding catheter was placed. 2. A .014 x 180cm Runthrough NS Extra Floppy wire was placed across the lesion. 3. A 2.25 mm (D) x 30 mm (L) NC Emerge MR balloon was inserted. 4. Balloon angioplasty was performed. A 2.25 mm (D) x 30 mm (L), NC Emerge MR balloon was employed. The balloon was placed across the lesion and given a single inflation with a maximum inflation pressure of 14 mini. 5. A 2.75 x 32mm Synergy XD stent was inserted. 6. Stent placement was performed. A 2.75 x 32mm Synergy XD stent was used. The stent was advanced across the lesion and deployed with two inflations and a maximum pressure of 18 mini. 7. A 2.5 mm (D) x 12 mm (L) Sprinter Legend RX balloon was inserted. 2nd lesion: Percutaneous intervention on the 95% stenosis at the ostium of the LAD. 1. A .014 x 180cm Runthrough NS Extra Floppy wire was placed across the lesion. 2. A 2.5 mm (D) x 12 mm (L) Sprinter Legend RX balloon was inserted. 3. Balloon angioplasty was performed. A 2.5 mm (D) x 12 mm (L), Sprinter Legend RX balloon was employed. The balloon was placed across the lesion and given a single inflation with a maximum inflation pressure of 8 mini. 4. A 3.0 x 24mm Synergy XD stent was inserted. 5. Stent placement was performed. A 3.0 x 24mm Synergy XD stent was used. The stent was advanced across the lesion and deployed with three inflations and a maximum pressure of 16 mini. 3rd lesion:Left Common Femoral Artery 1. A 2.5 mm (D) x 15 mm (L) Sprinter Legend RX balloon was inserted. 2. Balloon angioplasty was performed. A 2.5 mm (D) x 15 mm (L), Sprinter Legend RX balloon was employed. The balloon was placed across the lesion and given six inflations with a maximum inflation pressure of 18 mini. 3. A .035 x 180cm Magic Torque wire was placed across the lesion. 4. Balloon angioplasty was performed. A 6 x 20 x 135cm [place] OTW balloon was employed. The balloon was placed across the lesion and given two inflations with a maximum inflation pressure of 10 mini. Right Limited Lower Extremity Ione Arterial Duplex Report 12/27/2020 Summary: Arterial occlusion, involving the right lower extremity. Affected vessels noted below. Bilateral Lower Extremity Multi Level Physiologic Evaluation Report 12/27/2020 Bilateral Lower Extremity Multi Level Physiologic Evaluation Report 12/27/2020 Interpretation: ? Severely abnormal. The pressure difference occurs at the aorto-iliac level. Study suggests severe arterial insufficiency involving the right lower extremity.The resting GRAHAM is 0.28. ? Study suggests abnormal right toe-brachial index study. The toe-brachial index is 0. ? Moderately abnormal. Study suggests moderate arterial insufficiency involving the left lower extremity.The resting GRAHAM is 0.56. ? Study suggests abnormal left toe-brachial index study. The toe-brachial index is 0.31. Vascular Surgery LLE 12/25/2020 Operation/Procedure 1. Left common femoral endarterectomy with bovine patch angioplasty. 2. Thrombectomy left lower extremity. CAROTID DUPLEX 09/11/2020 Interpretation Summary Mild (<50%) stenosis right extracranial internal carotid. Mild (<50%) stenosis left extracranial internal carotid. Flow within the vertebral arteries is antegrade bilaterally. PCI Cardiac Cath Report 04/28/2020 Procedure performed 1. Successful PCI of diffuse distal left circumflex 90%, with YASIR-3 flow, post PCI and stent reduction of stenosis to 0% and YASIR-3 flow remained 3. Successful placement of a drug-eluting stent 2.25 x 32 mm Synergy, predilatation of the distal left circumflex using 2 x 20 mm emerge balloon. 2. Measurement of IFR to the proximal left circumflex, measured 0.98, test performed x3. This is significant for nonobstructive atherosclerosis of the proximal left circumflex angiographically around 40% 3. High-grade OM1 99% ostial/proximal stenosis, small vessel unable to cross, will treat medically. 4. Successful placement of Perclose to close the right common femoral artery arteriotomy site with no complication. CARDIAC CATHETERIZATION/INTERVENTION 03/18/2020 Procedure performed 1. Moderate sedation using intravenous Versed intravenous fentanyl 2. Left heart catheterization, LVEDP measurement. 3. Successful percutaneous coronary intervention of the culprit lesion, pre-PCI occluded LAD with YASIR 0 flow preprocedure Post PCI successful placement of drug-eluting stent 2.5 x 3 mm Synergy stent/drug-eluting stent with 0% stenosis and YASIR-3 flow in the LAD 4. Successful placement of TR band to close arteriotomy site with no complication 5. Patient will follow-up with the cardiology outpatient for continued of cardiac care plan and to discuss plan of elective PCI of the left circumflex and OM1. Findings, hemodynamic LVEDP measured 34 mmHg Patient was given 4 mg of IV Lasix. Findings of coronary angiography; Separate ostia of the LAD with occluded LAD at the midportion, LAD is a large vessel reach all the way to the apex had a very diagonal which is diffusely diseased Abundant septal branches were noted, 30 septal branch is large and following the procedure LAD has no significant atherosclerosis distally. Left circumflex is a large vessel, OM1 at ostial 80% stenosis, distal left circumflex had 90% stenosis. Collaterals were noted from the left circumflex to the distal RCA/posterolateral branch RCA occluded proximally/occluded RCA stent. Conclusion and plan; 1. Patient presented with acute coronary syndrome with non-ST elevation HI in the LAD distribution with occluded LAD and successful PCI as described 2. Patient has significant elevated LVEDP and will be monitored in the intensive care unit and was given Lasix IV. 3. Patient has occluded proximal RCA stent with collaterals from the circumflex to the distal RCA 4. Patient has significant atherosclerosis of the ostial OM1 and the mid to distal left circumflex CARDIAC CATHETERIZATION/INTERVENTION 12/14/2017 CONCLUSIONS ostial RCA stenosis 95% CORONARY ANGIOGRAPHY DOMINANCE: Co- Dominant LEFT HEART ASSESSMENT Left Ventricular Ejection Fraction: by LV Gram 55 % Normal Left Ventricular systolic function LEFT MAIN: Angiographically normal LEFT ANTERIOR DESCENDING ARTERY: Mild luminal irregularities CIRCUMFLEX ARTERY: Mild luminal irregularities OM 1: Ostial - Moderate luminal irregularities up to 50% RIGHT CORONARY ARTERY: Mild luminal irregularities OSTIAL RCA: 95 % Stenosis INTERVENTION INFORMATION LESION SITE: RCA (Ostial) Lesion Complexity: Non-High/Non-C, culprit lesion: Yes Pre Stenosis: 95 % Pre intervention YASIR flow: 3 PROCEDURE: Drug Eluting Stent with pre and post dilatation Post Stenosis: 0 % Post intervention YASIR flow: 3 Lesion Devices: Cordis 6 Fr JR4 100cm Guide Catheter Terumo .014 Run through Extra Floppy 180cm straight [employer] EMERGE MR 2.50x12 BALLOON Medtronic Resolute RX SUHAIL 2.5x08 [employer] NC EMERGE MR 2.75x08 BALLOON CONCLUSIONS Successful PTCA/SUHAIL ostial RCA using Resolute Integrity 2.5x8 mm, post-dilated using 2.75 mm balloon Extremity arterial study from 06/19/2018: Interpretation Summary 1. Right monophasic flow at ankle and GRAHAM 0.53. Suggestive iliofemoral disease. 2. Left femoral occlusive disease with GRAHAM 0.61 3. Small vessel disease with graham 0.19/0.29. Assessment and Plan Assessment and Plan (1) History of coronary artery stent placement: Status: Chronic Comment: [id number] RCA w/ 2.5 x 8 mm Resolute Integrity Stent 12/14/17; PCI-SUHAIL-LAD w/ 2.5 x 3.0 Synergy Stent 03/18/20; [id number] LCx w/ 2.25 x 32 mm Synergy Stent 04/28/20; IYR-MUK-[id number] LCx w/ 2.75 x 32mm Synergy XD Stent and SUHAIL-Ostium LAD w/ 3.0 x 24mm Synergy XD Stent Plan: Her last heart catheterization at [facility] in December 2020 showed 100% ostial occlusion to RCA with collateral flow, ostial LAD with 95% stenosis, proximal left circumflex was 95% stenosis, and an ejection fraction of 15-20%. She underwent stent placement to proximal left circumflex and ostium of LAD. Echocardiogram in June 2022 showed an ejection fraction of 52%. ECG from 08/22/2023 showed Sinus Rhythm without acute ST or T wave changes. Her EKG on 02/22/2024 is similar to previous. As her stress test was abnormal, she will proceed with heart catheterization. (2) Essential (primary) hypertension: Status: Chronic Plan: Patient's blood pressure is well-controlled. We will continue to monitor. We will not make any medication regimen changes. (3) Hyperlipidemia: Status: Chronic Qualifiers: Hyperlipidemia type: unspecified Qualified Code(s): E78.5 - Hyperlipidemia, unspecified Plan: She undergo laboratory evaluation after office visit to reassess lipid and liver panel. Depending on results, further recommendation be made. She will continue current high intensity statin. (4) Ischemic cardiomyopathy: Status: Chronic Plan: Her most recent echocardiogram in June 2022 demonstrates preserved left ventricular systolic function. BNP on 02/22/2024 was negative at 56. She will continue current medical therapy. (5) Peripheral vascular disease of extremity with claudication: Status: Chronic Comment: Status post right femoral to above-knee popliteal bypass with reversed GSV June 2022; status post left femoral thrombectomy/endarterectomy December 2020 Arterial study September 2023: Right GRAHAM 1.05 with triphasic waveforms Left GRAHAM 0.61 with biphasic waveforms Arterial duplex September 2023: Patent right femoropopliteal bypass with normal velocities and no evidence of stenosis. Retrograde flow in the AT artery Left common femoral artery patent with normal velocities. SFA proximal occlusion with distal reconstitution. Plan: She is status post femoral?popliteal bypass surgery in June 2022. She is encouraged continue to follow with vascular team for ongoing evaluation management. (6) Diabetes: Status: Acute Comment: ON MED Plan: She does have history of type 2 diabetes. She is currently on glipizide, Jardiance, and Trulicity. The importance of diabetic control in relation to cardiovascular health reviewed with her in detail. She was encouraged continue to follow with primary care provider for ongoing evaluation. (7) Tobacco abuse: Status: Chronic Plan: Smoking cessation encouraged. The importance reviewed with her. (8) Chest pain: Status: Acute Plan: Twelve-lead ECG on 02/22/2024 shows sinus rhythm at a rate of 87 bpm, NH interval 164, QTc 443, and QRS 106. She has T wave inversion in lead I and aVL. Munday is noted be abnormal at -43. As her stress test was abnormal, she undergo repeat heart catheterization.
[2024-03-22 08:24] VITALS: BMI 31.7
--- NOTE | 2024-03-25 09:44 | CL.D_ITS ---
Patient Name: WILDER BALDERAS Study Date: 03/25/2024 Performing: Aditya Dominguez MD Ht: 64 inches 162.56 cm : 1970 Wt: 184.99 lbs 83.91 kg Age: 54 Gender: female BSA: 1.89 PROCEDURE(S) PERFORMED DC01-(00041)LHC/COR/LV CLINICAL PROFILE AND INDICATIONS Indications: Worsening Angina Heart Failure: None Stress/Imaging Date: 03/11/24Stress Test with SPECT MPI: Positive Low Risk CONCLUSIONS Severe disease involving especially the right coronary artery with subtotal occlusion of the proximal vessel, and previously stented left anterior descending artery and circumflex artery which is patent. RECOMMENDATIONS Medical therapy DESCRIPTION OF PROCEDURE The patient arrived to the procedure lab. The risks and benefits of the procedure as well as a full description of our services here and current unavailability of surgical backup were fully explained to the patient and/or their significant other prior to the catheterization. The Timeout was completed, verifying the correct patient and procedure. The patient's procedural site was prepped and draped in the usual fashion. Local anesthetic was given subcutaneously to right radial region with Lidocaine 2%. Using a modified Seldinger technique, arterial access was obtained via the right radial artery, a 6Fr sheath was inserted. Right Coronary Artery selective angiography was then performed in multiple views using a 5 Fr. 4.0 [place] catheter. Left Coronary Artery selective angiography was performed in multiple views using a 5 Fr. JL3.5 catheter. Left Ventriculography was performed in MATTHEWS projection using a 5 Fr. Pigtail catheter. LV to AO pullback pressures were then recorded.The arterial sheath was pulled and a TR Band was applied for hemostasis CORONARY ANGIOGRAPHY DOMINANCE: Co- Dominant LEFT HEART ASSESSMENT Left Ventricular Ejection Fraction: by LV Gram 50 % Inferior Mid Hypokinesis - Severe. Inferior Basal Hypokinesis - Mild Depressed Left Ventricular systolic function LEFT MAIN: Short vessel with mild disease and bifurcates to left anterior descending artery and circumflex artery LEFT ANTERIOR DESCENDING ARTERY: Previously extensively stented in the proximal to mid and mid to distal region with mild in-stent stenosis. Diagonal vessel with a 50% ostial stenosis is present. CIRCUMFLEX ARTERY: Codominant vessel previously stented from the proximal to the midsegment. The stent itself appears to be patent with minimal in-stent stenosis. Today is her first obtuse marginal branch with a 90% ostial stenosis after the origin of the stent. Distally the vessel has mild diffuse luminal irregularities including RIGHT CORONARY ARTERY: . Codominant vessel with severe subtotal occlusion of the proximal region with moderate diffuse disease in the midsegment with a small vessel which tapers to a posterolateral vessel. COLLATERAL FLOW: Collateral flow from Left to Right COMPLICATIONS No Complications PROCEDURE MEDICATIONS Versed 1 mg IV Fentanyl 50 mcg IV Versed 1 mg IV Oxygen: 2 L/min via nasal cannula Heparin given IA 03/25/2024 09:16:27 Verapamil 2.5mg, Ntg 200mcgs, 2000 units of Heparin given IA 03/25/2024 09:16:27 SUMMARY OF HEMODYNAMIC DATA Time AIR REST ECG 07:49:21 AO 82/47 (62) SA 09:15:04 LV 124/0, 8 09:30:59 LV 117/-1, 7 09:31:06 LV 0/36, 0 09:31:44 LV 112/0, 9 09:31:51 LV 114/0, 9 09:31:53 LVp 115/-2, 10 09:31:58 AOp 121/49 (79) 09:32:03 09:45:02 Signed By Aditya Dominguez MD On 03/25/2024 10:00:49 Signed By Aditya Dominguez MD On 03/25/2024 09:43:33 Aditya Dominguez MD
== END 2024-03-25 11:10 | disposition home or self-care (01) ==
PROVIDERS: PCP Nurse Practitioner Family; Referring Provider Internal Medicine Cardiovascular Disease; Visit Provider Internal Medicine Cardiovascular Disease
DX: T82.855A Stenosis of coronary artery stent, initial encounter (principal); E11.51 Type 2 diabetes mellitus with diabetic peripheral angiopathy without gangrene; I25.119 Atherosclerotic heart disease of native coronary artery with unspecified angina pectoris; I25.5 Ischemic cardiomyopathy; I10 Essential (primary) hypertension; E78.5 Hyperlipidemia, unspecified; I25.2 Old myocardial infarction; Y71.2 Prosthetic and other implants, materials and accessory cardiovascular devices associated with adverse incidents; Z79.82 Long term (current) use of aspirin; Z79.84 Long term (current) use of oral hypoglycemic drugs; Z79.85 Long-term (current) use of injectable non-insulin antidiabetic drugs; Z79.02 Long term (current) use of antithrombotics/antiplatelets; Z79.899 Other long term (current) drug therapy; F17.210 Nicotine dependence, cigarettes, uncomplicated; Z95.5 Presence of coronary angioplasty implant and graft; Z95.820 Peripheral vascular angioplasty status with implants and grafts
CPT/HCPCS: 93458; 99152; 99153; Q9967; C1769; C1894

== ENCOUNTER → 2024-12-13 | Outpatient (CLI) | payer MEDICARE, SELFPAY ==
--- NOTE | 2024-12-13 08:38 | ART_ITS ---
Reason For Study VL/Ankle Brachial Index
--- NOTE | 2024-12-13 08:38 | ADUL_ITS ---
Reason For Study VL/US Art Duplex Unilat Lower Ext
== END | disposition home or self-care (01) ==
LOC: CVS 08:36
PROVIDERS: PCP Nurse Practitioner Family; Referring Provider Physician Assistant; Visit Provider Physician Assistant
DX: I73.9 Peripheral vascular disease, unspecified (principal)
CPT/HCPCS: 93922; 93926